=== PATIENT | male | born 1940 | race Caucasian/White ===

== ENCOUNTER 2020-01-04 09:01 | Outpatient (CLI) | payer MEDICARE, SELFPAY ==
[2020-01-04 13:16] LABS: Cholesterol 128 mg/dL (0-200); Creatinine Urine 81.2 mg/dL; HDL Direct 36 mg/dL; Total Protein Urine Random 11 mg/dL; Triglycerides 113 mg/dL (<150)
[2020-01-04 13:17] LABS: Alanine Aminotransferase 23 U/L (4-50); Albumin Level 4.3 g/dL (3.5-5.1); Alkaline Phosphatase 73 U/L (38-126); Aspartate Amino Transferase 22 U/L (17-59); Bilirubin,Total 0.5 mg/dL (0.2-1.3); Blood Urea Nitrogen 46 mg/dL (9-20); Calcium 9.4 mg/dL (8.4-10.2); Carbon Dioxide 23 mmol/L (22-30); Chloride 104 mmol/L (98-107); Estimated Glomerular Filt Rate 34; Glucose 121 mg/dL (75-110); Potassium 5.3 mmol/L (3.4-5.0); Sodium 137 mmol/L (137-145)
[2020-01-04 13:19] LABS: Hemoglobin A1C 8.5 % (<5.7)
[2020-01-04 13:26] LABS: Parathyroid Intact 69.7 pg/mL (7.5-53.5)
[2020-01-04 13:27] LABS: LDL Cholesterol Direct 76 mg/dL
[2020-01-04 13:31] LABS: Vitamin D 25 Hydroxy 22.2 ng/mL
== END 2020-01-04 09:02 | disposition home or self-care (01) ==
LOC: ANHWCLAB 09:12
PROVIDERS: PCP Internal Medicine; Visit Provider Internal Medicine Nephrology
DX: I10 Essential (primary) hypertension (principal); Z79.899 Other long term (current) drug therapy
CPT/HCPCS: 36415; 80053; 80061; 82306; 82570; 83036; 83970; 84100; 84156

== ENCOUNTER 2020-05-30 09:02 | Outpatient (CLI) | payer MEDICARE, SELFPAY ==
[2020-05-30 09:41] LABS: Albumin Level 4.2 g/dL (3.5-5.1); Anion Gap 12.4 mmol/L (7-16); Blood Urea Nitrogen 36 mg/dL (9-20); Calcium 9.6 mg/dL (8.4-10.2); Carbon Dioxide 22 mmol/L (22-30); Chloride 108 mmol/L (98-107); Estimated Glomerular Filt Rate 34; Glucose 140 mg/dL (75-110); Phosphorus 4.1 mg/dL (2.5-4.5); Potassium 4.4 mmol/L (3.4-5.0); Sodium 138 mmol/L (137-145)
[2020-05-30 10:44] LABS: Creatinine Urine 124.8 mg/dL; Total Protein Urine Random 16 mg/dL
[2020-05-30 11:16] LABS: Vitamin D 25 Hydroxy 34.4 ng/mL
== END 2020-05-30 09:03 | disposition home or self-care (01) ==
PROVIDERS: PCP Internal Medicine; Visit Provider Internal Medicine Nephrology
DX: N18.4 Chronic kidney disease, stage 4 (severe) (principal); E11.29 Type 2 diabetes mellitus with other diabetic kidney complication; I12.9 Hypertensive chronic kidney disease with stage 1 through stage 4 chronic kidney disease, or unspecified chronic kidney disease
CPT/HCPCS: 36415; 80069; 82306; 82570; 84156

== ENCOUNTER 2020-11-28 09:12 | Outpatient (CLI) | payer MEDICARE, SELFPAY ==
[2020-11-28 10:01] LABS: Total Protein Urine Random 15 mg/dL
[2020-11-28 10:11] LABS: Alanine Aminotransferase 25 U/L (4-50); Albumin Level 4.2 g/dL (3.5-5.1); Alkaline Phosphatase 69 U/L (38-126); Anion Gap 6 mmol/L (8-16); Aspartate Amino Transferase 26 U/L (17-59); Bilirubin,Total 0.5 mg/dL (0.2-1.3); Blood Urea Nitrogen 29 mg/dL (9-20); Carbon Dioxide 29 mmol/L (22-30); Chloride 105 mmol/L (98-107); Cholesterol 122 mg/dL (0-200); Estimated Glomerular Filt Rate 32; Glucose 141 mg/dL (75-110); HDL Direct 35 mg/dL; Potassium 5.3 mmol/L (3.4-5.0); Sodium 140 mmol/L (137-145); Triglycerides 117 mg/dL (<150)
[2020-11-28 10:12] LABS: Phosphorus 3.5 mg/dL (2.5-4.5)
[2020-11-28 10:21] LABS: LDL Cholesterol Direct 63 mg/dL
[2020-11-28 10:24] LABS: Parathyroid Intact 104.9 pg/mL (7.5-53.5)
[2020-11-28 11:14] LABS: Vitamin D 25 Hydroxy 39.6 ng/mL
[2020-11-28 12:50] LABS: Hemoglobin A1C 8.3 % (<5.7)
== END 2020-11-28 09:13 | disposition home or self-care (01) ==
PROVIDERS: PCP Internal Medicine; Referring Provider Internal Medicine Nephrology; Visit Provider Internal Medicine
DX: I12.9 Hypertensive chronic kidney disease with stage 1 through stage 4 chronic kidney disease, or unspecified chronic kidney disease (principal); R80.8 Other proteinuria; N18.4 Chronic kidney disease, stage 4 (severe); E11.22 Type 2 diabetes mellitus with diabetic chronic kidney disease; E55.9 Vitamin D deficiency, unspecified; E03.9 Hypothyroidism, unspecified; E78.5 Hyperlipidemia, unspecified
CPT/HCPCS: 36415; 80053; 80061; 81050; 82306; 83036; 83970; 84100; 84156; 84443

== ENCOUNTER 2021-05-28 08:56 | Outpatient (CLI) | payer MEDICARE, SELFPAY ==
[2021-05-28 17:12] LABS: Alanine Aminotransferase 26 U/L (4-50); Albumin Level 4.1 g/dL (3.5-5.1); Alkaline Phosphatase 73 U/L (38-126); Anion Gap 7 mmol/L (8-16); Aspartate Amino Transferase 19 U/L (17-59); Bilirubin,Total 0.5 mg/dL (0.2-1.3); Blood Urea Nitrogen 38 mg/dL (9-20); Calcium 9.3 mg/dL (8.4-10.2); Carbon Dioxide 21 mmol/L (22-30); Chloride 111 mmol/L (98-107); Cholesterol 135 mg/dL (0-200); Estimated Glomerular Filt Rate 34; Glucose 126 mg/dL (65-110); HDL Direct 44 mg/dL; Phosphorus 3.3 mg/dL (2.5-4.5); Potassium 5.4 mmol/L (3.4-5.0); Sodium 139 mmol/L (137-145); Triglycerides 75 mg/dL (<150)
[2021-05-28 17:19] LABS: Creatinine Urine 87.6 mg/dL; Total Protein Urine Random 13 mg/dL; Ur Ttl Prot Creatinine Ratio 0.15 mg/mg (0-0.20)
[2021-05-28 17:23] LABS: LDL Cholesterol Direct 65 mg/dL
[2021-05-28 17:34] LABS: Hemoglobin A1C 7.7 % (<5.7); Vitamin D 25 Hydroxy 45.7 ng/mL
== END 2021-05-28 08:57 | disposition home or self-care (01) ==
PROVIDERS: PCP Internal Medicine; Visit Provider Internal Medicine
DX: E03.9 Hypothyroidism, unspecified (principal); E11.22 Type 2 diabetes mellitus with diabetic chronic kidney disease; E55.9 Vitamin D deficiency, unspecified; E78.5 Hyperlipidemia, unspecified; I12.9 Hypertensive chronic kidney disease with stage 1 through stage 4 chronic kidney disease, or unspecified chronic kidney disease; N18.30 Chronic kidney disease, stage 3 unspecified; R80.8 Other proteinuria
CPT/HCPCS: 36415; 80053; 80061; 82306; 82570; 83036; 84100; 84156; 84443

== ENCOUNTER 2021-12-11 09:42 | Outpatient (CLI) | payer MEDICARE, SELFPAY ==
[2021-12-11 17:18] LABS: Albumin Level 4.2 g/dL (3.5-5.1); Anion Gap 12 mmol/L (8-16); Blood Urea Nitrogen 36 mg/dL (9-20); Calcium 9.1 mg/dL (8.4-10.2); Carbon Dioxide 21 mmol/L (22-30); Chloride 107 mmol/L (98-107); Estimated Glomerular Filt Rate 34; Glucose 203 mg/dL (65-110); Potassium 4.7 mmol/L (3.4-5.0); Sodium 140 mmol/L (137-145)
[2021-12-11 17:22] LABS: Creatinine Urine 115.9 mg/dL; Total Protein Urine Random 17 mg/dL; Ur Ttl Prot Creatinine Ratio 0.15 mg/mg (0-0.20)
[2021-12-11 17:30] LABS: Parathyroid Intact 103.4 pg/mL (7.5-53.5)
[2021-12-11 17:37] LABS: Vitamin D 25 Hydroxy 43.2 ng/mL
== END 2021-12-11 09:43 | disposition home or self-care (01) ==
LOC: ANHWCLAB 09:46
PROVIDERS: PCP Internal Medicine; Referring Provider Internal Medicine Nephrology; Visit Provider Internal Medicine Nephrology
DX: N18.32 Chronic kidney disease, stage 3b (principal); E11.29 Type 2 diabetes mellitus with other diabetic kidney complication; I12.9 Hypertensive chronic kidney disease with stage 1 through stage 4 chronic kidney disease, or unspecified chronic kidney disease; R53.81 Other malaise
CPT/HCPCS: 36415; 80069; 82306; 82570; 83970; 84156

== ENCOUNTER 2022-06-09 09:44 | Outpatient (CLI) | payer MEDICARE, SELFPAY ==
[2022-06-09 10:22] LABS: Creatinine Urine 159.2 mg/dL; Total Protein Urine Random 26 mg/dL; Ur Ttl Prot Creatinine Ratio 0.16 mg/mg (0-0.20)
[2022-06-09 10:24] LABS: Albumin Level 4.4 g/dL (3.5-5.1); Anion Gap 9 mmol/L (8-16); Blood Urea Nitrogen 32 mg/dL (9-20); Calcium 9.3 mg/dL (8.4-10.2); Carbon Dioxide 24 mmol/L (22-30); Chloride 104 mmol/L (98-107); Estimated Glomerular Filt Rate 34; Glucose 149 mg/dL (65-110); Phosphorus 3.2 mg/dL (2.5-4.5); Sodium 137 mmol/L (137-145)
== END 2022-06-09 09:45 | disposition home or self-care (01) ==
PROVIDERS: PCP Internal Medicine; Visit Provider Internal Medicine Nephrology
DX: I12.9 Hypertensive chronic kidney disease with stage 1 through stage 4 chronic kidney disease, or unspecified chronic kidney disease (principal); N18.32 Chronic kidney disease, stage 3b; E11.29 Type 2 diabetes mellitus with other diabetic kidney complication
CPT/HCPCS: 36415; 80069; 82570; 84156

== ENCOUNTER 2022-07-06 15:12 | Outpatient (CLI) | payer MEDICARE, SELFPAY ==
--- NOTE | ~2022-07-06 | XR_ITS ---
EXAM: XR knee LT 3V DATE: 07/06/2022 16:00 HISTORY: ant Lt knee pain, bump on Lt patella; no injury . COMPARISON: None available. FINDINGS: Normal mineralization. No fracture or dislocation. No lytic or blastic lesion. Mild medial and lateral joint space narrowing. Tricompartmental osteophytosis, moderate in the patellofemoral co mpartment. Patellar tendon origin enthesopathy. Ovoid prepatellar soft tissue/calcific density. No er osion or periosteal change. Vascular calcifications. 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 Patellar tendon enthesopathy. 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 Reviewed, dictated and finalized at location K. 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 Patellar tendon enthesopathy. Tricompartmental ost eoarthritis, moderate in the patellofemoral compartment.
== END 2022-07-06 15:13 | disposition home or self-care (01) ==
LOC: ANHIMG 15:17
PROVIDERS: PCP Internal Medicine; Visit Provider Internal Medicine
DX: M17.12 Unilateral primary osteoarthritis, left knee (principal); M70.42 Prepatellar bursitis, left knee
CPT/HCPCS: 73562

== ENCOUNTER 2022-12-14 09:02 | Outpatient (CLI) | payer MEDICARE, SELFPAY ==
[2022-12-14 18:13] LABS: Cholesterol 137 mg/dL (0-200); HDL Direct 31 mg/dL; Triglycerides 98 mg/dL (<150)
[2022-12-14 18:14] LABS: Albumin Level 4.3 g/dL (3.5-5.1); Anion Gap 8 mmol/L (8-16); Blood Urea Nitrogen 40 mg/dL (9-20); Calcium 8.9 mg/dL (8.4-10.2); Carbon Dioxide 25 mmol/L (22-30); Chloride 105 mmol/L (98-107); Estimated Glomerular Filt Rate 32; Glucose 162 mg/dL (65-110); Potassium 4.8 mmol/L (3.4-5.0); Sodium 138 mmol/L (137-145)
[2022-12-14 18:24] LABS: LDL Cholesterol Direct 69 mg/dL
[2022-12-14 18:29] LABS: Total Protein Urine Random 13 mg/dL; Ur Ttl Prot Creatinine Ratio 0.11 mg/mg (0-0.20)
[2022-12-14 18:38] LABS: Parathyroid Intact 91.1 pg/mL (7.5-53.5)
[2022-12-14 18:41] LABS: Vitamin D 25 Hydroxy 45.8 ng/mL
[2022-12-14 18:42] LABS: Hemoglobin A1C 7.5 % (<5.7)
== END 2022-12-14 09:03 | disposition home or self-care (01) ==
LOC: ANHWCLAB 09:08
PROVIDERS: PCP Internal Medicine; Visit Provider Internal Medicine Nephrology
DX: N18.32 Chronic kidney disease, stage 3b (principal); E11.22 Type 2 diabetes mellitus with diabetic chronic kidney disease; N25.81 Secondary hyperparathyroidism of renal origin; E55.9 Vitamin D deficiency, unspecified; E03.9 Hypothyroidism, unspecified; E78.2 Mixed hyperlipidemia
CPT/HCPCS: 36415; 80061; 80069; 82306; 82570; 83036; 83970; 84156; 84443

== ENCOUNTER 2023-05-03 09:27 | Outpatient (CLI) | payer MEDICARE, SELFPAY ==
[2023-05-03 16:40] LABS: Hematocrit 37.9 % (42.0-52.0); Hemoglobin 11.9 g/dL (14.0-18.0); Mean Corpuscular HGB Conc 31.4 g/dl (32-36); Mean Corpuscular Hemoglobin 31.3 pg (26-34); Mean Corpuscular Volume 99.7 fl (80-100); Mean Platelet Volume 9.4 fl (7.4-10.4); Platelet Count Result 414 k/mm3 (150-375); Red Cell Distribution Width 14.2 % (11.5-14.5)
[2023-05-03 16:54] LABS: Alanine Aminotransferase 17 U/L (6-50); Albumin Level 4.2 g/dL (3.5-5.1); Alkaline Phosphatase 73 U/L (38-126); Anion Gap 0 mmol/L (8-16); Aspartate Amino Transferase 99 U/L (17-59); Bilirubin,Total 0.6 mg/dL (0.2-1.3); Blood Urea Nitrogen 38 mg/dL (9-20); Calcium 9.2 mg/dL (8.4-10.2); Carbon Dioxide 29 mmol/L (22-30); Chloride 106 mmol/L (98-107); Estimated Glomerular Filt Rate 36; Glucose 98 mg/dL (65-110); Potassium 4.8 mmol/L (3.4-5.0); Sodium 135 mmol/L (137-145)
[2023-05-03 16:56] LABS: Hemoglobin A1C 7.3 % (<5.7)
[2023-05-03 17:08] LABS: Free T4 Free Thyroxine 1.86 ng/mL (0.78-2.19)
[2023-05-06 23:14] LABS: Vitamin D 1,25 (OH)2 Total 21 pg/mL (18-72); Vitamin D2 1,25 (OH)2 <8 pg/mL; Vitamin D3 1,25 (OH)2 21 pg/mL
== END 2023-05-03 09:28 | disposition home or self-care (01) ==
LOC: ANHWCLAB 09:28
PROVIDERS: PCP Family Medicine; Visit Provider Internal Medicine
DX: E03.9 Hypothyroidism, unspecified (principal); E11.22 Type 2 diabetes mellitus with diabetic chronic kidney disease; E55.9 Vitamin D deficiency, unspecified; I10 Essential (primary) hypertension; N18.32 Chronic kidney disease, stage 3b
CPT/HCPCS: 36415; 80053; 82652; 83036; 84439; 84443; 85027

== ENCOUNTER 2023-06-15 09:12 | Outpatient (CLI) | payer MEDICARE, SELFPAY ==
[2023-06-15 09:57] LABS: Creatinine Urine 97.7 mg/dL; Total Protein Urine Random 14 mg/dL; Ur Ttl Prot Creatinine Ratio 0.14 mg/mg (0-0.20)
[2023-06-15 10:28] LABS: Albumin Level 3.8 g/dL (3.5-5.1); Anion Gap 3 mmol/L (8-16); Blood Urea Nitrogen 40 mg/dL (9-20); Calcium 8.7 mg/dL (8.4-10.2); Carbon Dioxide 26 mmol/L (22-30); Chloride 106 mmol/L (98-107); Estimated Glomerular Filt Rate 34; Glucose 162 mg/dL (65-110); Phosphorus 3.6 mg/dL (2.5-4.5); Potassium 4.5 mmol/L (3.4-5.0); Sodium 135 mmol/L (137-145)
== END 2023-06-15 09:13 | disposition home or self-care (01) ==
LOC: ANHLAB 09:13
PROVIDERS: PCP Family Medicine; Visit Provider Internal Medicine Nephrology
DX: E11.22 Type 2 diabetes mellitus with diabetic chronic kidney disease (principal); I12.9 Hypertensive chronic kidney disease with stage 1 through stage 4 chronic kidney disease, or unspecified chronic kidney disease; N18.32 Chronic kidney disease, stage 3b
CPT/HCPCS: 36415; 80069; 82570; 84156

== ENCOUNTER 2023-11-03 09:12 | Outpatient (CLI) | payer MEDICARE, SELFPAY ==
[2023-11-03 17:27] LABS: Basophils Absolute Auto 0.1 K/mm3 (0.0-0.1); Basophils Percent Auto 1.4 % (0.2-1.2); Eosinophils Absolute Auto 0.3 K/mm3 (0-0.3); Eosinophils Percent Auto 4.7 % (0-4.4); Hematocrit 38.3 % (42.0-52.0); Hemoglobin 11.8 g/dL (14.0-18.0); Immature Granulocyte Absolute 0.02 K/mm3 (0.00-0.031); Immature Granulocyte Percent A 0.3 % (0-0.5); Lymphocytes Absolute Auto 1.75 K/mm3 (0.9-3.2); Lymphocytes Percent Auto 25.1 % (18.3-44.2); Mean Corpuscular HGB Conc 30.8 g/dl (32-36); Mean Corpuscular Hemoglobin 31.4 pg (26-34); Mean Corpuscular Volume 101.9 fl (80-100); Mean Platelet Volume 9.4 fl (7.4-10.4); Monocytes Absolute Auto 0.6 K/mm3 (0.1-0.6); Monocytes Percent Auto 8.9 % (2.6-8.5); Neutrophils Absolute Auto 4.2 K/mm3 (1.3-6.7); Neutrophils Percent Auto 59.6 % (45.5-73.1); Nucleated Red Blood Cells Perc 0.6 % (0.0-0.2); Platelet Count Result 590 k/mm3 (150-375); Red Blood Count 3.76 M/mm3 (4.6-6.20); Red Cell Distribution Width 14.3 % (11.5-14.5)
[2023-11-03 17:33] LABS: Anion Gap 5 mmol/L (8-16); Blood Urea Nitrogen 35 mg/dL (9-20); Calcium 9.3 mg/dL (8.4-10.2); Carbon Dioxide 28 mmol/L (22-30); Chloride 104 mmol/L (98-107); Estimated Glomerular Filt Rate 36; Glucose 115 mg/dL (65-110); Phosphorus 3.5 mg/dL (2.5-4.5); Potassium 5.1 mmol/L (3.4-5.0); Sodium 137 mmol/L (137-145)
[2023-11-03 17:35] LABS: Alanine Aminotransferase 22 U/L (6-50); Alkaline Phosphatase 74 U/L (38-126); Anion Gap 7 mmol/L (8-16); Aspartate Amino Transferase 107 U/L (17-59); Bilirubin,Total 0.6 mg/dL (0.2-1.3); Blood Urea Nitrogen 35 mg/dL (9-20); Calcium 9.2 mg/dL (8.4-10.2); Carbon Dioxide 27 mmol/L (22-30); Chloride 104 mmol/L (98-107); Cholesterol 139 mg/dL (0-200); Estimated Glomerular Filt Rate 36; Glucose 113 mg/dL (65-110); HDL Direct 42 mg/dL; Potassium 5.2 mmol/L (3.4-5.0); Sodium 138 mmol/L (137-145); Triglycerides 106 mg/dL (<150)
[2023-11-03 17:46] LABS: Parathyroid Intact 95.3 pg/mL (7.5-53.5)
[2023-11-03 17:46] LABS: LDL Cholesterol Direct 63 mg/dL
[2023-11-03 17:48] LABS: Creatinine Urine 122.9 mg/dL; Total Protein Urine Random 8 mg/dL; Ur Ttl Prot Creatinine Ratio 0.07 mg/mg (0-0.20)
[2023-11-03 18:04] LABS: Thyroid Stimulating Hormone 0.924 uIU/mL (0.465-4.680)
[2023-11-03 18:19] LABS: Creatinine Urine 118.9 mg/dL
[2023-11-03 18:27] LABS: MALB Creatinine Ratio 28.5 mg/g (0-30); Microalbumin Urine Random 33.9 mg/L (0-16.7)
[2023-11-03 18:31] LABS: Vitamin D 25 Hydroxy 40.5 ng/mL
[2023-11-03 19:24] LABS: Hemoglobin A1C 7.2 % (<5.7)
== END 2023-11-03 09:13 | disposition home or self-care (01) ==
PROVIDERS: Internal Medicine Nephrology; PCP Nurse Practitioner Family; Visit Provider Nurse Practitioner Family
DX: E11.22 Type 2 diabetes mellitus with diabetic chronic kidney disease (principal); R53.83 Other fatigue; E78.2 Mixed hyperlipidemia; E03.9 Hypothyroidism, unspecified; I12.9 Hypertensive chronic kidney disease with stage 1 through stage 4 chronic kidney disease, or unspecified chronic kidney disease; E55.9 Vitamin D deficiency, unspecified
CPT/HCPCS: 36415; 80053; 80061; 80069; 82043; 82306; 82570; 83036; 83970; 84156; 84443; 85025

== ENCOUNTER 2024-06-04 09:36 | Outpatient (CLI) | payer MEDICARE, SELFPAY ==
[2024-06-04 10:17] LABS: Anion Gap 9 mmol/L (4-12); Blood Urea Nitrogen 91 mg/dL (9-20); Calcium 9.3 mg/dL (8.4-10.2); Carbon Dioxide 27 mmol/L (22-30); Chloride 100 mmol/L (98-107); Estimated Glomerular Filt Rate 42; Glucose 100 mg/dL (65-110); Phosphorus 5.5 mg/dL (2.5-4.5); Potassium 5.3 mmol/L (3.4-5.0); Sodium 136 mmol/L (137-145)
[2024-06-04 11:51] LABS: Creatinine Urine 103.3 mg/dL; Total Protein Urine Random 7 mg/dL; Ur Ttl Prot Creatinine Ratio 0.07 mg/mg (0-0.20)
== END 2024-06-04 09:37 | disposition home or self-care (01) ==
LOC: ANHLAB 09:42
PROVIDERS: PCP Nurse Practitioner Family; Visit Provider Internal Medicine Nephrology
DX: E11.22 Type 2 diabetes mellitus with diabetic chronic kidney disease (principal); N18.32 Chronic kidney disease, stage 3b; I12.9 Hypertensive chronic kidney disease with stage 1 through stage 4 chronic kidney disease, or unspecified chronic kidney disease
CPT/HCPCS: 36415; 80069; 82570; 84156

== ENCOUNTER 2024-10-04 09:09 | Outpatient (CLI) | payer MEDICARE, SELFPAY ==
[2024-10-04 10:13] LABS: Alanine Aminotransferase 18 U/L (6-50); Alkaline Phosphatase 63 U/L (38-126); Anion Gap 3 mmol/L (4-12); Aspartate Amino Transferase 29 U/L (17-59); Bilirubin,Total 0.8 mg/dL (0.2-1.3); Blood Urea Nitrogen 27 mg/dL (9-20); Calcium 9.4 mg/dL (8.4-10.2); Carbon Dioxide 30 mmol/L (22-30); Chloride 105 mmol/L (98-107); Cholesterol 155 mg/dL (0-200); Estimated Glomerular Filt Rate 36; Glucose 118 mg/dL (65-110); HDL Direct 49 mg/dL; Potassium 4.8 mmol/L (3.4-5.0); Sodium 138 mmol/L (137-145); Triglycerides 92 mg/dL (<150)
[2024-10-04 10:18] LABS: Hemoglobin A1C 6.1 % (<5.7)
[2024-10-04 10:24] LABS: LDL Cholesterol Direct 72 mg/dL
== END 2024-10-04 09:10 | disposition home or self-care (01) ==
LOC: ANHLAB 09:10
PROVIDERS: PCP Nurse Practitioner Family; Visit Provider Nurse Practitioner Family
DX: E11.22 Type 2 diabetes mellitus with diabetic chronic kidney disease (principal); I12.9 Hypertensive chronic kidney disease with stage 1 through stage 4 chronic kidney disease, or unspecified chronic kidney disease; N18.30 Chronic kidney disease, stage 3 unspecified; K13.0 Diseases of lips
CPT/HCPCS: 36415; 80053; 80061; 83036

== ENCOUNTER 2024-12-05 13:01 | Outpatient (CLI) | payer MEDICARE, SELFPAY ==
--- OUTSIDE RECORDS SUMMARY | 2024-12-05 13:07 | XMS_ITS ---
Author Organization [facility] Address [address] 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 Past Plans No past plan information found. Radiation Treatments * Plan Last Treated On Elapsed Days Fractions Treated Prescribed Fraction Dose Prescribed Total Dose #OralCavity HN 06/13/2024 30 of 30 6,000 cGy Reference Point Last Treated On Elapsed Days Session Dose Total Dose [id number] 06/13/2024 200 cGy 6,000 cGy Lifetime Dose Tracking * Chemical Lifetime Dose Automatic Entry Manual Entr y Dose Length Product 570 mGy-cm 570 mGy-cm 0 mGy-cm
--- OUTSIDE RECORDS SUMMARY | 2024-12-05 13:07 | XMS_ITS | Clinical Summary ---
Author Organization [facility] Address [address] [place] [address] Care Team Providers Care Offal Trimmer Name Role Phone Chhaya Thornton MELANIA-TERRAZZO FINISHER Primary Care Provider Source Comments [facility],non-owned Affiliates and Associated Physician Practices is amultiple site organization consisting of ambulatory clinics and hospital sitesin [place], [place], [place] and [place]. This disclosure is being madepursuant to the Care Everywhere program and may not contain all information available regarding this patient. Last updated 18.[facility] Allergies Active Allergy Reactions Criticality Noted Date Comments Honey Swelling 03/30/2024 Medications * Be aware that medications may not be up to date on this document. Alwaysverify current medications with the patient. Medication Sig Dispensed Refills Start Date End Date Status acarbose (Precose) 50 MG tablet Take 1 (one) tablet by mouth 3 times daily 01/12/2024 Active glimepiride (Amaryl) 2 MG tablet Take 1 (one) tablet by mouth 2 times daily with morning and evening meal 01/02/2024 Active levothyroxine (Synthroid) 125 MCG tablet Take 1 (one) tablet by mouth once daily 01/01/2024 Active olmesartan (Benicar) 20 MG tablet Take 1 (one) tablet by mouth once daily 01/02/2024 Active Ozempic, 1 MG/DOSE, 4 MG/3ML pen Inject 1 (one) mg subcutaneously every 7 days 11/11/2023 Active simvastatin (Zocor) 40 MG tablet Take 1 (one) tablet by mouth once daily 01/01/2024 Active lidocaine viscous (Xylocaine) 2 % solution Swish and swallow 15 mL every 3 hours as needed for Sore Throat or Pain 100 mL 5 05/21/2024 Active acetaminophen CR (Tylenol Arthritis Pain) 650 MG tablet Take 1 (one) tablet by mouth 2 times daily Active benzocaine-menthol (Chloraseptic) 6-10 MG lozenge Take by mouth as needed for Sore Throat Activ e Active Problems Problem Noted Date Diagnosed Date Moderate protein-calorie malnutrition 06/01/2024 Weight loss, unintentional 06/01/2024 Inadequate dietary energy intake 06/01/2024 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 Encounters Date Type Department Care Team Description 09/14/2024 12:02 PM SENIOR ENERGY CONSULTANT - 09/14/2024 11:59 PM [facility] Hospital Encounter [facility] [address] [place] [address] Miya Aleman MD Discharge Disposition: Home or Self Care 09/14/2024 11:30 AM SENIOR ENERGY CONSULTANT Office Visit [facility] - ENT [address] [place] [address] Elpidio Scott MD Squamous cell carcinoma of lip (Primary Dx) 09/14/2024 10:05 AM SENIOR ENERGY CONSULTANT - 09/14/2024 12:01 PM [facility] Hospital Encounter [facility] CAT SCAN [address] [place] [phone] Elpidio Scott MD Discharge Disposition: Home or Self Care 09/14/2024 10:04 AM [facility] Hospital Encounter [facility] CAT SCAN [address] [place] [phone] Elpidio Scott MD Discharge Disposition: Home or Self Care from Last 3 Months Immunizations Name Administration Dates Next Due FLU VACCINE TRI IIV3 SPLIT I M (FLUVIRIN) 06/29/2010 INFLUENZA VACCINE, ADJUVANTE D, QUADR. (FLUAD QUADRIVALENT; 65Y+) (AIIV4) 08/20/2023,08/09/2022,08/21/2021,2019 INFLUENZA VACCINE, ADJUVANTE D, TRIV. (FLUAD TRIVALENT; 65Y+) (AIIV3) 11/17/2018 INFLUENZA VACCINE, HIGH-DOSE , TRIV. (FLUZONE HIGH-DOSE TRIVALENT; 65Y+) (HD-IIV3) 08/17/2024,09/03/2019,08/17/2018,2016,09/28/2016 PNEUMOCOCCAL PPV VACCINE 11/29/2011,06/29/2007 Pneumococcal Pcv13 Conj 09/03/2019 Family History Medical History Relation Name Comments Diabetes; unknown type Brother Hypertension Father Arthritis - Rheumatoid Mother Seizures Mother Diabetes; unknown type Sister Relation Name Status Comments Brother Father Mother Sister Social History Tobacco Use Types Packs/Day Years Used Date Smoking Tobacco: Former Cigarettes Smokeless Tobacco: Never Tobacco Cessation:Counseling Given: Not Answered Passive Exposure Comments:reports smoking 1 cigarette when he was 19yrs old and never agian. Alcohol Use Standard Drinks/Week Comments Never 0 (1 standard drink = 0.6 oz pur e alcohol) AUDIT-C Answer Date Recorded Q1: How often do you have a drink containing alcohol? Never 04/17/2024 Q2: How many drinks containi ng alcohol do you have on a typical day when you are drinking? Patient does not drink Q3: How often do you have si x or more drinks on one occasion? Never 04/17/2024 Overall Financial Resource Strain (CARDIA) Answe r Date Recorded How hard is it for you to pa y for the very basics like food, housing, medical care, and heating? Patient unable to answer 02/27/2024 PHQ-2 Answer Date Recorded Patient Health Questionnaire-2 Score 0 03/30/2024 [facility] - Occupational Stress Questionnaire Answer Date Recorded Do you feel stress - tense, restless, nervous, or anxious, or unable to sleep at night because your mind is troubled all the time - these days? Patient unable to answer 02/27/2024 Hunger Vital Sign Answer Date Recorded Within the past 12 months, y ou worried that your food would run out before you got the money to buy more. Patient unable to answer 02/27/2024 Within the past 12 months, t he food you bought just didn't last and you didn't have money to get more. Patient unable to answer 02/27/2024 PRAPARE - Transportation Answer Date Re corded In the past 12 months, has l ack of transportation kept you from medical appointments or from getting medications? Patient unable to answer 02/27/2024 In the past 12 months, has l ack of transportation kept you from meetings, work, or from getting things needed for daily living? Patient unable to answer 02/27/2024 Housing Stability Vital Sign Answer Grant e Recorded In the last 12 months, was t here a time when you were not able to pay the mortgage or rent on time? Patient unable to answer 02/27/2024 Number of Places Lived in the Last Year Not on f ile 02/27/2024 In the last 12 months, was t here a time when you did not have a steady place to sleep or slept in a senior living (including now)? Patient unable to answer 02/27/2024 Sex and Gender Information Value Date Recorded Sex Assigned at Not on file Gender Identity Not on file Sexual Orientation Not on file Last Filed Vital Signs Vital Sign Reading Time Taken Comments Blood Pressure 113/58 09/14/2024 12:07 PM SENIOR ENERGY CONSULTANT Pulse 73 09/14/2024 12:07 PM SENIOR ENERGY CONSULTANT Temperature 36.2 C (97.2 F) 09/14/2024 12:07 PM SENIOR ENERGY CONSULTANT Respiratory Rate 18 09/14/2024 12:07 PM SENIOR ENERGY CONSULTANT Oxygen Saturation 100% 09/14/2024 12:07 PM SENIOR ENERGY CONSULTANT Inhaled Oxygen Concentration 21% 03/12/2024 4 :29 PM CDT Weight 71.8 kg (158 lb 6.4 oz) 09/14/2024 12:07 PM SENIOR ENERGY CONSULTANT Height 177.8 cm (5' 10 ) 09/14/2024 10:40 AM SENIOR ENERGY CONSULTANT Body Mass Index 22.73 09/14/2024 10:40 AM SENIOR ENERGY CONSULTANT Plan of Treatment Upcoming Encounters Date Type Department Care Team (Late st Contact Info) Description 12/19/2024 11:00 AM SENIOR ENERGY CONSULTANT Office Visit [facility] - ENT [address] [place] [phone] Elpidio Scott MD [address] [place] [id number] 12/19/2024 11:30 AM SENIOR ENERGY CONSULTANT Appointment [facility] [address] [place] [id number] Miya Aleman MD [address] [place] [phone] Health Maintenance Due Date Last Done Comments DTAP/TDAP/TD VACCINES (1 - Tdap) 1960 ZOSTER VACCINE (1 of 2) 1991 Respiratory Syncytial Virus (RSV) Vaccine Pt: or over 60 yrs (1 - 1-dose 75+ series) 2016 COVID-19 VACCINE ( - season) 2024 DEPRESSION SCREENING 10/24/2024 03/30/2024 MEDICARE AWV CALENDAR YEAR 2024 PNEUMOCOCCAL VACCINE 50+ Completed 019, 11/29/2011, 06/29/2007 INFLUENZA VACCINE Completed 08/17/2024, , 08/09/2022, Additional history exists HEPATITIS B VACCINE Aged Out No longe r eligible based on patient's age to complete this topic HIB VACCINE Aged Out No longer eligi ble based on patient's age to complete this topic HPV VACCINE Aged Out No longer eligi ble based on patient's age to complete this topic MENINGOCOCCAL (Group B) VACCINE Aged Out No longer eligible based on patient's age to complete this topic MENINGOCOCCAL VACCINE Aged Out No montserrat corin eligible based on patient's age to complete this topic Procedures Procedure Name Priority Date/Time Associated Diagnosis Comments CT NECK SOFT TISSUE W CONT Routine 09/14/2024 10:35 AM SENIOR ENERGY CONSULTANT Oral cancer (HCC) CT CHEST W CONTRAST Routine 09/14/2024 1 0:34 AM SENIOR ENERGY CONSULTANT Mass of lip CREATININE - POCT INTERFACED Routine 09/14/2024 10:14 AM SENIOR ENERGY CONSULTANT from Last 3 Months Results * CT Neck Soft Tissue W Cont (09/14/2024 10:35 AM SENIOR ENERGY CONSULTANT) Anatomical Region Laterality Modality Head Computed Tomogra phy 09/14/2024 10:5 3 AM SENIOR ENERGY CONSULTANT Impressions 09/14/2024 11:05 AM SENIOR ENERGY CONSULTANT IMPRESSION: 1. Postoperative changes of interval resection of a heterogeneously enhancing ulcerated mass in the left lower lip and bilateral neck lymph node dissection. No definite masslike enhancement in the surgical bed to suggest residual or recurrent tumor. 2. Post radiation changes in the neck. 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 Contrast: IOPAMIDOL 76 % IV SOLN:50 mL COMPARISON: 02/10/2024. FINDINGS: Postoperative changes of interval resection of a heterogeneously enhancing ulcerated mass in the left lower lip and the bilateral neck lymph node dissection. Some scarring is noted in the surgical bed. No definite masslike enhancement is identified in the surgical bed to suggest residual or recurrent tumor. There is moderate diffuse edema in the subcutaneous and deep fascia in the anterior neck and in the retropharynx. Mild thickening of the platysma muscles and mild mucosal thickening of the upper airway. These findings likely represent post radiation changes. Multiple small residual subcentimeter lymph nodes are noted in both sides of the neck with no evidence of cervical lymphadenopathy. The muscles of the neck appear normal. The cervical internal carotid arteries and internal jugular veins appear normal. The nasopharynx, oropharynx, hypopharynx and larynx appear normal. The visualized airway is patent. The visualized portions of the posterior fossa and brain appear normal. There is cervical degenerative disc and joint disease. The visualized orbits and paranasal sinuses appear normal. The thyroid gland is normal. The visible lung apices are clear. 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 Contrast: IOPAMIDOL 76 % IV SOLN:50 mL COMPARISON: 02/10/2024. FINDINGS: Postoperative changes of interval resection of a heterogeneouslyenhancing ulcerated mass in the left lower lip and the bilateral neck lymph node dissection. Some scarring is noted in the surgical bed. No definite masslike enhancement is identified in the surgical bed to suggestresidual or recurrent tumor. There is moderate diffuse edema in the subcutaneous and deep fascia inthe anterior neck and in the retropharynx. Mild thickening of the platysma muscles and mild mucosal thickening of the upper airway. These findings likely represent post radiation changes. Multiple small residual subcentimeter lymph nodes are noted in bothsides of the neck with no evidence of cervical lymphadenopathy. The muscles of the neck appear normal. The cervical internal carotid arteries andinternal jugular veins appear normal. The nasopharynx, oropharynx, hypopharynxand larynx appear normal. The visualized airway is patent. The visualized portions of the posterior fossa and brain appear normal. There is cervical degenerative disc and joint disease. The visualized orbits and paranasal sinuses appear normal. The thyroid gland is normal. The visible lung apices are clear. IMPRESSION: 1. Postoperative changes of interval resection of a heterogeneously enhancing ulcerated mass in the left lower lip and bilateral neck lymph node dissection. No definite masslike enhancement in the surgical bed to suggest residual or recurrent tumor. 2. Post radiation changes in the neck. > Interpreting Provider: Eloy Benton MD on 09/14/2024 11:05 AM Elpidio Scott MD CT ORDERABLES * CT CHEST W CONTRAST (09/14/2024 10:34 AM SENIOR ENERGY CONSULTANT) Anatomical Region Laterality Modality Chest Computed Tomogra phy 09/14/2024 11:2 5 AM SENIOR ENERGY CONSULTANT Impressions 09/14/2024 2:56 PM SENIOR ENERGY CONSULTANT Impression: 1.No evidence of metastatic disease in the chest. > Dictated by Nikos Johnson MD, (Robotic Welding Operator). ICarlitos have personally reviewed and interpreted this examination/study. > Interpreting Provider: Carlitos Felipe on 09/14/2024 2:56 PM Narrative 09/14/2024 2:56 PM SENIOR ENERGY CONSULTANT PROCEDURE: CT CHEST W CONTRAST, DATE/TIME OF EXAM: 09/14/2024 10:34 AM, LOCATION [facility] INDICATION: K13.0: Mass of lip ADDITIONAL CLINICAL INFORMATION: Ordering Provider Reason For Exam: Technologist Note: Additional: COMPARISON: Chest x-ray dated 03/06/2024 TECHNIQUE: CT of the chest was performed was performed following the uneventful administration of 100 mL of Isovue 370 intravenous contrast according to standard protocol. Findings: Lower Neck and Axillae: Normal. Lungs: No pulmonary parenchymal or airway process is present. No suspicious pulmonary nodules are identified. No pleural fluid or pneumothorax is present. Calcified granuloma in the right lower lobe. Left lower lobe ovoid fat-containing 1.8 cm pleural lesion likely represent lipoma. Heart and Pericardium: The cardiac chambers are normal in size. No pericardial fluid or thickening is present. The coronary arteries are atherosclerotic. Mediastinum and Cookie: No enlarged lymph nodes are present. Thoracic Vasculature: The aorta and its branch vessels are atherosclerotic. Bones and Chest Wall: Bone windows demonstrate no suspicious lytic or blastic lesions. The visible osseous structures are intact. Degenerative changes are seen in the spine. Upper Abdomen: Small right renal cyst, otherwise the visible portions of the upper abdominal organs are normal. The left kidney is not visualized. Procedure Note Carlitos Felipe MD - 09/14/2024 PROCEDURE: CT CHEST W CONTRAST, DATE/TIME OF EXAM: 09/14/2024 10:34AM, LOCATION [facility] INDICATION: K13.0: Mass of lip ADDITIONAL CLINICAL INFORMATION: Ordering Provider Reason For Exam: Technologist Note: Additional: COMPARISON: Chest x-ray dated 03/06/2024 TECHNIQUE: CT of the chest was performed was performed following the uneventful administration of 100 mL of Isovue 370 intravenous contrast according to standard protocol. Findings: Lower Neck and Axillae: Normal. Lungs: No pulmonary parenchymal or airway process is present. No suspicious pulmonary nodules are identified. No pleural fluid or pneumothorax is present. Calcified granuloma in the right lower lobe. Left lower lobeovoid fat-containing 1.8 cm pleural lesion likely represent lipoma. Heart and Pericardium: The cardiac chambers are normal in size. No pericardial fluid orthickening is present. The coronary arteries are atherosclerotic. Mediastinum and Cookie: No enlarged lymph nodes are present. Thoracic Vasculature: The aorta and its branch vessels are atherosclerotic. Bones and Chest Wall: Bone windows demonstrate no suspicious lytic or blastic lesions. The visible osseous structures are intact. Degenerative changes are seen inthe spine. Upper Abdomen: Small right renal cyst, otherwise the visible portions of the upper abdominal organs are normal. The left kidney is not visualized. Impression: 1.No evidence of metastatic disease in the chest. > Dictated by Nikos Johnson MD, (Robotic Welding Operator). I, Carlitos Felipe have personally reviewed and interpreted this examination/study. > Interpreting Provider: Carlitos Felipe on 09/14/2024 2:56 PM Elpidio Scott MD CT ORDERABLES * (ABNORMAL) CREATININE - POCT INTERFACED (09/14/2024 10:14 AM SENIOR ENERGY CONSULTANT) Creatinine POCT 1.35(H) 0.30 - 1.30 mg/dL 09/14/2024 10:15 AM SENIOR ENERGY CONSULTANT [facility] eGFR 52(L) >=90 mL/min/1.7 3 m2 09/14/2024 10:15 AM SENIOR ENERGY CONSULTANT [facility] Blood BLOOD SPECIMEN / Unknown 09/14/2024 10:14 AM SENIOR ENERGY CONSULTANT 09/14/2024 10:15 AM SENIOR ENERGY CONSULTANT Elpidio Scott MD LAB - POINT OF CARE ORDERABLES [facility] [address] [place] [address], [facility] [[email or web address]] [phone] from Last 3 Months Advance Directives * Full Code (Latest Code Status on File) Date Activated Date Inactivated Comments 02/27/2024 3:40 PM 03/25/2024 5:05 PM Care Teams Offal Trimmer Relationship Specialty Start Date End Date Chhaya Thornton APRN-TERRAZZO FINISHER [address] [place] [address] PCP - General Nurse Practitioner Adult Health 02/10/24
--- OUTSIDE RECORDS SUMMARY | 2024-12-05 13:07 | XMS_ITS | Clinical Summary ---
Author Organization [facility] Address [address], [place] [address] Phone Care Team Providers Care Lining Strap Closer Name Role Phone Venkata Rocha DO Primary Care Provider [phone] Allergies No known active allergies Medications Medication Sig Dispensed Refills Start Date End Date Status simvastatin (ZOCOR) 40 MG tablet 1 qday 0 12/06/2018 Active aspirin (ASPIRIN ADULT LOW STRENGTH) 81 MG EC tablet 1 qday 0 12/06/2018 Active ergocalciferol (VITAMIN D-2) 20580 units capsule 1 every month 0 12/06/2018 Active olmesartan (BENICAR) 20 MG tablet 1 qday 0 12/06/2018 Active levothyroxine (SYNTHROID, LEVOTHROID) 125 MCG tablet 1 qday 0 12/06/2018 Active acarbose (PRECOSE) 50 MG tablet 1 tid 0 12/06/2018 Active TRULICITY 1.5 MG/0.5ML solution pen-injector 12/04/2019 Act betito glimepiride (AMARYL) 2 MG tablet TAKE 1 TABLET BY MOUTH EVERY DAY IN THE MORNING 12/11/2019 Active Active Problems Problem Noted Date Diagnosed Date Abnormal result of kidney function study 019 Chronic kidney disease, stage 4 (severe) 019 Type 2 diabetes mellitus wit h other diabetic kidney complication 12/06/2018 Hypertensive chronic kidney disease with stage 1 through stage 4 chronic kidney disease, or unspecified chronic kidney disease 12/06/2018 Mixed hyperlipidemia 12/06/2018 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 Immunizations Name Administration Dates Next Due Influenza Trivalent Adjuvanted 11/17/2018 Pneumococcal Conjugate 13-Valent 09/03/2019 Family History Medical History Relation Comments Kidney disease Neg Hx Kidney stone Neg Hx Social History Tobacco Use Types Packs/Day Years Used Date Smoking Tobacco: Never Smokeless Tobacco: Never Alcohol Use Standard Drinks/Week Comments No 0 (1 standard drink = 0.6 oz pur e alcohol) Sex and Gender Information Value Date Recorded Sex Assigned at Not on file Gender Identity Not on file Sexual Orientation Not on file Last Filed Vital Signs Vital Sign Reading Time Taken Comments Blood Pressure 132/78 06/16/2022 1:01 PM CDT Pulse - - Temperature 36.6 C (97.9 F) 06/16/2022 1:01 PM CDT Respiratory Rate 18 06/16/2022 1:01 PM CDT Oxygen Saturation - - Inhaled Oxygen Concentration - - Weight 92.5 kg (204 lb) 06/16/2022 1:01 PM CDT Height 170.2 cm (5' 7 ) 06/16/2022 1:01 PM CDT Body Mass Index 31.95 06/16/2022 1:01 PM CDT Plan of Treatment Health Maintenance Due Date Last Done Comments Diabetic Foot Exam 1950 Ophthalmology Exam 1950 Pneumococcal PPSV23/PCV13 65 + Years / High and Highest Risk (2 of 4 - PPSV23 or PCV20) 10/29/2019 09/03/2019 Influenza Vaccine (#1) 2024 11/17/2018 Care Teams Lining Strap Closer Relationship Specialty Start Date End Date Venkata Rocha DO [address] [place] [address] PCP - General Internal Medicine 06/02/20
--- OUTSIDE RECORDS SUMMARY | 2024-12-05 13:08 | XMS_ITS | Referral Summary ---
Author Organization [facility] Address [address] [place] [address] Care Team Providers Care Programmer Numerical Control Name Role Phone Chhaya Thornton APRN-HEALTH DIRECTOR Primary Care Provider Source Comments [facility],non-owned Affiliates and Associated Physician Practices is amultiple site organization consisting of ambulatory clinics and hospital sitesin [place], [place], [place] and [place]. This disclosure is being madepursuant to the Care Everywhere program and may not contain all information available regarding this patient. Last updated 18.[facility] Encounters Date Type Department Care Team Description 09/14/2024 11:30 AM RESEARCH GEOLOGIST Office Visit [facility] [address] [place] [phone] Elpidio Scott MD Squamous cell carcinoma of lip (Primary Dx) 09/14/2024 10:05 AM RESEARCH GEOLOGIST - 09/14/2024 12:01 PM RESEARCH GEOLOGIST Hospital Encounter [facility] [address] [place] [phone] Elpidio Scott MD Discharge Disposition: Home or Self Care 09/14/2024 10:04 AM RESEARCH GEOLOGIST Hospital Encounter [facility] [address] [place] [phone] Elpidio Scott MD Discharge Disposition: Home or Self Care 09/14/2024 12:02 PM RESEARCH GEOLOGIST - 09/14/2024 11:59 PM RESEARCH GEOLOGIST Hospital Encounter [facility] [address] [place] [address] Miya Aleman MD Discharge Disposition: Home or Self Care from Last 3 Months Allergies Active Allergy Reactions Criticality Noted Date [...] 06/01/2024 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 Immunizations Name Administration Dates Next Due FLU VACCINE TRI IIV3 SPLIT I M (FLUVIRIN) 06/29/2010 INFLUENZA VACCINE, ADJUVANTE D, QUADR. (FLUAD QUADRIVALENT; 65Y+) (AIIV4) 08/20/2023,08/09/2022,08/21/2021,2019 INFLUENZA VACCINE, ADJUVANTE D, TRIV. (FLUAD TRIVALENT; 65Y+) (AIIV3) 11/17/2018 INFLUENZA VACCINE, HIGH-DOSE , TRIV. (FLUZONE HIGH-DOSE TRIVALENT; 65Y+) (HD-IIV3) 08/17/2024,09/03/2019,08/17/2018,2016,09/28/2016 PNEUMOCOCCAL PPV VACCINE 11/29/2011,06/29/2007 Pneumococcal Pcv13 Conj 09/03/2019 Social History Tobacco Use Types Packs/Day Years [...] Recorded Patient Health Questionnaire-2 Score 0 03/30/2024 [facility] [place] of Occupat ional Health - Occupational Stress [...] place to sleep or slept in a custodial (including now)? Patient unable to answer 02/27/2024 Sex and Gender Information Value Date Recorded Sex Assigned at Not on file Gender Identity Not on file Sexual Orientation Not on file Last Filed Vital Signs Vital Sign Reading Time Taken Comments Blood Pressure 113/58 09/14/2024 12:07 PM RESEARCH GEOLOGIST Pulse 73 09/14/2024 12:07 PM RESEARCH GEOLOGIST Temperature 36.2 C (97.2 F) 09/14/2024 12:07 PM RESEARCH GEOLOGIST Respiratory Rate 18 09/14/2024 12:07 PM RESEARCH GEOLOGIST Oxygen Saturation 100% 09/14/2024 12:07 PM RESEARCH GEOLOGIST Inhaled Oxygen Concentration 21% 03/12/2024 4 :29 PM CDT Weight 71.8 kg (158 lb 6.4 oz) 09/14/2024 12:07 PM RESEARCH GEOLOGIST Height 177.8 cm (5' 10 ) 09/14/2024 10:40 AM RESEARCH GEOLOGIST Body Mass Index 22.73 09/14/2024 10:40 AM RESEARCH GEOLOGIST Functional Status Functional Status Response Date of Assess ment Is person deaf or have serious hearing difficult y? Yes 04/17/2024 Is person blind or have serious difficulty seein g? No 04/17/2024 Does person have serious dif ficulty walking/climbing stairs? No 04/17/2024 Does person have difficulty dressing/bathing? No 04/17/2024 Does person have difficulty doing errands alone? No 04/17/2024 Cognitive Status Response Date of Assessm ent Does person have difficulty concentrating/remembering/making decisions? No 04/17/2024 Plan of Treatment Upcoming Encounters Date Type Department Care Team (Late st Contact Info) Description 12/19/2024 11:00 AM RESEARCH GEOLOGIST Office Visit [facility] - ENT [address] [place] [phone] Elpidio Scott MD [address] [place] [id number] 12/19/2024 11:30 AM RESEARCH GEOLOGIST Appointment [facility] [address] [place], [place] [phone] Miya Aleman MD [address] [place] [phone] Procedures Procedure Name Priority Date/Time Associated Diagnosis Comments CT NECK SOFT TISSUE W CONT Routine 09/14/2024 10:35 AM RESEARCH GEOLOGIST Oral cancer (HCC) CT CHEST W CONTRAST Routine 09/14/2024 1 0:34 AM RESEARCH GEOLOGIST Mass of lip CREATININE - POCT INTERFACED Routine 09/14/2024 10:14 AM RESEARCH GEOLOGIST from Last 3 Months Results * CT Neck Soft Tissue W Cont (09/14/2024 10:35 AM RESEARCH GEOLOGIST) Anatomical Region Laterality Modality Head Computed Tomogra phy 09/14/2024 10:5 3 AM RESEARCH GEOLOGIST Impressions 09/14/2024 11:05 AM RESEARCH GEOLOGIST IMPRESSION: 1. Postoperative changes of interval resection of a heterogeneously enhancing ulcerated mass in the left lower lip and bilateral neck lymph node dissection. No definite masslike enhancement in the surgical bed to suggest residual or recurrent tumor. 2. Post radiation changes in the neck. > Interpreting Provider: Eloy Benton MD on 09/14/2024 11:05 AM Narrative 09/14/2024 11:05 AM RESEARCH GEOLOGIST PROCEDURE: CT NECK SOFT TISSUE W CONT, DATE/TIME OF EXAM: 09/14/2024 10:35 AM, LOCATION [facility] INDICATION: C06.9: Oral cancer (HCC) ADDITIONAL CLINICAL [...] DATE/TIME OF EXAM: 09/14/2024 10:35 AM, LOCATION [facility] INDICATION: C06.9: Oral cancer (HCC) ADDITIONAL CLINICAL [...] CT CHEST W CONTRAST (09/14/2024 10:34 AM RESEARCH GEOLOGIST) Anatomical Region Laterality Modality Chest Computed Tomogra phy 09/14/2024 11:2 5 AM RESEARCH GEOLOGIST Impressions 09/14/2024 2:56 PM RESEARCH GEOLOGIST Impression: 1.No evidence of metastatic disease in the chest. > Dictated by Nikos Johnson MD, (Phlebotomy Lab Assistant). I, Carlitos Felipe have personally reviewed and interpreted this examination/study. > Interpreting Provider: Carlitos Felipe on 09/14/2024 2:56 PM Narrative 09/14/2024 2:56 PM RESEARCH GEOLOGIST PROCEDURE: CT CHEST W CONTRAST, DATE/TIME OF EXAM: 09/14/2024 10:34 AM, LOCATION [facility] INDICATION: K13.0: Mass of lip ADDITIONAL CLINICAL [...] CONTRAST, DATE/TIME OF EXAM: 09/14/2024 10:34AM, LOCATION [facility] INDICATION: K13.0: Mass of lip ADDITIONAL CLINICAL [...] chest. > Dictated by Nikos Johnson MD, (Phlebotomy Lab Assistant). I, Carlitos Felipe have personally reviewed and interpreted this examination/study. > Interpreting Provider: Carlitos Felipe on 09/14/2024 2:56 PM Elpidio Scott MD CT ORDERABLES * (ABNORMAL) CREATININE - POCT INTERFACED (09/14/2024 10:14 AM RESEARCH GEOLOGIST) Creatinine POCT 1.35(H) 0.30 - 1.30 mg/dL 09/14/2024 10:15 AM [facility] eGFR 52(L) >=90 mL/min/1.7 3 m2 09/14/2024 10:15 AM [facility] Blood BLOOD SPECIMEN / Unknown 09/14/2024 10:14 AM RESEARCH GEOLOGIST 09/14/2024 10:15 AM RESEARCH GEOLOGIST Elpidio Scott MD LAB - POINT OF CARE ORDERABLES [facility] [address] [place] [address], [place] [phone] from Last 3 Months Advance Directives * Full Code (Latest Code Status on File) Date Activated Date Inactivated Comments 02/27/2024 3:40 PM 03/25/2024 5:05 PM Care Teams Programmer Numerical Control Relationship Specialty Start Date End Date Chhaya Thornton APRN-LA NENA [address] [place] [phone] PCP - General Nurse Practitioner Adult Health 02/10/24
--- OUTSIDE RECORDS SUMMARY | 2024-12-05 13:08 | XMS_ITS | Patient Health Summary ---
Author Organization [facility] Address [address] [place] [address] Care Team Providers Care Bodily Injury Adjuster Name Role Phone Chhaya Thornton MELANIA-SENIOR MANAGER ASSET PROTECTION Primary Care Provider [phone] Note from [facility],non-owned Affiliates and Associated Physician Practices is amultiple site organization consisting of ambulatory clinics and hospital sitesin [place], [place], [place] and [place]. This disclosure is being madepursuant to the Care Everywhere program and may not contain all information available regarding this patient. Last updated 18.[facility] Allergies * Honey(Swelling) Medications * Be aware that medications may not be up to date on this document. Alwaysverify current medications with the patient. * acarbose (Precose) 50 MG tablet(Started 01/12/2024) Take 1 (one) tablet by mouth 3 times daily * glimepiride (Amaryl) 2 MG tablet(Started 01/02/2024) Take 1 (one) tablet by mouth 2 times daily with morning and evening meal * levothyroxine (Synthroid) 125 MCG tablet(Started 01/01/2024) Take 1 (one) tablet by mouth once daily * olmesartan (Benicar) 20 MG tablet(Started 01/02/2024) Take 1 (one) tablet by mouth once daily * Ozempic, 1 MG/DOSE, 4 MG/3ML pen(Started 11/11/2023) Inject 1 (one) mg subcutaneously every 7 days * simvastatin (Zocor) 40 MG tablet(Started 01/01/2024) Take 1 (one) tablet by mouth once daily * lidocaine viscous (Xylocaine) 2 % solution(Started 05/21/2024) Swish and swallow 15 mL every 3 hours as needed for Sore Throat or Pain 5 refills by 05/21/2025 * acetaminophen CR (Tylenol Arthritis Pain) 650 MG tablet Take 1 (one) tablet by mouth 2 times daily * benzocaine-menthol (Chloraseptic) 6-10 MG lozenge Take by mouth as needed for Sore Throat Active Problems Problem Noted Date Diagnosed Date 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 (FLUAD QUADRIVALENT; 65Y+) (AIIV4)(Given 08/20/2023, 08/09/2022, 08/21/2021, 08/07/2020) * INFLUENZA VACCINE, ADJUVANTED, TRIV. (FLUAD TRIVALENT; 65Y+) (AIIV3)(Given 11/17/2018) * INFLUENZA VACCINE, HIGH-DOSE, TRIV. (FLUZONE HIGH-DOSE TRIVALENT; 65Y+) (HD-IIV3)(Given 08/17/2024, 09/03/2019, 08/17/2018, 08/01/2017, 09/28/2016) * PNEUMOCOCCAL PPV VACCINE(Given 11/29/2011, 06/29/2007) * Pneumococcal Pcv13 Conj(Given 09/03/2019) Social History Tobacco Use Types Packs/Day Years [...] Recorded Patient Health Questionnaire-2 Score 0 03/30/2024 [facility] - Occupational Stress [...] place to sleep or slept in a snf (including now)? Patient unable to answer 02/27/2024 Sex and Gender Information Value Date Recorded Sex Assigned at Not on file Gender Identity Not on file Sexual Orientation Not on file Last Filed Vital Signs Vital Sign Reading Time Taken Comments Blood Pressure 113/58 09/14/2024 12:07 PM CEREAL SUPERVISOR Pulse 73 09/14/2024 12:07 PM CEREAL SUPERVISOR Temperature 36.2 C (97.2 F) 09/14/2024 12:07 PM CEREAL SUPERVISOR Respiratory Rate 18 09/14/2024 12:07 PM CEREAL SUPERVISOR Oxygen Saturation 100% 09/14/2024 12:07 PM CEREAL SUPERVISOR Inhaled Oxygen Concentration 21% 03/12/2024 4 :29 PM CDT Weight 71.8 kg (158 lb 6.4 oz) 09/14/2024 12:07 PM CEREAL SUPERVISOR Height 177.8 cm (5' 10 ) 09/14/2024 10:40 AM CEREAL SUPERVISOR Body Mass Index 22.73 09/14/2024 10:40 AM CEREAL SUPERVISOR Procedures * CT NECK SOFT TISSUE W CONT(Performed 09/14/2024) Performed for Oral cancer (HCC) * CT CHEST W CONTRAST(Performed 09/14/2024) Performed for Mass of lip * CREATININE - POCT INTERFACED(Performed 09/14/2024) * CALCIUM IONIZED WHOLE BLOOD(Performed 06/13/2024) Performed for Inadequate dietary energy intake, Weight loss, unintentional, Moderate protein-calorie malnutrition (HCC) * PHOSPHORUS BLOOD(Performed 06/13/2024) Performed for Inadequate dietary energy intake, Weight loss, unintentional, Moderate protein-calorie malnutrition (HCC) * MAGNESIUM BLOOD(Performed 06/13/2024) Performed for Inadequate dietary energy intake, Weight loss, unintentional, Moderate protein-calorie malnutrition (HCC) * COMPREHENSIVE METABOLIC PANEL(Performed 06/13/2024) Performed for Inadequate dietary energy intake, Weight loss, unintentional, Moderate protein-calorie malnutrition (HCC) * CBC W AUTO DIFFERENTIAL(Performed 06/13/2024) Performed for Inadequate dietary energy intake, Weight loss, unintentional, Moderate protein-calorie malnutrition (HCC) * RAD ONC ARIA SESSION SUMMARY(Performed 06/13/2024) * RAD ONC ARIA SESSION SUMMARY(Performed 06/12/2024) * RAD ONC ARIA SESSION SUMMARY(Performed 06/11/2024) * RAD ONC ARIA SESSION SUMMARY(Performed 06/08/2024) * RAD ONC ARIA SESSION SUMMARY(Performed 06/07/2024) * RAD ONC ARIA SESSION SUMMARY(Performed 06/06/2024) * RAD ONC ARIA SESSION SUMMARY(Performed 06/05/2024) * RAD ONC ARIA SESSION SUMMARY(Performed 06/04/2024) * RAD ONC ARIA SESSION SUMMARY(Performed 06/01/2024) * RAD ONC ARIA SESSION SUMMARY(Performed 05/31/2024) * RAD ONC ARIA SESSION SUMMARY(Performed 05/30/2024) * RAD ONC ARIA SESSION SUMMARY(Performed 05/29/2024) * RAD ONC ARIA SESSION SUMMARY(Performed 05/28/2024) * RAD ONC ARIA SESSION SUMMARY(Performed 05/25/2024) * RAD ONC ARIA SESSION SUMMARY(Performed 05/24/2024) * RAD ONC ARIA SESSION SUMMARY(Performed 05/23/2024) * RAD ONC ARIA SESSION SUMMARY(Performed 05/22/2024) * RAD ONC ARIA SESSION SUMMARY(Performed 05/21/2024) * RAD ONC ARIA SESSION SUMMARY(Performed 05/18/2024) * RAD ONC ARIA SESSION SUMMARY(Performed 05/17/2024) * RAD ONC ARIA SESSION SUMMARY(Performed 05/16/2024) * RAD ONC ARIA SESSION SUMMARY(Performed 05/15/2024) * RAD ONC ARIA SESSION SUMMARY(Performed 05/14/2024) * RAD ONC ARIA SESSION SUMMARY(Performed 05/11/2024) * RAD ONC ARIA SESSION SUMMARY(Performed 05/10/2024) * RAD ONC ARIA SESSION SUMMARY(Performed 05/09/2024) * RAD ONC ARIA SESSION SUMMARY(Performed 05/08/2024) * RAD ONC ARIA SESSION SUMMARY(Performed 05/07/2024) * RAD ONC ARIA SESSION SUMMARY(Performed 05/04/2024) * RAD ONC ARIA SESSION SUMMARY(Performed 05/03/2024) * GLUCOSE - POINT OF CARE(Performed 04/17/2024) * ENDOTRACHEAL TUBE NOTE(Performed 04/17/2024) * CT DENTAL SURGERY PROCEDURE(Performed 04/17/2024) Performed for Squamous cell carcinoma, lip * GLUCOSE - POINT OF CARE(Performed 04/17/2024) * XR PANOREX(Performed 04/11/2024) Performed for Squamous cell carcinoma, lip * GLUCOSE - POINT OF CARE(Performed 03/25/2024) * GLUCOSE - POINT OF CARE(Performed 03/25/2024) * CBC W AUTO DIFFERENTIAL(Performed 03/25/2024) * GLUCOSE - POINT OF CARE(Performed 03/25/2024) * GLUCOSE - POINT OF CARE(Performed 03/24/2024) * GLUCOSE - POINT OF CARE(Performed 03/24/2024) * GLUCOSE - POINT OF CARE(Performed 03/24/2024) * GLUCOSE - POINT OF CARE(Performed 03/24/2024) * CBC W AUTO DIFFERENTIAL(Performed 03/24/2024) * GLUCOSE - POINT OF CARE(Performed 03/23/2024) * GLUCOSE - POINT OF CARE(Performed 03/23/2024) * GLUCOSE - POINT OF CARE(Performed 03/23/2024) * GLUCOSE - POINT OF CARE(Performed 03/23/2024) * GLUCOSE - POINT OF CARE(Performed 03/23/2024) * GLUCOSE - POINT OF CARE(Performed 03/23/2024) * CBC W AUTO DIFFERENTIAL(Performed 03/23/2024) * PHOSPHORUS BLOOD(Performed 03/23/2024) 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 * MAGNESIUM BLOOD(Performed 03/23/2024) 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 * BASIC METABOLIC PANEL (CALCIUM TOTAL)(Performed 03/23/2024) 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 * GLUCOSE - POINT OF CARE(Performed 03/23/2024) * GLUCOSE - POINT OF CARE(Performed 03/22/2024) * GLUCOSE - POINT OF CARE(Performed 03/22/2024) * GLUCOSE - POINT OF CARE(Performed 03/22/2024) * GLUCOSE - POINT OF CARE(Performed 03/22/2024) * CBC W AUTO DIFFERENTIAL(Performed 03/22/2024) * PHOSPHORUS BLOOD(Performed 03/22/2024) 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 * MAGNESIUM BLOOD(Performed 03/22/2024) 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 * BASIC METABOLIC PANEL (CALCIUM TOTAL)(Performed 03/22/2024) 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 * GLUCOSE - POINT OF CARE(Performed 03/22/2024) * GLUCOSE - POINT OF CARE(Performed 03/21/2024) * GLUCOSE - POINT OF CARE(Performed 03/21/2024) * GLUCOSE - POINT OF CARE(Performed 03/21/2024) * GLUCOSE - POINT OF CARE(Performed 03/21/2024) * GLUCOSE - POINT OF CARE(Performed 03/21/2024) * CBC W AUTO DIFFERENTIAL(Performed 03/21/2024) * PHOSPHORUS BLOOD(Performed 03/21/2024) 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 * MAGNESIUM BLOOD(Performed 03/21/2024) 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 * BASIC METABOLIC PANEL (CALCIUM TOTAL)(Performed 03/21/2024) 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 * GLUCOSE - POINT OF CARE(Performed 03/21/2024) * GLUCOSE - POINT OF CARE(Performed 03/20/2024) * GLUCOSE - POINT OF CARE(Performed 03/20/2024) * GLUCOSE - POINT OF CARE(Performed 03/20/2024) * GLUCOSE - POINT OF CARE(Performed 03/20/2024) * GLUCOSE - POINT OF CARE(Performed 03/20/2024) * CBC W AUTO DIFFERENTIAL(Performed 03/20/2024) * PHOSPHORUS BLOOD(Performed 03/20/2024) 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 * MAGNESIUM BLOOD(Performed 03/20/2024) 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 * BASIC METABOLIC PANEL (CALCIUM TOTAL)(Performed 03/20/2024) 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 * GLUCOSE - POINT OF CARE(Performed 03/20/2024) * GLUCOSE - POINT OF CARE(Performed 03/20/2024) * GLUCOSE - POINT OF CARE(Performed 03/19/2024) * GLUCOSE - POINT OF CARE(Performed 03/19/2024) * GLUCOSE - POINT OF CARE(Performed 03/19/2024) * CBC W AUTO DIFFERENTIAL(Performed 03/19/2024) * PHOSPHORUS BLOOD(Performed 03/19/2024) 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 * MAGNESIUM BLOOD(Performed 03/19/2024) 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 * BASIC METABOLIC PANEL (CALCIUM TOTAL)(Performed 03/19/2024) 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 * GLUCOSE - POINT OF CARE(Performed 03/19/2024) * GLUCOSE - POINT OF CARE(Performed 03/19/2024) * GLUCOSE - POINT OF CARE(Performed 03/19/2024) * GLUCOSE - POINT OF CARE(Performed 03/19/2024) * GLUCOSE - POINT OF CARE(Performed 03/18/2024) * GLUCOSE - POINT OF CARE(Performed 03/18/2024) * GLUCOSE - POINT OF CARE(Performed 03/18/2024) * GLUCOSE - POINT OF CARE(Performed 03/18/2024) * CBC W AUTO DIFFERENTIAL(Performed 03/18/2024) * PHOSPHORUS BLOOD(Performed 03/18/2024) 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 * MAGNESIUM BLOOD(Performed 03/18/2024) 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 * BASIC METABOLIC PANEL (CALCIUM TOTAL)(Performed 03/18/2024) 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 * GLUCOSE - POINT OF CARE(Performed 03/18/2024) * GLUCOSE - POINT OF CARE(Performed 03/18/2024) * GLUCOSE - POINT OF CARE(Performed 03/17/2024) * GLUCOSE - POINT OF CARE(Performed 03/17/2024) * GLUCOSE - POINT OF CARE(Performed 03/17/2024) * GLUCOSE - POINT OF CARE(Performed 03/17/2024) * CBC W AUTO DIFFERENTIAL(Performed 03/17/2024) * PHOSPHORUS BLOOD(Performed 03/17/2024) 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 * MAGNESIUM BLOOD(Performed 03/17/2024) 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 * BASIC METABOLIC PANEL (CALCIUM TOTAL)(Performed 03/17/2024) 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 * GLUCOSE - POINT OF CARE(Performed 03/17/2024) * GLUCOSE - POINT OF CARE(Performed 03/16/2024) * GLUCOSE - POINT OF CARE(Performed 03/16/2024) * GLUCOSE - POINT OF CARE(Performed 03/16/2024) * GLUCOSE - POINT OF CARE(Performed 03/16/2024) * GLUCOSE - POINT OF CARE(Performed 03/16/2024) * GLUCOSE - POINT OF CARE(Performed 03/16/2024) * CBC W AUTO DIFFERENTIAL(Performed 03/16/2024) * PHOSPHORUS BLOOD(Performed 03/16/2024) 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 * MAGNESIUM BLOOD(Performed 03/16/2024) 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 * BASIC METABOLIC PANEL (CALCIUM TOTAL)(Performed 03/16/2024) 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 * GLUCOSE - POINT OF CARE(Performed 03/15/2024) * GLUCOSE - POINT OF CARE(Performed 03/15/2024) * GLUCOSE - POINT OF CARE(Performed 03/15/2024) * GLUCOSE - POINT OF CARE(Performed 03/15/2024) * GLUCOSE - POINT OF CARE(Performed 03/15/2024) * GLUCOSE - POINT OF CARE(Performed 03/15/2024) * GLUCOSE - POINT OF CARE(Performed 03/15/2024) * GLUCOSE - POINT OF CARE(Performed 03/15/2024) * CBC W AUTO DIFFERENTIAL(Performed 03/15/2024) * PHOSPHORUS BLOOD(Performed 03/15/2024) 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 * MAGNESIUM BLOOD(Performed 03/15/2024) 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 * BASIC METABOLIC PANEL (CALCIUM TOTAL)(Performed 03/15/2024) 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 * GLUCOSE - POINT OF CARE(Performed 03/15/2024) * GLUCOSE - POINT OF CARE(Performed 03/14/2024) * GLUCOSE - POINT OF CARE(Performed 03/14/2024) * GLUCOSE - POINT OF CARE(Performed 03/14/2024) * GLUCOSE - POINT OF CARE(Performed 03/14/2024) * ENDOTRACHEAL TUBE NOTE(Performed 03/14/2024) * CT EXPLORE WOUND,NECK(Performed 03/14/2024) Performed for Failed flap * GLUCOSE - POINT OF CARE(Performed 03/14/2024) * GLUCOSE - POINT OF CARE(Performed 03/14/2024) * CBC W AUTO DIFFERENTIAL(Performed 03/14/2024) * PHOSPHORUS BLOOD(Performed 03/14/2024) 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 * MAGNESIUM BLOOD(Performed 03/14/2024) 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 * BASIC METABOLIC PANEL (CALCIUM TOTAL)(Performed 03/14/2024) 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 * GLUCOSE - POINT OF CARE(Performed 03/14/2024) * GLUCOSE - POINT OF CARE(Performed 03/13/2024) * GLUCOSE - POINT OF CARE(Performed 03/13/2024) * GLUCOSE - POINT OF CARE(Performed 03/13/2024) * GLUCOSE - POINT OF CARE(Performed 03/13/2024) * CBC W AUTO DIFFERENTIAL(Performed 03/13/2024) * TYPE + SCREEN PANEL(Performed 03/13/2024) 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 * PHOSPHORUS BLOOD(Performed 03/13/2024) 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 * MAGNESIUM BLOOD(Performed 03/13/2024) 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 * BASIC METABOLIC PANEL (CALCIUM TOTAL)(Performed 03/13/2024) 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 * GLUCOSE - POINT OF CARE(Performed 03/13/2024) * GLUCOSE - POINT OF CARE(Performed 03/13/2024) * GLUCOSE - POINT OF CARE(Performed 03/12/2024) * GLUCOSE - POINT OF CARE(Performed 03/12/2024) * GLUCOSE - POINT OF CARE(Performed 03/12/2024) * GLUCOSE - POINT OF CARE(Performed 03/12/2024) * GLUCOSE - POINT OF CARE(Performed 03/12/2024) * CULTURE FLUID+GRAM STAIN(Performed 03/12/2024) * CBC W/O DIFFERENTIAL(Performed 03/12/2024) * PHOSPHORUS BLOOD(Performed 03/12/2024) 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 * MAGNESIUM BLOOD(Performed 03/12/2024) 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 * BASIC METABOLIC PANEL (CALCIUM TOTAL)(Performed 03/12/2024) 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 * GLUCOSE - POINT OF CARE(Performed 03/12/2024) * GLUCOSE - POINT OF CARE(Performed 03/11/2024) * GLUCOSE - POINT OF CARE(Performed 03/11/2024) * GLUCOSE - POINT OF CARE(Performed 03/11/2024) * GLUCOSE - POINT OF CARE(Performed 03/11/2024) * GLUCOSE - POINT OF CARE(Performed 03/11/2024) * GLUCOSE - POINT OF CARE(Performed 03/11/2024) * PHOSPHORUS BLOOD(Performed 03/11/2024) 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 * MAGNESIUM BLOOD(Performed 03/11/2024) 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 * BASIC METABOLIC PANEL (CALCIUM TOTAL)(Performed 03/11/2024) 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 * GLUCOSE - POINT OF CARE(Performed 03/11/2024) * GLUCOSE - POINT OF CARE(Performed 03/10/2024) * GLUCOSE - POINT OF CARE(Performed 03/10/2024) * GLUCOSE - POINT OF CARE(Performed 03/10/2024) * GLUCOSE - POINT OF CARE(Performed 03/10/2024) * GLUCOSE - POINT OF CARE(Performed 03/10/2024) * PHOSPHORUS BLOOD(Performed 03/10/2024) 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 * MAGNESIUM BLOOD(Performed 03/10/2024) 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 * BASIC METABOLIC PANEL (CALCIUM TOTAL)(Performed 03/10/2024) 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 * GLUCOSE - POINT OF CARE(Performed 03/10/2024) * GLUCOSE - POINT OF CARE(Performed 03/09/2024) * GLUCOSE - POINT OF CARE(Performed 03/09/2024) * PT EVAL AND TREAT(Performed 03/09/2024) * OT EVAL AND TREAT(Performed 03/09/2024) * GLUCOSE - POINT OF CARE(Performed 03/09/2024) * ENDOTRACHEAL TUBE NOTE(Performed 03/09/2024) * CT PLACE GASTROSTOMY TUBE PERC(Performed 03/09/2024) Performed for Dysphagia, unspecified type * GLUCOSE - POINT OF CARE(Performed 03/09/2024) * TYPE + SCREEN PANEL(Performed 03/09/2024) Performed for Lip lesion * PHOSPHORUS BLOOD(Performed 03/09/2024) 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 * MAGNESIUM BLOOD(Performed 03/09/2024) 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 * BASIC METABOLIC PANEL (CALCIUM TOTAL)(Performed 03/09/2024) 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 * GLUCOSE - POINT OF CARE(Performed 03/09/2024) * GLUCOSE - POINT OF CARE(Performed 03/09/2024) * GLUCOSE - POINT OF CARE(Performed 03/09/2024) * GLUCOSE - POINT OF CARE(Performed 03/08/2024) * GLUCOSE - POINT OF CARE(Performed 03/08/2024) * GLUCOSE - POINT OF CARE(Performed 03/08/2024) * GLUCOSE - POINT OF CARE(Performed 03/08/2024) * GLUCOSE - POINT OF CARE(Performed 03/08/2024) * PHOSPHORUS BLOOD(Performed 03/08/2024) 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 * MAGNESIUM BLOOD(Performed 03/08/2024) 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 * CBC W AUTO DIFFERENTIAL(Performed 03/08/2024) 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 * BASIC METABOLIC PANEL (CALCIUM TOTAL)(Performed 03/08/2024) 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 * GLUCOSE - POINT OF CARE(Performed 03/08/2024) * GLUCOSE - POINT OF CARE(Performed 03/08/2024) * GLUCOSE - POINT OF CARE(Performed 03/07/2024) * GLUCOSE - POINT OF CARE(Performed 03/07/2024) * GLUCOSE - POINT OF CARE(Performed 03/07/2024) * GLUCOSE - POINT OF CARE(Performed 03/07/2024) * GLUCOSE - POINT OF CARE(Performed 03/07/2024) * FL SWALLOWING FUNCTION STUDY(Performed 03/07/2024) 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 * GLUCOSE - POINT OF CARE(Performed 03/07/2024) * GLUCOSE - POINT OF CARE(Performed 03/07/2024) * GLUCOSE - POINT OF CARE(Performed 03/07/2024) * GLUCOSE - POINT OF CARE(Performed 03/07/2024) * PHOSPHORUS BLOOD(Performed 03/06/2024) 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 * MAGNESIUM BLOOD(Performed 03/06/2024) 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 * CBC W AUTO DIFFERENTIAL(Performed 03/06/2024) 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 * BASIC METABOLIC PANEL (CALCIUM TOTAL)(Performed 03/06/2024) 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 * GLUCOSE - POINT OF CARE(Performed 03/06/2024) * GLUCOSE - POINT OF CARE(Performed 03/06/2024) * GLUCOSE - POINT OF CARE(Performed 03/06/2024) * GLUCOSE - POINT OF CARE(Performed 03/06/2024) * XR CHEST 1VW PORTABLE(Performed 03/06/2024) 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 * URINALYSIS REFLEX TO MICROSCOPIC NO CULTURE(Performed 03/06/2024) 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 * GLUCOSE - POINT OF CARE(Performed 03/06/2024) * BASIC METABOLIC PANEL (CALCIUM TOTAL)(Performed 03/06/2024) 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 * DIFFERENTIAL MANUAL(Performed 03/05/2024) 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 * PHOSPHORUS BLOOD(Performed 03/05/2024) 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 * MAGNESIUM BLOOD(Performed 03/05/2024) 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 * CBC W AUTO DIFFERENTIAL(Performed 03/05/2024) 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 * BASIC METABOLIC PANEL (CALCIUM TOTAL)(Performed 03/05/2024) 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 * GLUCOSE - POINT OF CARE(Performed 03/05/2024) * GLUCOSE - POINT OF CARE(Performed 03/05/2024) * BASIC METABOLIC PANEL (CALCIUM TOTAL)(Performed 03/05/2024) 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 * GLUCOSE - POINT OF CARE(Performed 03/05/2024) * GLUCOSE - POINT OF CARE(Performed 03/05/2024) * GLUCOSE - POINT OF CARE(Performed 03/05/2024) * BASIC METABOLIC PANEL (CALCIUM TOTAL)(Performed 03/05/2024) 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 * GLUCOSE - POINT OF CARE(Performed 03/05/2024) * DIFFERENTIAL MANUAL(Performed 03/05/2024) 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 * BLOOD GASES ART + COOX PANEL(Performed 03/05/2024) 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 * PHOSPHORUS BLOOD(Performed 03/05/2024) 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 * MAGNESIUM BLOOD(Performed 03/05/2024) 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 * CBC W AUTO DIFFERENTIAL(Performed 03/05/2024) 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 * BASIC METABOLIC PANEL (CALCIUM TOTAL)(Performed 03/05/2024) 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 * GLUCOSE - POINT OF CARE(Performed 03/05/2024) * POTASSIUM WHOLE BLD(Performed 03/04/2024) 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 * GLUCOSE - POINT OF CARE(Performed 03/04/2024) * GLUCOSE - POINT OF CARE(Performed 03/04/2024) * POTASSIUM WHOLE BLD(Performed 03/04/2024) 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 * XR CHEST 1VW PORTABLE(Performed 03/04/2024) 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 * GLUCOSE - POINT OF CARE(Performed 03/04/2024) * POTASSIUM WHOLE BLD(Performed 03/04/2024) 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 * GLUCOSE - POINT OF CARE(Performed 03/04/2024) * BASIC METABOLIC PANEL (CALCIUM TOTAL)(Performed 03/04/2024) 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 * GLUCOSE - POINT OF CARE(Performed 03/04/2024) * BLOOD GASES ART + COOX PANEL(Performed 03/04/2024) 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 * PHOSPHORUS BLOOD(Performed 03/04/2024) 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 * MAGNESIUM BLOOD(Performed 03/04/2024) 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 * CBC W AUTO DIFFERENTIAL(Performed 03/04/2024) 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 * BASIC METABOLIC PANEL (CALCIUM TOTAL)(Performed 03/04/2024) 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 * GLUCOSE - POINT OF CARE(Performed 03/03/2024) * GLUCOSE - POINT OF CARE(Performed 03/03/2024) * GLUCOSE - POINT OF CARE(Performed 03/03/2024) * GLUCOSE - POINT OF CARE(Performed 03/03/2024) * XR CHEST 1VW PORTABLE(Performed 03/03/2024) 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 * GLUCOSE - POINT OF CARE(Performed 03/03/2024) * GLUCOSE - POINT OF CARE(Performed 03/03/2024) * GLUCOSE - POINT OF CARE(Performed 03/03/2024) * GLUCOSE - POINT OF CARE(Performed 03/03/2024) * GLUCOSE - POINT OF CARE(Performed 03/03/2024) * GLUCOSE - POINT OF CARE(Performed 03/03/2024) * GLUCOSE - POINT OF CARE(Performed 03/03/2024) * GLUCOSE - POINT OF CARE(Performed 03/03/2024) * GLUCOSE - POINT OF CARE(Performed 03/03/2024) * BLOOD GASES ART + COOX PANEL(Performed 03/03/2024) 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 * PHOSPHORUS BLOOD(Performed 03/03/2024) 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 * MAGNESIUM BLOOD(Performed 03/03/2024) 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 * CBC W AUTO DIFFERENTIAL(Performed 03/03/2024) 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 * BASIC METABOLIC PANEL (CALCIUM TOTAL)(Performed 03/03/2024) 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 * GLUCOSE - POINT OF CARE(Performed 03/03/2024) * GLUCOSE - POINT OF CARE(Performed 03/02/2024) * GLUCOSE - POINT OF CARE(Performed 03/02/2024) * GLUCOSE - POINT OF CARE(Performed 03/02/2024) * GLUCOSE - POINT OF CARE(Performed 03/02/2024) * GLUCOSE - POINT OF CARE(Performed 03/02/2024) * GLUCOSE - POINT OF CARE(Performed 03/02/2024) * GLUCOSE - POINT OF CARE(Performed 03/02/2024) * GLUCOSE - POINT OF CARE(Performed 03/02/2024) * GLUCOSE - POINT OF CARE(Performed 03/02/2024) * GLUCOSE - POINT OF CARE(Performed 03/02/2024) * GLUCOSE - POINT OF CARE(Performed 03/02/2024) * BLOOD GASES ART + COOX PANEL(Performed 03/02/2024) 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 * XR CHEST 1VW PORTABLE(Performed 03/02/2024) 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 * GLUCOSE - POINT OF CARE(Performed 03/02/2024) * GLUCOSE - POINT OF CARE(Performed 03/02/2024) * GLUCOSE - POINT OF CARE(Performed 03/02/2024) * GLUCOSE - POINT OF CARE(Performed 03/02/2024) * PREPARE RBC LEUKOREDUCED UNIT(Performed 03/02/2024) * PREPARE RBC LEUKOREDUCED UNIT(Performed 03/02/2024) 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 * PREPARE RBC LEUKOREDUCED UNIT(Performed 03/02/2024) * BLOOD GASES ART + COOX PANEL(Performed 03/01/2024) 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 * PHOSPHORUS BLOOD(Performed 03/01/2024) 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 * MAGNESIUM BLOOD(Performed 03/01/2024) 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 * CBC W AUTO DIFFERENTIAL(Performed 03/01/2024) 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 * BASIC METABOLIC PANEL (CALCIUM TOTAL)(Performed 03/01/2024) 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 * GLUCOSE - POINT OF CARE(Performed 03/01/2024) * GLUCOSE - POINT OF CARE(Performed 03/01/2024) * GLUCOSE - POINT OF CARE(Performed 03/01/2024) * BLOOD GASES ART + COOX PANEL(Performed 03/01/2024) 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 * GLUCOSE - POINT OF CARE(Performed 03/01/2024) * XR CHEST 1VW PORTABLE(Performed 03/01/2024) 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 * GLUCOSE - POINT OF CARE(Performed 03/01/2024) * BLOOD GASES ART + COOX PANEL(Performed 03/01/2024) 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 * GLUCOSE - POINT OF CARE(Performed 03/01/2024) * BLOOD GASES ART + COOX PANEL(Performed 03/01/2024) 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 * PHOSPHORUS BLOOD(Performed 03/01/2024) 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 * MAGNESIUM BLOOD(Performed 03/01/2024) 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 * CBC W AUTO DIFFERENTIAL(Performed 03/01/2024) 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 * BASIC METABOLIC PANEL (CALCIUM TOTAL)(Performed 03/01/2024) 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 * GLUCOSE - POINT OF CARE(Performed 03/01/2024) * GLUCOSE - POINT OF CARE(Performed 02/29/2024) * BLOOD GASES ART + COOX PANEL(Performed 02/29/2024) 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 * GLUCOSE - POINT OF CARE(Performed 02/29/2024) * BLOOD GASES ART + COOX PANEL(Performed 02/29/2024) 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 * GLUCOSE - POINT OF CARE(Performed 02/29/2024) * GLUCOSE - POINT OF CARE(Performed 02/29/2024) * BLOOD GASES ART + COOX PANEL(Performed 02/29/2024) 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 * GLUCOSE - POINT OF CARE(Performed 02/29/2024) * GLUCOSE - POINT OF CARE(Performed 02/29/2024) * XR CHEST 1VW PORTABLE(Performed 02/29/2024) 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 * BLOOD GASES ART + COOX PANEL(Performed 02/28/2024) 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 * TSH REFLEX FREE T4(Performed 02/28/2024) 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 * PHOSPHORUS BLOOD(Performed 02/28/2024) 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 * MAGNESIUM BLOOD(Performed 02/28/2024) 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 * CBC W AUTO DIFFERENTIAL(Performed 02/28/2024) 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 * BASIC METABOLIC PANEL (CALCIUM TOTAL)(Performed 02/28/2024) 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 * GLUCOSE - POINT OF CARE(Performed 02/28/2024) * GLUCOSE - POINT OF CARE(Performed 02/28/2024) * XR CHEST 1VW PORTABLE(Performed 02/28/2024) 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 * BLOOD GASES ART + COOX PANEL(Performed 02/28/2024) 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 * PT EVAL AND TREAT(Performed 02/28/2024) * EXTUBATION(Performed 02/28/2024) * GLUCOSE - POINT OF CARE(Performed 02/28/2024) * OT EVAL AND TREAT(Performed 02/28/2024) * XR CHEST 1VW PORTABLE(Performed 02/28/2024) 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 * VENTILATOR LIBERATION TRIAL PROTOCOL(Performed 02/28/2024) * MECHANICAL VENTILATION(Performed 02/28/2024) * GLUCOSE - POINT OF CARE(Performed 02/28/2024) * BLOOD GASES ART + COOX PANEL(Performed 02/28/2024) 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 * ENDOTRACHEAL TUBE NOTE(Performed 02/28/2024) * CT NECK/CHEST PROCEDURE UNLISTED(Performed 02/28/2024) Performed for Failed flap * BLOOD GASES ART + COOX PANEL(Performed 02/28/2024) 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 * GLUCOSE - POINT OF CARE(Performed 02/28/2024) * PHOSPHORUS BLOOD(Performed 02/27/2024) 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 * MAGNESIUM BLOOD(Performed 02/27/2024) 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 * CBC W AUTO DIFFERENTIAL(Performed 02/27/2024) 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 * BASIC METABOLIC PANEL (CALCIUM TOTAL)(Performed 02/27/2024) 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 * GLUCOSE - POINT OF CARE(Performed 02/27/2024) * GLUCOSE - POINT OF CARE(Performed 02/27/2024) * XR ABDOMEN KUB PORTABLE(Performed 02/27/2024) 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 * BLOOD GASES ART + COOX PANEL(Performed 02/27/2024) 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 * PHOSPHORUS BLOOD(Performed 02/27/2024) 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 * MAGNESIUM BLOOD(Performed 02/27/2024) 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 * BASIC METABOLIC PANEL (CALCIUM TOTAL)(Performed 02/27/2024) 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 * CBC W/O DIFFERENTIAL(Performed 02/27/2024) 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 * OXYGEN WITH TITRATION PROTOCOL (ADULT)(Performed 02/27/2024) * PT EVAL AND TREAT(Performed 02/27/2024) 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 * OT EVAL AND TREAT(Performed 02/27/2024) 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 * GLUCOSE - POINT OF CARE(Performed 02/27/2024) * BLOOD GAS+COOX+LYTES+METAB ARTERIAL POCT(Performed 02/27/2024) * BLOOD GAS ART+LYTES+METAB+COOX POC NOTIF(Performed 02/27/2024) Performed for Lip lesion * PATHOLOGY TISSUE(Performed 02/27/2024) Performed for Lip lesion * CT FREE SKIN FLAP W MICROVASC ANAST(Performed 02/27/2024) Performed for Lip lesion * ARTERIAL LINE NOTE(Performed 02/27/2024) * PERIPHERAL IV NOTE(Performed 02/27/2024) * ARTERIAL LINE NOTE(Performed 02/27/2024) * ENDOTRACHEAL TUBE NOTE(Performed 02/27/2024) * BLOOD TYPE VERIFICATION(Performed 02/27/2024) * TYPE + SCREEN PANEL(Performed 02/27/2024) Performed for Lip lesion * GLUCOSE - POINT OF CARE(Performed 02/27/2024) * CT BIOPSY OF LIP(Performed 02/10/2024) Performed for Lip lesion * PATHOLOGY TISSUE(Performed 02/10/2024) Performed for Lip lesion * CT NECK SOFT TISSUE W CONT(Performed 02/10/2024) Performed for Mass of lip * CREATININE - POCT INTERFACED(Performed 02/10/2024) * TRANSFUSE RED BLOOD CELL LEUKOREDUCED UNIT(S) Results * CT Neck Soft Tissue W Cont (09/14/2024 10:35 AM CEREAL SUPERVISOR) Only the most recent of2 resultswithin the time period is included. Anatomical Region Laterality Modality Head Computed Tomogra phy 09/14/2024 10:5 3 AM CEREAL SUPERVISOR Impressions 09/14/2024 11:05 AM CEREAL SUPERVISOR IMPRESSION: 1. Postoperative changes of interval resection of a heterogeneously enhancing ulcerated mass in the left lower lip and bilateral neck lymph node dissection. No definite masslike enhancement in the surgical bed to suggest residual or recurrent tumor. 2. Post radiation changes in the neck. 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 > Dictated by Nikos Johnson MD, (An/Ssn 2 4 Operator). I, Carlitos Felipe have personally reviewed and interpreted this examination/study. > Interpreting Provider: Carlitos Felipe on 09/14/2024 2:56 PM Narrative 09/14/2024 2:56 PM CEREAL SUPERVISOR PROCEDURE: CT CHEST W CONTRAST, DATE/TIME OF EXAM: 09/14/2024 10:34 AM, LOCATION [facility] INDICATION: K13.0: Mass of lip ADDITIONAL CLINICAL [...] CONTRAST, DATE/TIME OF EXAM: 09/14/2024 10:34AM, LOCATION [facility] INDICATION: K13.0: Mass of lip ADDITIONAL CLINICAL [...] chest. > Dictated by Nikos Johnson MD, (An/Ssn 2 4 Operator). I, Carlitos Felipe have personally reviewed and interpreted this examination/study. > Interpreting Provider: Carlitos Felipe on 09/14/2024 2:56 PM Elpidio Scott MD CT ORDERABLES * (ABNORMAL) CREATININE - POCT INTERFACED (09/14/2024 10:14 AM CEREAL SUPERVISOR) Only the most recent of2 resultswithin the time period is included. Pathologist [facility] [place] Creatinine POCT 1.35(H) 0.30 - 1.30 mg/dL 09/14/2024 10:15 AM [facility] eGFR 52(L) >=90 mL/min/1.7 3 m2 09/14/2024 10:15 AM [facility] Blood BLOOD SPECIMEN / Unknown 09/14/2024 10:14 AM CEREAL SUPERVISOR 09/14/2024 10:15 AM [facility] Elpidio Scott MD LAB - POINT OF CARE ORDERABLES Performing Organization Address City/[facility]/ZIP Co de Phone Number [address] [address], [facility] [phone] * (ABNORMAL) CALCIUM IONIZED WHOLE BLOOD (06/13/2024 2:26 PM CDT) [facility] Calcium Ionized 1.31 mmol/L 06/13/2024 2:35 PM CDT [facility] pH 7.31(L) 7.35 - 7.45 pH 06/13/2024 2:35 PM CDT [facility] Ionized Calcium pH Adjusted 1.26 1.19 - 1.34 mmol/L 06/13/2024 2:35 PM CDT [facility] Blood WHOLE BLOOD SPECIMEN / Unknown Lab Venipuncture / Unknown 06/13/2024 2:26 PM CDT 06/13/2024 2:32 PM CDT Miya Aleman MD LAB - CHEMISTRY OR DERABLES [address] [address], [facility] [phone] * (ABNORMAL) CBC W/ DIFFERENTIAL (06/13/2024 2:26 PM CDT) Only the most recent of24 resultswithin the time period is included. [facility] WBC 5.6 4.0 - 10.7 x10E9/L 06/13/2024 2:48 PM CDT [facility] RBC Count 3.51(L) 4.30 - 5.80 x10E12/L 06/13/2024 2:48 PM [facility] Hemoglobin 11.2(L) 13.3 - 17.5 g/dL 06/13/2024 2:48 PM [facility] Hematocrit 34.8(L) 38.7 - 51.1 % 06/13/2024 2:48 PM [facility] MCV 99.1(H) 80.0 - 98.0 fL 06/13/2024 2:48 PM [facility] MCH 31.9 26.7 - 33.6 pg 06/13/2024 2:48 PM [facility] MCHC 32.2 31.7 - 36.3 g/dL 06/13/2024 2:48 PM [facility] RDW-CV 13.6 11.3 - 14.8 % 06/13/2024 2:48 PM [facility] Platelet Count 348 150 - 420 x10E9/L 06/13/2024 2:48 PM [facility] MPV 10.0 7.8 - 11.4 fL 06/13/2024 2:48 PM [facility] Neutrophil % 79.1(H) 41.0 - 74.0 % 06/13/2024 2:48 PM [facility] Lymphocyte % 5.2(L) 17.0 - 47.0 % 06/13/2024 2:48 PM [facility] Monocyte % 10.6 3.0 - 11.0 % 06/13/2024 2:48 PM [facility] Eosinophil % 4.3 0.0 - 7.0 % 06/13/2024 2:48 PM [facility] Basophil % 0.4 0.0 - 1.6 % 06/13/2024 2:48 PM [facility] Immature Granulocytes % 0.4 0.0 - 1.0 % 06/13/2024 2:48 PM [facility] Neutrophil Absolute 4.41 1.60 - 7.50 x10E9/L 06/13/2024 2:48 PM [facility] Lymphocyte Absolute 0.29(L) 1.00 - 4.40 x10E9/L 06/13/2024 2:48 PM [facility] Monocyte Absolute 0.59 0.15 - 1.00 x10E9/L 06/13/2024 2:48 PM [facility] Eosinophil Absolute 0.24 0.00 - 0.60 x10E9/L 06/13/2024 2:48 PM [facility] Basophil Absolute 0.02 0.00 - 0.13 x10E9/L 06/13/2024 2:48 PM [facility] NRBC 0.4(H) <=0.0 /100 WBC 06/13/2024 2:48 PM [facility] Blood BLOOD SPECIMEN / Unknown Lab Venipuncture / Unknown 06/13/2024 2:26 PM CDT 06/13/2024 2:36 PM CDT Miya Aleman MD LAB - HEMATOLOGY O RDERABLES Performing Organization Address [facility] Co de Phone Number [address] [address] [phone] * (ABNORMAL) COMPREHENSIVE METABOLIC PANEL (06/13/2024 2:26 PM CDT) BUN 55(H) 7 - 26 mg/dL 06/13/2024 3:04 PM [facility] Creatinine 1.62(H) 0.71 - 1.16 mg/dL 06/13/2024 3:04 PM [facility] Sodium 138 136 - 145 mmol/L 06/13/2024 3:04 PM [facility] Potassium 4.8(H) 3.5 - 4.5 mmol/L 06/13/2024 3:04 PM [facility] Chloride 103 98 - 107 mmol/L 06/13/2024 3:04 PM [facility] CO2 28 22 - 29 mmol/L 06/13/2024 3:04 PM [facility] Glucose 160(H) 70 - 115 mg/dL 06/13/2024 3:04 PM [facility] Calcium 9.6 8.4 - 10.2 mg/dL 06/13/2024 3:04 PM [facility] Protein Total 7.0 6.0 - 8.3 g/dL 06/13/2024 3:04 PM [facility] Albumin 3.7 3.4 - 5.0 g/dL 06/13/2024 3:04 PM [facility] Bilirubin Total 0.4 0.2 - 1.2 mg/dL 06/13/2024 3:04 PM [facility] Alkaline Phosphatase 65 40 - 150 U/L 06/13/2024 3:04 PM [facility] ALT 33 5 - 55 U/L 06/13/2024 3:04 PM [facility] AST 25 5 - 34 U/L 06/13/2024 3:04 PM [facility] Anion Gap 7 6 - 16 06/13/2024 3:04 PM [facility] BUN/Creatinine Ratio 34(H) 7 - 23 06/13/2024 3:04 PM [facility] Osmolality Calculated 305(H) 275 - 295 mOsm/kg 06/13/2024 3:04 PM [facility] Albumin/Globulin Ratio 1.1 1.1 - 2.3 06/13/2024 3:04 PM [facility] eGFR by CKD-EPI 42(L) >=90 mL/min/1.7 3 m2 06/13/2024 3:04 PM [facility] Blood BLOOD SPECIMEN / Unknown Lab Venipuncture / Unknown 06/13/2024 2:26 PM CDT 06/13/2024 2:36 PM CDT Miya Aleman MD LAB - CHEMISTRY OR DERABLES [facility] [address] [place] [phone], [facility] [phone] * PHOSPHORUS BLOOD (06/13/2024 2:26 PM CDT) Only the most recent of27 resultswithin the time period is included. Phosphorus 5.0 2.8 - 5.1 mg/dL 06/13/2024 3:04 PM [facility] Blood BLOOD SPECIMEN / Unknown Lab Venipuncture / Unknown 06/13/2024 2:26 PM CDT 06/13/2024 2:36 PM CDT Miya Aleman MD LAB - CHEMISTRY OR DERABLES [facility] [address] [place] [address], [facility] [phone] * MAGNESIUM BLOOD (06/13/2024 2:26 PM CDT) Only the most recent of27 resultswithin the time period is included. Magnesium 2.6 1.6 - 2.6 mg/dL 06/13/2024 3:04 PM CDT [facility] Blood BLOOD SPECIMEN / Unknown Lab Venipuncture / Unknown 06/13/2024 2:26 PM CDT 06/13/2024 2:36 PM CDT Miya Aleman MD LAB - CHEMISTRY OR DERABLES [facility] [address] [place] [address], [place] [phone] * Rad Onc Aria Session Summary (06/13/2024 1:23 PM CDT) Course ID C1_OralCav ity RAD ONC TREATMENT Course First Treatment Date 05/03/2024 1:43 PM RAD ONC TREATMENT Reference Point ID [id number] [email or web address] RAD ONC TREATMENT Reference Point Dosage Given to Date 60 Gy RAD ONC TREATMENT Reference Point Session Dosage Given 2 Gy RAD ONC TREATMENT Plan ID #OralCavit yHN RAD ONC TREATMENT Plan Fractions Treated to Date 30 RAD ONC TREATMENT Plan Total Fractions Prescribed 30 RAD ONC TREATMENT Plan Total Prescribed Dose 6000 cGy RAD ONC TREATMENT 06/13/2024 1:23 PM CDT Provider Unknown RADIATION ONCOLOGY O RDERABLES RAD ONC TREATMENT * Rad Onc Aria Session Summary (06/12/2024 1:14 PM CDT) Course ID C1_OralCav ity RAD ONC TREATMENT Course First Treatment Date 05/03/2024 1:43 PM RAD ONC TREATMENT Reference Point ID [id number] [email or web address] RAD ONC TREATMENT Reference Point Dosage Given to Date 58 Gy RAD ONC TREATMENT Reference Point Session Dosage Given 2 Gy RAD ONC TREATMENT Plan ID #OralCavit yHN RAD ONC TREATMENT Plan Fractions Treated to Date 29 RAD ONC TREATMENT Plan Total Fractions Prescribed 30 RAD ONC TREATMENT Plan Total Prescribed Dose 6000 cGy RAD ONC TREATMENT 06/12/2024 1:14 PM CDT Provider Unknown RADIATION ONCOLOGY O RDERABLES Performing Organization Address [facility] de Phone Number RAD ONC TREATMENT * Rad Onc Aria Session Summary (06/11/2024 10:30 AM CDT) Course ID C1_OralCav ity RAD ONC TREATMENT Course First Treatment Date 05/03/2024 1:43 PM RAD ONC TREATMENT Reference Point ID [id number] [email or web address] RAD ONC TREATMENT Reference Point Dosage Given to Date 56 Gy RAD ONC TREATMENT Reference Point Session Dosage Given 2 Gy RAD ONC TREATMENT Plan ID #OralCavit yHN RAD ONC TREATMENT Plan Fractions Treated to Date 28 RAD ONC TREATMENT Plan Total Fractions Prescribed 30 RAD ONC TREATMENT Plan Total Prescribed Dose 6000 cGy RAD ONC TREATMENT 06/11/2024 10:3 0 AM CDT Provider Unknown RADIATION ONCOLOGY O RDERABLES Performing Organization Address City/[facility] de Phone Number RAD ONC TREATMENT * Rad Onc Aria Session Summary (06/08/2024 1:13 PM CDT) Course ID C1_OralCav ity RAD ONC TREATMENT Course First Treatment Date 05/03/2024 1:43 PM RAD ONC TREATMENT Reference Point ID [id number] [email or web address] RAD ONC TREATMENT Reference Point Dosage Given to Date 54 Gy RAD ONC TREATMENT Reference Point Session Dosage Given 2 Gy RAD ONC TREATMENT Plan ID #OralCavit yHN RAD ONC TREATMENT Plan Fractions Treated to Date 27 RAD ONC TREATMENT Plan Total Fractions Prescribed 30 RAD ONC TREATMENT Plan Total Prescribed Dose 6000 cGy RAD ONC TREATMENT 06/08/2024 1:13 PM CDT Provider Unknown RADIATION ONCOLOGY O RDERABLES Performing Organization Address [facility] Phone Number RAD ONC TREATMENT * Rad Onc Aria Session Summary (06/07/2024 1:31 PM CDT) Course ID C1_OralCav ity RAD ONC TREATMENT Course First Treatment Date 05/03/2024 1:43 PM RAD ONC TREATMENT Reference Point ID [id number] [email or web address] RAD ONC TREATMENT Reference Point Dosage Given to Date 52 Gy RAD ONC TREATMENT Reference Point Session Dosage Given 2 Gy RAD ONC TREATMENT Plan ID #OralCavit yHN RAD ONC TREATMENT Plan Fractions Treated to Date 26 RAD ONC TREATMENT Plan Total Fractions Prescribed 30 RAD ONC TREATMENT Plan Total Prescribed Dose 6000 cGy RAD ONC TREATMENT 06/07/2024 1:31 PM CDT Provider Unknown RADIATION ONCOLOGY O RDERABLES Performing Organization Address [facility] Phone Number RAD ONC TREATMENT * Rad Onc Aria Session Summary (06/06/2024 1:23 PM CDT) Course ID C1_OralCav ity RAD ONC TREATMENT Course First Treatment Date 05/03/2024 1:43 PM RAD ONC TREATMENT Reference Point ID [id number] [email or web address] RAD ONC TREATMENT Reference Point Dosage Given to Date 50 Gy RAD ONC TREATMENT Reference Point Session Dosage Given 2 Gy RAD ONC TREATMENT Plan ID #OralCavit yHN RAD ONC TREATMENT Plan Fractions Treated to Date 25 RAD ONC TREATMENT Plan Total Fractions Prescribed 30 RAD ONC TREATMENT Plan Total Prescribed Dose 6000 cGy RAD ONC TREATMENT 06/06/2024 1:23 PM CDT Provider Unknown RADIATION ONCOLOGY O RDERABLES Performing Organization Address [facility] de Phone Number RAD ONC TREATMENT * Rad Onc Aria Session Summary (06/05/2024 2:03 PM CDT) Course ID C1_OralCav ity RAD ONC TREATMENT Course First Treatment Date 05/03/2024 1:43 PM RAD ONC TREATMENT Reference Point ID [id number] [email or web address] RAD ONC TREATMENT Reference Point Dosage Given to Date 48 Gy RAD ONC TREATMENT Reference Point Session Dosage Given 2 Gy RAD ONC TREATMENT Plan ID #OralCavit yHN RAD ONC TREATMENT Plan Fractions Treated to Date 24 RAD ONC TREATMENT Plan Total Fractions Prescribed 30 RAD ONC TREATMENT Plan Total Prescribed Dose 6000 cGy RAD ONC TREATMENT 06/05/2024 2:03 PM CDT Provider Unknown RADIATION ONCOLOGY O RDERABLES Performing Organization Address [facility] de Phone Number RAD ONC TREATMENT * Rad Onc Aria Session Summary (06/04/2024 1:39 PM CDT) Course ID C1_OralCav ity RAD ONC TREATMENT Course First Treatment Date 05/03/2024 1:43 PM RAD ONC TREATMENT Reference Point ID [id number] [email or web address] RAD ONC TREATMENT Reference Point Dosage Given to Date 46 Gy RAD ONC TREATMENT Reference Point Session Dosage Given 2 Gy RAD ONC TREATMENT Plan ID #OralCavit yHN RAD ONC TREATMENT Plan Fractions Treated to Date 23 RAD ONC TREATMENT Plan Total Fractions Prescribed 30 RAD ONC TREATMENT Plan Total Prescribed Dose 6000 cGy RAD ONC TREATMENT 06/04/2024 1:39 PM CDT Provider Unknown RADIATION ONCOLOGY O RDERABLES Performing Organization Address [facility] de Phone Number RAD ONC TREATMENT * Rad Onc Aria Session Summary (06/01/2024 1:22 PM CDT) Course ID C1_OralCav ity RAD ONC TREATMENT Course First Treatment Date 05/03/2024 1:43 PM RAD ONC TREATMENT Reference Point ID [id number] [email or web address] RAD ONC TREATMENT Reference Point Dosage Given to Date 44 Gy RAD ONC TREATMENT Reference Point Session Dosage Given 2 Gy RAD ONC TREATMENT Plan ID #OralCavit yHN RAD ONC TREATMENT Plan Fractions Treated to Date 22 RAD ONC TREATMENT Plan Total Fractions Prescribed 30 RAD ONC TREATMENT Plan Total Prescribed Dose 6000 cGy RAD ONC TREATMENT 06/01/2024 1:22 PM CDT Provider Unknown RADIATION ONCOLOGY O RDERABLES Performing Organization Address City/[facility] Co de Phone Number RAD ONC TREATMENT * Rad Onc Aria Session Summary (05/31/2024 1:40 PM CDT) Course ID C1_OralCav ity RAD ONC TREATMENT Course First Treatment Date 05/03/2024 1:43 PM RAD ONC TREATMENT Reference Point ID [id number] [email or web address] RAD ONC TREATMENT Reference Point Dosage Given to Date 42 Gy RAD ONC TREATMENT Reference Point Session Dosage Given 2 Gy RAD ONC TREATMENT Plan ID #OralCavit yHN RAD ONC TREATMENT Plan Fractions Treated to Date 21 RAD ONC TREATMENT Plan Total Fractions Prescribed 30 RAD ONC TREATMENT Plan Total Prescribed Dose 6000 cGy RAD ONC TREATMENT 05/31/2024 1:40 PM CDT Provider Unknown RADIATION ONCOLOGY O RDERABLES Performing Organization Address [facility] Co de Phone Number RAD ONC TREATMENT * Rad Onc Aria Session Summary (05/30/2024 1:35 PM CDT) Course ID C1_OralCav ity RAD ONC TREATMENT Course First Treatment Date 05/03/2024 1:43 PM RAD ONC TREATMENT Reference Point ID [id number] [email or web address] RAD ONC TREATMENT Reference Point Dosage Given to Date 40 Gy RAD ONC TREATMENT Reference Point Session Dosage Given 2 Gy RAD ONC TREATMENT Plan ID #OralCavit yHN RAD ONC TREATMENT Plan Fractions Treated to Date 20 RAD ONC TREATMENT Plan Total Fractions Prescribed 30 RAD ONC TREATMENT Plan Total Prescribed Dose 6000 cGy RAD ONC TREATMENT 05/30/2024 1:35 PM CDT Provider Unknown RADIATION ONCOLOGY O RDERARADHA RAD ONC TREATMENT * Rad Onc Aria Session Summary (05/29/2024 1:27 PM CDT) Course ID [email or web address]_OralCav ity RAD ONC TREATMENT Course First Treatment Date 05/03/2024 1:43 PM RAD ONC TREATMENT Reference Point ID [id number] [email or web address] RAD ONC TREATMENT Reference Point Dosage Given to Date 38 Gy RAD ONC TREATMENT Reference Point Session Dosage Given 2 Gy RAD ONC TREATMENT Plan ID #OralCavit yHN RAD ONC TREATMENT Plan Fractions Treated to Date 19 RAD ONC TREATMENT Plan Total Fractions Prescribed 30 RAD ONC TREATMENT Plan Total Prescribed Dose 6000 cGy RAD ONC TREATMENT 05/29/2024 1:27 PM CDT Provider Unknown RADIATION ONCOLOGY O RDERABLES Performing Organization Address [facility] Co de Phone Number RAD ONC TREATMENT * Rad Onc Aria Session Summary (05/28/2024 1:26 PM CDT) Course ID C1_OralCav ity RAD ONC TREATMENT Course First Treatment Date 05/03/2024 1:43 PM RAD ONC TREATMENT Reference Point ID [id number] [email or web address] RAD ONC TREATMENT Reference Point Dosage Given to Date 36 Gy RAD ONC TREATMENT Reference Point Session Dosage Given 2 Gy RAD ONC TREATMENT Plan ID #OralCavit yHN RAD ONC TREATMENT Plan Fractions Treated to Date 18 RAD ONC TREATMENT Plan Total Fractions Prescribed 30 RAD ONC TREATMENT Plan Total Prescribed Dose 6000 cGy RAD ONC TREATMENT 05/28/2024 1:26 PM CDT Provider Unknown RADIATION ONCOLOGY O RDERABLES Performing Organization Address [facility] de Phone Number RAD ONC TREATMENT * Rad Onc Aria Session Summary (05/25/2024 1:26 PM CDT) Course ID C1_OralCav ity RAD ONC TREATMENT Course First Treatment Date 05/03/2024 1:43 PM RAD ONC TREATMENT Reference Point ID [id number] [email or web address] RAD ONC TREATMENT Reference Point Dosage Given to Date 34 Gy RAD ONC TREATMENT Reference Point Session Dosage Given 2 Gy RAD ONC TREATMENT Plan ID #OralCavit yHN RAD ONC TREATMENT Plan Fractions Treated to Date 17 RAD ONC TREATMENT Plan Total Fractions Prescribed 30 RAD ONC TREATMENT Plan Total Prescribed Dose 6000 cGy RAD ONC TREATMENT 05/25/2024 1:26 PM CDT Provider Unknown RADIATION ONCOLOGY O RDERABLES RAD ONC TREATMENT * Rad Onc Aria Session Summary (05/24/2024 1:23 PM CDT) Course ID C1_OralCav ity RAD ONC TREATMENT Course First Treatment Date 05/03/2024 1:43 PM RAD ONC TREATMENT Reference Point ID [id number] [email or web address] RAD ONC TREATMENT Reference Point Dosage Given to Date 32 Gy RAD ONC TREATMENT Reference Point Session Dosage Given 2 Gy RAD ONC TREATMENT Plan ID #OralCavit yHN RAD ONC TREATMENT Plan Fractions Treated to Date 16 RAD ONC TREATMENT Plan Total Fractions Prescribed 30 RAD ONC TREATMENT Plan Total Prescribed Dose 6000 cGy RAD ONC TREATMENT 05/24/2024 1:23 PM CDT Provider Unknown RADIATION ONCOLOGY O RDERABLES Performing Organization Address [facility] Co de Phone Number RAD ONC TREATMENT * Rad Onc Aria Session Summary (05/23/2024 1:51 PM CDT) Course ID C1_OralCav ity RAD ONC TREATMENT Course First Treatment Date 05/03/2024 1:43 PM RAD ONC TREATMENT Reference Point ID [id number] [email or web address] RAD ONC TREATMENT Reference Point Dosage Given to Date 30 Gy RAD ONC TREATMENT Reference Point Session Dosage Given 2 Gy RAD ONC TREATMENT Plan ID #OralCavit yHN RAD ONC TREATMENT Plan Fractions Treated to Date 15 RAD ONC TREATMENT Plan Total Fractions Prescribed 30 RAD ONC TREATMENT Plan Total Prescribed Dose 6000 cGy RAD ONC TREATMENT 05/23/2024 1:51 PM CDT Provider Unknown RADIATION ONCOLOGY O RDERABLES Performing Organization Address [facility] Co de Phone Number RAD ONC TREATMENT * Rad Onc Aria Session Summary (05/22/2024 1:32 PM CDT) Course ID C1_OralCav ity RAD ONC TREATMENT Course First Treatment Date 05/03/2024 1:43 PM RAD ONC TREATMENT Reference Point ID [id number] [email or web address] RAD ONC TREATMENT Reference Point Dosage Given to Date 28 Gy RAD ONC TREATMENT Reference Point Session Dosage Given 2 Gy RAD ONC TREATMENT Plan ID #OralCavit yHN RAD ONC TREATMENT Plan Fractions Treated to Date 14 RAD ONC TREATMENT Plan Total Fractions Prescribed 30 RAD ONC TREATMENT Plan Total Prescribed Dose 6000 cGy RAD ONC TREATMENT 05/22/2024 1:32 PM CDT Provider Unknown RADIATION ONCOLOGY O RDERABLES RAD ONC TREATMENT * Rad Onc Aria Session Summary (05/21/2024 1:25 PM CDT) Course ID C1_OralCav ity RAD ONC TREATMENT Course First Treatment Date 05/03/2024 1:43 PM RAD ONC TREATMENT Reference Point ID [id number] [email or web address] RAD ONC TREATMENT Reference Point Dosage Given to Date 26 Gy RAD ONC TREATMENT Reference Point Session Dosage Given 2 Gy RAD ONC TREATMENT Plan ID #OralCavit yHN RAD ONC TREATMENT Plan Fractions Treated to Date 13 RAD ONC TREATMENT Plan Total Fractions Prescribed 30 RAD ONC TREATMENT Plan Total Prescribed Dose 6000 cGy RAD ONC TREATMENT 05/21/2024 1:25 PM CDT Provider Unknown RADIATION ONCOLOGY O RDERABLES Performing Organization Address [facility] Co de Phone Number RAD ONC TREATMENT * Rad Onc Aria Session Summary (05/18/2024 1:40 PM CDT) Course ID C1_OralCav ity RAD ONC TREATMENT Course First Treatment Date 05/03/2024 1:43 PM RAD ONC TREATMENT Reference Point ID [id number] [email or web address] RAD ONC TREATMENT Reference Point Dosage Given to Date 24 Gy RAD ONC TREATMENT Reference Point Session Dosage Given 2 Gy RAD ONC TREATMENT Plan ID #OralCavit yHN RAD ONC TREATMENT Plan Fractions Treated to Date 12 RAD ONC TREATMENT Plan Total Fractions Prescribed 30 RAD ONC TREATMENT Plan Total Prescribed Dose 6000 cGy RAD ONC TREATMENT 05/18/2024 1:40 PM CDT Provider Unknown RADIATION ONCOLOGY O RDERABLES RAD ONC TREATMENT * Rad Onc Aria Session Summary (05/17/2024 1:32 PM CDT) Course ID C1_OralCav ity RAD ONC TREATMENT Course First Treatment Date 05/03/2024 1:43 PM RAD ONC TREATMENT Reference Point ID [id number] [email or web address] RAD ONC TREATMENT Reference Point Dosage Given to Date 22 Gy RAD ONC TREATMENT Reference Point Session Dosage Given 2 Gy RAD ONC TREATMENT Plan ID #OralCavit yHN RAD ONC TREATMENT Plan Fractions Treated to Date 11 RAD ONC TREATMENT Plan Total Fractions Prescribed 30 RAD ONC TREATMENT Plan Total Prescribed Dose 6000 cGy RAD ONC TREATMENT 05/17/2024 1:32 PM CDT Provider Unknown RADIATION ONCOLOGY O RDERABLES Performing Organization Address [facility] Co de Phone Number RAD ONC TREATMENT * Rad Onc Aria Session Summary (05/16/2024 1:21 PM CDT) Course ID C1_OralCav ity RAD ONC TREATMENT Course First Treatment Date 05/03/2024 1:43 PM RAD ONC TREATMENT Reference Point ID [id number] [email or web address] RAD ONC TREATMENT Reference Point Dosage Given to Date 20 Gy RAD ONC TREATMENT Reference Point Session Dosage Given 2 Gy RAD ONC TREATMENT Plan ID #OralCavit yHN RAD ONC TREATMENT Plan Fractions Treated to Date 10 RAD ONC TREATMENT Plan Total Fractions Prescribed 30 RAD ONC TREATMENT Plan Total Prescribed Dose 6000 cGy RAD ONC TREATMENT 05/16/2024 1:21 PM CDT Provider Unknown RADIATION ONCOLOGY O RDERABLES Performing Organization Address [facility] de Phone Number RAD ONC TREATMENT * Rad Onc Aria Session Summary (05/15/2024 1:29 PM CDT) Course ID C1_OralCav ity RAD ONC TREATMENT Course First Treatment Date 05/03/2024 1:43 PM RAD ONC TREATMENT Reference Point ID [id number] [email or web address] RAD ONC TREATMENT Reference Point Dosage Given to Date 18 Gy RAD ONC TREATMENT Reference Point Session Dosage Given 2 Gy RAD ONC TREATMENT Plan ID #OralCavit yHN RAD ONC TREATMENT Plan Fractions Treated to Date 9 RAD ONC TREATMENT Plan Total Fractions Prescribed 30 RAD ONC TREATMENT Plan Total Prescribed Dose 6000 cGy RAD ONC TREATMENT 05/15/2024 1:29 PM CDT Provider Unknown RADIATION ONCOLOGY O RDERABLES RAD ONC TREATMENT * Rad Onc Aria Session Summary (05/14/2024 1:34 PM CDT) Course ID C1_OralCav ity RAD ONC TREATMENT Course First Treatment Date 05/03/2024 1:43 PM RAD ONC TREATMENT Reference Point ID [id number] [email or web address] RAD ONC TREATMENT Reference Point Dosage Given to Date 16 Gy RAD ONC TREATMENT Reference Point Session Dosage Given 2 Gy RAD ONC TREATMENT Plan ID #OralCavit yHN RAD ONC TREATMENT Plan Fractions Treated to Date 8 RAD ONC TREATMENT Plan Total Fractions Prescribed 30 RAD ONC TREATMENT Plan Total Prescribed Dose 6000 cGy RAD ONC TREATMENT 05/14/2024 1:34 PM CDT Provider Unknown RADIATION ONCOLOGY O RDERABLES Performing Organization Address [facility] Phone Number RAD ONC TREATMENT * Rad Onc Aria Session Summary (05/11/2024 12:39 PM CDT) Course ID C1_OralCav ity RAD ONC TREATMENT Course First Treatment Date 05/03/2024 1:43 PM RAD ONC TREATMENT Reference Point ID [id number] [email or web address] RAD ONC TREATMENT Reference Point Dosage Given to Date 14 Gy RAD ONC TREATMENT Reference Point Session Dosage Given 2 Gy RAD ONC TREATMENT Plan ID #OralCavit yHN RAD ONC TREATMENT Plan Fractions Treated to Date 7 RAD ONC TREATMENT Plan Total Fractions Prescribed 30 RAD ONC TREATMENT Plan Total Prescribed Dose 6000 cGy RAD ONC TREATMENT 05/11/2024 12:3 9 PM CDT Provider Unknown RADIATION ONCOLOGY O RDERABLES Performing Organization Address [facility] Co de Phone Number RAD ONC TREATMENT * Rad Onc Aria Session Summary (05/10/2024 1:36 PM CDT) Course ID C1_OralCav ity RAD ONC TREATMENT Course First Treatment Date 05/03/2024 1:43 PM RAD ONC TREATMENT Reference Point ID [id number] [email or web address] RAD ONC TREATMENT Reference Point Dosage Given to Date 12 Gy RAD ONC TREATMENT Reference Point Session Dosage Given 2 Gy RAD ONC TREATMENT Plan ID #OralCavit yHN RAD ONC TREATMENT Plan Fractions Treated to Date 6 RAD ONC TREATMENT Plan Total Fractions Prescribed 30 RAD ONC TREATMENT Plan Total Prescribed Dose 6000 cGy RAD ONC TREATMENT 05/10/2024 1:36 PM CDT Provider Unknown RADIATION ONCOLOGY O RDERABLES Performing Organization Address [facility] Phone Number RAD ONC TREATMENT * Rad Onc Aria Session Summary (05/09/2024 1:26 PM CDT) Course ID C1_OralCav ity RAD ONC TREATMENT Course First Treatment Date 05/03/2024 1:43 PM RAD ONC TREATMENT Reference Point ID [id number] [email or web address] RAD ONC TREATMENT Reference Point Dosage Given to Date 10 Gy RAD ONC TREATMENT Reference Point Session Dosage Given 2 Gy RAD ONC TREATMENT Plan ID #OralCavit yHN RAD ONC TREATMENT Plan Fractions Treated to Date 5 RAD ONC TREATMENT Plan Total Fractions Prescribed 30 RAD ONC TREATMENT Plan Total Prescribed Dose 6000 cGy RAD ONC TREATMENT 05/09/2024 1:26 PM CDT Provider Unknown RADIATION ONCOLOGY O RDERABLES Performing Organization Address [facility] Phone Number RAD ONC TREATMENT * Rad Onc Aria Session Summary (05/08/2024 1:34 PM CDT) Course ID C1_OralCav ity RAD ONC TREATMENT Course First Treatment Date 05/03/2024 1:43 PM RAD ONC TREATMENT Reference Point ID [id number] [email or web address] RAD ONC TREATMENT Reference Point Dosage Given to Date 8 Gy RAD ONC TREATMENT Reference Point Session Dosage Given 2 Gy RAD ONC TREATMENT Plan ID #OralCavit yHN RAD ONC TREATMENT Plan Fractions Treated to Date 4 RAD ONC TREATMENT Plan Total Fractions Prescribed 30 RAD ONC TREATMENT Plan Total Prescribed Dose 6000 cGy RAD ONC TREATMENT 05/08/2024 1:34 PM CDT Provider Unknown RADIATION ONCOLOGY O RDERABLES Performing Organization Address [facility] de Phone Number RAD ONC TREATMENT * Rad Onc Aria Session Summary (05/07/2024 1:48 PM CDT) Course ID C1_OralCav ity RAD ONC TREATMENT Course First Treatment Date 05/03/2024 1:43 PM RAD ONC TREATMENT Reference Point ID [id number] [email or web address] RAD ONC TREATMENT Reference Point Dosage Given to Date 6 Gy RAD ONC TREATMENT Reference Point Session Dosage Given 2 Gy RAD ONC TREATMENT Plan ID #OralCavit yHN RAD ONC TREATMENT Plan Fractions Treated to Date 3 RAD ONC TREATMENT Plan Total Fractions Prescribed 30 RAD ONC TREATMENT Plan Total Prescribed Dose 6000 cGy RAD ONC TREATMENT 05/07/2024 1:48 PM CDT Provider Unknown RADIATION ONCOLOGY O RDERABLES Performing Organization Address [facility] Co de Phone Number RAD ONC TREATMENT * Rad Onc Aria Session Summary (05/04/2024 1:28 PM CDT) Course ID C1_OralCav ity RAD ONC TREATMENT Course First Treatment Date 05/03/2024 1:43 PM RAD ONC TREATMENT Reference Point ID [id number] [email or web address] RAD ONC TREATMENT Reference Point Dosage Given to Date 4 Gy RAD ONC TREATMENT Reference Point Session Dosage Given 2 Gy RAD ONC TREATMENT Plan ID #OralCavit yHN RAD ONC TREATMENT Plan Fractions Treated to Date 2 RAD ONC TREATMENT Plan Total Fractions Prescribed 30 RAD ONC TREATMENT Plan Total Prescribed Dose 6000 cGy RAD ONC TREATMENT 05/04/2024 1:28 PM CDT Provider Unknown RADIATION ONCOLOGY O RDERABLES Performing Organization Address [facility] Co de Phone Number RAD ONC TREATMENT * Rad Onc Aria Session Summary (05/03/2024 1:47 PM CDT) Course ID C1_OralCav ity RAD ONC TREATMENT Course First Treatment Date 05/03/2024 1:43 PM RAD ONC TREATMENT Reference Point ID [id number] [email or web address] RAD ONC TREATMENT Reference Point Dosage Given to Date 2 Gy RAD ONC TREATMENT Reference Point Session Dosage Given 2 Gy RAD ONC TREATMENT Plan ID #OralCavit yHN RAD ONC TREATMENT Plan Fractions Treated to Date 1 RAD ONC TREATMENT Plan Total Fractions Prescribed 30 RAD ONC TREATMENT Plan Total Prescribed Dose 6000 cGy RAD ONC TREATMENT 05/03/2024 1:47 PM CDT Provider Unknown RADIATION ONCOLOGY O RDERABLES RAD ONC TREATMENT * (ABNORMAL) GLUCOSE - POINT OF CARE (04/17/2024 8:58 AM CDT) Only the most recent of190 resultswithin the time period is included. Glucose WB/POC 126(H) 70 - 115 mg/dL 04/18/2024 12:09 AM CDT [facility] Specimen Type Cap Fingerstick 2023 12:09 AM CDT [facility] Blood BLOOD SPECIMEN / Unknown 04/17/2024 8:58 AM CDT 04/18/2024 12:09 AM CDT Elpidio Scott MD LAB - POINT OF CARE ORDERABLES Performing Organization Address City/[facility]/ZIP Co de Phone Number [facility] [address] [place] [address], [facility] [phone] * ETT LINE PERFORMABLE (04/17/2024 7:41 AM CDT) Narrative Yassine Lux Anes Asst - 04/17/2024 7:41 AM CDT Yassine Lux Anes Asst 04/17/2024 7:42 AM Endotracheal Tube Placement: Patient Location: OR. Intubation Event Date/Time: 04/17/2024 7:29 AM Procedure: intubation ([id number]) Procedure Section: Sedation: under general anesthesia. Indications for Airway Management: anesthesia Procedure pretreatments used? No Induction: standard IV Patient Position: sniffing Mask Ventilation: difficult and required 2 people (2 handed). Blade Type: Video Blade Size: 4 Laryngoscopy View: grade 1 (full cords) Intubation Adjuncts: video laryngoscope and stylet Tube: endotracheal tube Placement: oral Tube type: cuff - inflated Tube Size (MM): 7 Depth of Insertion (CM): 23 Measured From: lips Cuff volume (mL): 6 Cuff Inflated With: air Number of Attempts: 1. Placement Verified By: direct visualization, bilateral breath sounds, chest auscultation and CO2 monitor CXR Findings: ETT in proper place. Tube secured with: adhesive tape. Dentition unchanged? Yes Difficult Airway? No. Procedure Start Time: 04/17/2024 7:29 AM. Procedure End Time: 04/17/2024 7:33 AM. Procedure Total Time: 4 minutes. Staff Section Anesthesia Provider: Yassine Lux Anes Asst, Performed the procedure Provider #1: Rodríguez Woodruff MD. 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 FINDINGS/IMPRESSION: Multiple surgical clips projects over the jaw, left greater than right All maxillary and multiple mandibular teeth are missing. No acute mandibular fracture is identified. Both temporomandibular joints are intact. No periapical abscess is present. 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 FINDINGS/IMPRESSION: Multiple surgical clips projects over the jaw, left greater than right All maxillary and multiple mandibular teeth are missing. No acute mandibular fracture is identified. Both temporomandibular joints are intact. No periapical abscess is present. > Interpreting Provider: Vida Garcia MD on 04/11/2024 2:10 PM Elpidio Scott MD DIAGNOSTIC IMAGING O RDERABLES * (ABNORMAL) BASIC METABOLIC PANEL (CALCIUM TOTAL) (03/23/2024 5:11 AM CDT) Only the most recent of30 resultswithin the time period is included. BUN 36(H) 7 - 26 mg/dL 03/23/2024 6:09 AM [facility] Creatinine 1.52(H) 0.71 - 1.16 mg/dL 03/23/2024 6:09 AM [facility] Sodium 137 136 - 145 mmol/L 03/23/2024 6:09 AM [facility] Potassium 4.2 3.5 - 4.5 mmol/L 03/23/2024 6:09 AM [facility] Chloride 106 98 - 107 mmol/L 03/23/2024 6:09 AM [facility] CO2 25 22 - 29 mmol/L 03/23/2024 6:09 AM [facility] Glucose 187(H) 70 - 115 mg/dL 03/23/2024 6:09 AM [facility] Calcium 9.1 8.4 - 10.2 mg/dL 03/23/2024 6:09 AM [facility] Anion Gap 6 6 - 16 03/23/2024 6:09 AM [facility] BUN/Creatinine Ratio 24(H) 7 - 23 03/23/2024 6:09 AM [facility] Osmolality Calculated 297(H) 275 - 295 mOsm/kg 03/23/2024 6:09 AM [facility] eGFR by CKD-EPI 45(L) >=90 mL/min/1.7 3 m2 03/23/2024 6:09 AM [facility] Blood BLOOD SPECIMEN / Unknown Lab Venipuncture / Unknown 03/23/2024 5:11 AM CDT 03/23/2024 5:40 AM CDT Elpidio Scott MD LAB - CHEMISTRY MARCELO ESTES [facility] [address] [place] [id number], [facility] [phone] * ETT LINE PERFORMABLE (03/14/2024 12:39 PM CDT) Narrative Sadiq Davila DO - 03/14/2024 12:39 PM CDT Sadiq Davila DO 03/14/2024 12:39 PM Endotracheal Tube Placement: Patient Location: OR. Intubation Event Date/Time: 03/14/2024 12:01 PM Procedure: intubation ([id number]). Procedure Section: Sedation: under general anesthesia. Indications for Airway Management: anesthesia Procedure pretreatments used? No Induction: standard IV Patient Position: supine Mask Ventilation: easy. Blade Type: Deanna Blade Size: 3 Laryngoscopy View: grade 1 (full cords) Intubation Adjuncts: stylet and video laryngoscope Tube: endotracheal tube Placement: oral Tube type: cuff - inflated Tube Size (MM): 7 Depth of Insertion (CM): 22 Measured From: lips Cuff volume (mL): 8 Cuff Inflated With: air Number of Attempts: 1. Placement Verified By: direct visualization, bilateral breath sounds, chest auscultation and CO2 monitor CXR Findings: ETT in proper place. Tube secured with: adhesive tape. Dentition unchanged? Yes Difficult Airway? No. Procedure Start Time: 03/14/2024 12:01 PM. Staff Section Provider #1: Sadiq Davila DO, Performed the procedure. Michell Hitchcock MD GENERAL ANESTHESIA O [place] * TYPE + SCREEN PANEL (03/13/2024 5:10 AM CDT) Only the most recent of3 resultswithin the time period is included. Antibody Screen NEG 5:58 AM CDT [facility] ABO Rh A POS 03/13/2024 5:58 AM CDT [facility] Blood Bank BLOOD SPECIMEN / Unknown Lab Venipuncture / Unknown 03/13/2024 5:10 AM CDT 03/13/2024 5:17 AM CDT Janine Acosta DO LAB - BLOOD BANK O [place] [facility] [address] [place] [address], [facility] [phone] * (ABNORMAL) CULTURE FLUID+GRAM STAIN (03/12/2024 7:26 AM CDT) Culture Moderate Pseudomonas aeruginosa(AA) DOMINGUEZ 03/15/2024 12:26 PM CDT [facility] Culture Light Klebsiella oxytoca(AA) DOMINGUEZ 03/15/2024 12:26 PM CDT [facility] Culture Light Streptococcus agalactiae (Group B)(AA) 03/15/2024 12:26 PM CDT [facility] Culture Light Streptococcus constellatus(AA) 03/15/2024 12:26 PM CDT [facility] Culture Light Staphylococcus epidermidis(AA) 03/15/2024 12:26 PM CDT [facility] Gram Stain Moderate Red blood cells(AA) 03/15/2024 12:26 PM CDT [facility] Gram Stain Moderate Polymorphonuclear cells(AA) 03/15/2024 12:26 PM CDT [facility] Gram Stain Rare Gram-negative bacilli(AA) 03/15/2024 12:26 PM CDT [facility] Gram Stain Rare Gram-positive cocci(AA) 03/15/2024 12:26 PM CDT [facility] Fluid BODY FLUID SPECIMEN / Unknown Collection / Unknown 03/12/2024 7:26 AM CDT 03/12/2024 8:19 AM CDT Narrative [facility] - 03/15/2024 12:26 PM CDT Susceptibility testing of penicillin, other beta-lactam antibiotics, and vancomycin is not necessary for beta-hemolytic streptococci groups A,B,C and G because resistant strains have not been recognized. Organism Antibiotic Method Susceptibility Pseudomonas aeruginosa Cefepime DOMINGUEZ <=1 ug/mL: Susceptible Pseudomonas aeruginosa Ceftazidime DOMINGUEZ 2 ug/mL: Susceptible Pseudomonas aeruginosa Ciprofloxacin DOMINGUEZ <=0.25 ug/mL: Susceptible Pseudomonas aeruginosa Gentamicin DOMINGUEZ Resistant Pseudomonas aeruginosa Meropenem DOMINGUEZ <=0.25 ug/mL: Susceptible Pseudomonas aeruginosa Piperacillin-tazobactam DOMINGUEZ 8 ug/mL: Susceptible Pseudomonas aeruginosa Tobramycin DOMINGUEZ <=1 ug/mL: Susceptible Klebsiella oxytoca Amikacin DOMINGUEZ <=2 ug/mL: Susceptible Klebsiella oxytoca Ampicillin-sulbactam DOMINGUEZ 8 ug/mL: Susceptible Klebsiella oxytoca Cefazolin DOMINGUEZ <=4 ug/mL: See Comment* Klebsiella oxytoca Cefepime DOMINGUEZ <=1 ug/mL: Susceptible Klebsiella oxytoca Ceftriaxone DOMINGUEZ <=1 ug/mL: Susceptible Klebsiella oxytoca Ciprofloxacin DOMINGUEZ <=0.25 ug/mL: Susceptible Klebsiella oxytoca Extended-Spectrum Beta-Lactamase DOMINGUEZ NEG ug/mL: Neg Klebsiella oxytoca Gentamicin DOMINGUEZ <=1 ug/mL: Susceptible Klebsiella oxytoca Meropenem DOMINGUEZ <=0.25 ug/mL: Susceptible Klebsiella oxytoca Piperacillin-tazobactam DOMINGUEZ <=4 ug/mL: Susceptible Klebsiella oxytoca Tobramycin DOMINGUEZ <=1 ug/mL: Susceptible Klebsiella oxytoca Trimethoprim-sulfame thoxa zole DOMINGUEZ <=20 ug/mL: Susceptible Comment:*Cefazolin DOMINGUEZ of </ =4 cannot distinguish between susceptible or intermediate for systemic breakpoints. If further defined interpretation is needed, call Microbiology and a disk diffusion test will be performed. Elpidio Scott MD LAB - MICROBIOLOGY O RDERABLES [facility] [address] [place] [address], [facility] [phone] * (ABNORMAL) CBC W/O DIFFERENTIAL (03/12/2024 5:34 AM CDT) Only the most recent of2 resultswithin the time period is included. WBC 18.2(H) 4.0 - 10.7 x10E9/L 03/12/2024 6:18 AM [facility] RBC Count 2.99(L) 4.30 - 5.80 x10E12/L 03/12/2024 6:18 AM [facility] Hemoglobin 9.1(L) 13.3 - 17.5 g/dL 03/12/2024 6:18 AM [facility] Hematocrit 28.8(L) 38.7 - 51.1 % 03/12/2024 6:18 AM [facility] MCV 96.3 80.0 - 98.0 fL 03/12/2024 6:18 AM [facility] MCH 30.4 26.7 - 33.6 pg 03/12/2024 6:18 AM [facility] MCHC 31.6(L) 31.7 - 36.3 g/dL 03/12/2024 6:18 AM [facility] RDW-CV 14.7 11.3 - 14.8 % 03/12/2024 6:18 AM CDT [facility] Platelet Count 472(H) 150 - 420 x10E9/L 03/12/2024 6:18 AM CDT [facility] MPV 9.8 7.8 - 11.4 fL 03/12/2024 6:18 AM CDT [facility] Blood BLOOD SPECIMEN / Unknown Lab Venipuncture / Unknown 03/12/2024 5:34 AM CDT 03/12/2024 6:05 AM CDT Elpidio Scott MD LAB - HEMATOLOGY ORD ERABLES [facility] [address] [place] [address], [facility] [phone] * ETT LINE PERFORMABLE (03/09/2024 10:49 AM CDT) Narrative Rodríguez Woodruff MD - 03/09/2024 10:49 AM CDT Rodríguez Woodruff MD 03/09/2024 1:02 PM Endotracheal Tube Placement: Patient Location: OR. Intubation Event Date/Time: 03/09/2024 10:35 AM Procedure: intubation (06402). Procedure Section: Sedation: under general anesthesia. Indications for Airway Management: anesthesia Induction: standard IV Patient Position: sniffing Mask Ventilation: not attempted. Blade Type: other - plese comment (Fiberoptic intubation) Laryngoscopy View: grade 1 (full cords) (Tracheal swelling visualized on fiberoptic) Intubation Adjuncts: fiberoptic Tube: endotracheal tube Placement: oral Tube type: cuff - inflated Tube Size (MM): 6.5 Depth of Insertion (CM): 23 Measured From: lips Cuff Inflated With: air Number of Attempts: 3. Placement Verified By: direct visualization, bilateral breath sounds, chest auscultation, CO2 monitor and bronchoscope Tube secured with: adhesive tape. Dentition unchanged? Yes Difficult Airway? No. Procedure Start Time: 03/09/2024 10:35 AM. Procedure End Time: 03/09/2024 10:42 AM. Procedure Total Time: 7 minutes. Staff Section Anesthesia Provider: Rodríguez Woodruff MD, Performed the procedure Provider #1: Lui Gonzalez DO, Performed the procedure. Additional Comments: Igel LMA 4 placed and able to ventilate. Able to visualize glottic opening with scope, however tracheal opening was narrow requiring multiple attempts to guide fiberoptic as fiberoptic kept entering esophagus. After tracheal placement, tube placement confirmed via scope and placed just above ernestina. Addendum: abundant supraglottic obstruction, pinhole glottic opening requiring spont breaths to visualize trachea. Ventilation adequate via LMA, I was able to perform the FOI on my attempt Rodríguez Woodruff MD 03/09/2024 1:02 PM . 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 FLUOROSCOPY DOSE: 209.89 mGym2 Reference air kerma (ka,r). FLUOROSCOPY TIME: 2.7 minutes; Number of images: 4730 TECHNIQUE: Modified barium swallow fluoroscopy performed in conjunction with speech pathology staff. The speech pathologist administered varying thickness barium liquids and solids under direct Cine fluoroscopy. FINDINGS/IMPRESSION: Fluoroscopic assistance was provided for a modified barium swallow test performed by Speech Therapy. Please see the Speech Therapy report for details. Report dictated by Darnell Hitchcock MD (vice president commercial [employer]). I, Cuco Capellan MD have personally reviewed and interpreted this examination/study. 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 FLUOROSCOPY DOSE: 209.89 mGym2 Reference air kerma (ka,r). FLUOROSCOPY TIME: 2.7 minutes; Number of images: 4730 TECHNIQUE: Modified barium swallow fluoroscopy performed in conjunction with speech pathology staff. The speech pathologist administered varying thickness barium liquids and solids under direct Cine fluoroscopy. FINDINGS/IMPRESSION: Fluoroscopic assistance was provided for a modified barium swallow test performed by Speech Therapy. Please see the Speech Therapy report for details. Report dictated by Darnell Hitchcock MD (vice president commercial [employer]). ICuco MD have personally reviewed and interpreted this examination/study. > Interpreting Provider: Cuco Capellan MD on 03/08/2024 12:32 AM Elpidio Scott MD FLUOROSCOPY ORDERABL ES * XR CHEST 1VW PORTABLE (03/06/2024 10:22 AM CDT) Only the most recent of8 resultswithin the time period is included. 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 FINDINGS/IMPRESSION: *Endotracheal tube traverses the diaphragm and out of view. Mildly improved layering right-sided pleural effusion with adjacent atelectasis and/or airspace disease. Improved aeration within the right mid and lower lung wylie. No significant left-sided pleural effusion. No pneumothorax. The cardiomediastinal silhouette is normal. Report dictated by Darnell Hitchcock MD (vice president [employer]). Benny Driscoll MD have personally reviewed and interpreted this examination/study. 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 FINDINGS/IMPRESSION: *Endotracheal tube traverses the diaphragm and out of view. Mildly improved layering right-sided pleural effusion with adjacent atelectasis and/or airspace disease. Improved aeration within the rightmid and lower lung wylie. No significant left-sided pleural effusion. No pneumothorax. The cardiomediastinal silhouette is normal. Report dictated by Darnell Hitchcock MD (vice president commercial [employer]). I, Benny High MD have personally reviewed andinterpreted this examination/study. > Interpreting Provider: Benny High MD on 03/06/2024 10:52AM Elpidio Scott MD DIAGNOSTIC IMAGING O RDERABLES * (ABNORMAL) URINALYSIS REFLEX TO MICROSCOPIC NO CULTURE (03/06/2024 10:03 AM CDT) Color UA Yellow Straw, Yellow 03/06/2024 10:20 AM [facility] Clarity UA Clear Clear 03/06/2024 10:20 AM [facility] Specific [place] UA 1.014 1.005 - 1.030 03/06/2024 10:20 AM [facility] pH UA 7.0 5.0 - 8.0 pH 03/06/2024 10:20 AM [facility] Protein UA Negative Negative 03/06/2024 10:20 AM [facility] Glucose UA Negative Negative 03/06/2024 10:20 AM [facility] Ketone UA Negative Negative 03/06/2024 10:20 AM [facility] Bilirubin UA Negative Negative 03/06/2024 10:20 AM [facility] Blood UA Negative Negative 03/06/2024 10:20 AM [facility] Nitrite UA Negative Negative 03/06/2024 10:20 AM [facility] Leukocyte Esterase Negative Negative 03/06/2024 10:20 AM [facility] Urobilinogen UA 2.0(A) Negative mg/dL 03/06/2024 10:20 AM [facility] RBC UA 0-2 None Seen, 0-2, 3-5 /HPF 03/06/2024 10:20 AM [facility] WBC UA 0-5 None Seen, 0-5 /HPF 03/06/2024 10:20 AM [facility] Squamous Epithelial Cells UA 0-2 None Seen, 0-2, 3-5 /HPF 03/06/2024 10:20 AM [facility] Urine URINE SPECIMEN OBTAINED BY CLEAN CATCH PROCEDURE / Unknown Collection / Unknown 03/06/2024 10:03 AM CDT 03/06/2024 10:05 AM [facility] - 03/06/2024 10:20 AM CDT Elpidio Scott MD LAB - URINALYSIS ORD ERABLES [facility] [address] [place] [phone], [facility] [phone] * (ABNORMAL) DIFFERENTIAL MANUAL (03/05/2024 11:52 PM CDT) Only the most recent of2 resultswithin the time period is included. Neutrophil % 61 41 - 74 % 03/06/2024 12:37 AM [facility] Lymphocyte % 16(L) 17 - 47 % 03/06/2024 12:37 AM [facility] Monocyte % 15(H) 3 - 11 % 03/06/2024 12:37 AM [facility] Eosinophil % 4 0 - 7 % 03/06/2024 12:37 AM [facility] Metamyelocyte % 2(H) 0% % 12:37 AM [facility] Myelocyte % 2(H) 0% % 03/06/2024 12:37 AM [facility] Neutrophil Absolute 6.83 1.60 - 7.50 x10E9/L 03/06/2024 12:37 AM [facility] Lymphocyte Absolute 1.79 1.00 - 4.40 x10E9/L 03/06/2024 12:37 AM [facility] Monocyte Absolute 1.68(H) 0.15 - 1.00 x10E9/L 03/06/2024 12:37 AM [facility] Eosinophil Absolute 0.45 0.00 - 0.60 x10E9/L 03/06/2024 12:37 AM [facility] RBC Morphology REVIEWED 03/06/2024 12:37 AM [facility] Stomatocytes MODERATE(A) (none) 03/06/2024 12:37 AM [facility] Large Platelets PRESENT(A) (none) 12:37 AM [facility] Blood BLOOD SPECIMEN / Unknown Venipuncture / Unknown 03/05/2024 11:52 PM CDT 03/05/2024 11:58 PM T Elpidio Scott MD LAB - HEMATOLOGY ORD ERABLES [facility] [address] [place] [phone] [phone] * (ABNORMAL) BLOOD GASES ART + COOX PANEL (03/05/2024 12:12 AM T) Only the most recent of16 resultswithin the time period is included. pH Arterial 7.48(H) 7.35 - 7.45 pH 03/05/2024 12:35 AM [facility] pO2 Arterial 90 80 - 100 mmHg 03/05/2024 12:35 AM [facility] pCO2 Arterial 59(H) 35 - 45 mmHg 12:35 AM [facility] HCO3 Arterial 43.9(H) 20.0 - 30.0 mmol/L 03/05/2024 12:35 AM [facility] BE Arterial 18.1(H) -2.0 - 2.0 mmol/L 03/05/2024 12:35 AM [facility] Oxyhemoglobin Arterial 96.6 % 03/05/2024 12:35 AM [facility] Dexoyhemoglobin (HHB) % <1.0 % 03/05/2024 12:35 AM T [facility] Methemoglobin 1.0 0.0 - 2.0 % 03/05/2024 12:35 AM [facility] Carboxyhemoglobin 2.0 0.0 - 2.0 % 2023 12:35 AM [facility] O2 Content Arterial 12.8 Interpret within clinical context ml/dL 03/05/2024 12:35 AM [facility] Hemoglobin by COOX 9.3(L) 12.0 - 17.6 g/dL 03/05/2024 12:35 AM [facility] O2 Saturation Arterial 100 90 - 100 % 03/05/2024 12:35 AM [facility] FI O2 Arterial 30.0 % 03/05/2024 12:35 AM T [facility] Blood, arterial ARTERIAL BLOOD SPECIMEN / Unknown Arterial Puncture / Unknown 03/05/2024 12:12 AM CDT 03/05/2024 12:21 AM CDT Narrative [facility] - 03/05/2024 12:35 AM CDT Carboxyhemoglobin Normal Concentration: Non-smokers: 0-2%; Smokers: 0-9%; Toxic: >20% Elpidio Scott MD LAB - BLOOD GASES OR DERABLES [address] [address], [facility] [phone] * (ABNORMAL) POTASSIUM WHOLE BLD (03/04/2024 8:57 PM CDT) Only the most recent of3 resultswithin the time period is included. Potassium Whole Blood 5.7(H) 3.5 - 5.5 mmol/L 03/04/2024 9:19 PM T [facility] Blood WHOLE BLOOD SPECIMEN / Unknown Venipuncture / Unknown 03/04/2024 8:57 PM CDT 03/04/2024 9:02 PM CDT Elpidio Scott MD LAB - CHEMISTRY ORDE FRANKLYN [facility] [address] [place] [id number], [place] [phone] * PREPARE (CROSSMATCH) RBC UNIT(S), 1 Units (03/02/2024 1:17 AM CDT) Only the most recent of3 resultswithin the time period is included. Unit Description N/A [facility] Blood Bank BLOOD SPECIMEN / Unknown 02/27/2024 6:30 AM CDT Fer Vernon MD LAB - BLOOD BANK ORD ERABLES Performing Organization Address [facility] Co de Phone Number [facility] [address] [place] [phone], [facility] [phone] * TSH REFLEX FREE T4 (02/28/2024 11:10 PM CDT) TSH 2.493 0.350 - 4.940 uIU/mL 02/29/2024 12:08 AM CDT [facility] Blood BLOOD SPECIMEN / Unknown Venipuncture / Unknown 02/28/2024 11:10 PM CDT 02/28/2024 11:22 PM CDT Elpidio Scott MD LAB - CHEMISTRY ORDE FRANKLYN Performing Organization Address [facility] Co de Phone Number [address] [phone], [facility] [phone] * ETT LINE PERFORMABLE (02/28/2024 11:30 AM CDT) Narrative Sadiq Davila DO - 02/28/2024 11:30 AM CDT Sadiq Davila DO 02/28/2024 11:31 AM Endotracheal Tube Placement: Patient Location: OR. Intubation Event Date/Time: 02/28/2024 11:06 AM Procedure: intubation (74701). Procedure Section: Sedation: under general anesthesia. Indications for Airway Management: anesthesia Procedure pretreatments used? No Induction: rapid sequence Patient Position: supine Mask Ventilation: easy. Blade Type: Video Blade Size: 4 Laryngoscopy View: grade 1 (full cords) Intubation Adjuncts: cricoid pressure, video laryngoscope and Eschmann introducer Tube: endotracheal tube Placement: oral Tube type: cuff - inflated Tube Size (MM): 7 Depth of Insertion (CM): 24 Measured From: lips Cuff volume (mL): 7 Cuff Inflated With: air Number of Attempts: 1. Placement Verified By: direct visualization, bilateral breath sounds, chest auscultation and CO2 monitor CXR Findings: ETT in proper place. Tube secured with: adhesive tape. Dentition unchanged? Yes Difficult Airway? No. Procedure Start Time: 02/28/2024 11:06 AM. Staff Section Provider #1: Sadiq Davila DO, Performed the procedure. Additional Comments: Eschman introducer used in place of stylet; good view, easy to pass tube, atraumatic placement. 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 FINDINGS/IMPRESSION: Dobbhoff tube courses below the diaphragm with the distal tip superimposing the gastric body. The visualized bowel gas pattern in the upper abdomen appeared without concerning abnormality. Report dictated by Neri Kam MD (vice president [employer]). ILui MD have personally reviewed and interpreted this examination/study. 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 FINDINGS/IMPRESSION: Dobbhoff tube courses below the diaphragm with the distal tipsuperimposing the gastric body. The visualized bowel gas pattern in the upper abdomen appeared without concerning abnormality. Report dictated by Neri Kam MD (vice president commercial [employer]). I, Lui Mason MD have personally reviewed and interpreted this examination/study. > Interpreting Provider: Lui Mason MD on 02/28/2024 8:46 AM Elpidio Scott MD DIAGNOSTIC IMAGING O RDERABLES * (ABNORMAL) BLOOD GAS+COOX+LYTES+METAB ARTERIAL POCT (02/27/2024 12:50 PM CDT) pH Arterial 7.36 7.35 - 7.45 pH 02/27/2024 12:50 PM [facility] pO2 Arterial 113(H) 80 - 100 mmHg 02/27/2024 12:50 PM [facility] pCO2 Arterial 36 35 - 45 mmHg 12:50 PM [facility] HCO3 Arterial 20.3 20.0 - 30.0 mmol/L 02/27/2024 12:50 PM [facility] BE Arterial -4.7(L) -2.0 - 2.0 mmol/L 02/27/2024 12:50 PM [facility] Oxyhemoglobin Arterial 96.6 % 02/27/2024 12:50 PM [facility] Dexoyhemoglobin (HHB) % <1.0 % 02/27/2024 12:50 PM [facility] Methemoglobin 1.0 0.0 - 2.0 % 02/27/2024 12:50 PM [facility] Carboxyhemoglobin 2.0 0.0 - 2.0 % 2023 12:50 PM [facility] Comment:Carboxyhemoglobin No rmal Concentration: Non-smokers: 0-2%; Smokers: 0- 9%; Toxic: >20% O2 Content Arterial 12.4 Interpret within clinical context ml/dL 02/27/2024 12:50 PM [facility] Hemoglobin by COOX 9.0(L) 12.0 - 17.6 g/dL 02/27/2024 12:50 PM T [facility] O2 Saturation Arterial 100 90 - 100 % 02/27/2024 12:50 PM T [facility] Sodium Whole Blood 135 135 - 145 mmol/L 02/27/2024 12:50 PM T [facility] Potassium Whole Blood 4.5 3.5 - 5.5 mmol/L 02/27/2024 12:50 PM T [facility] Chloride WB 104 78 - 107 mmol/L 02/27/2024 12:50 PM T [facility] Calcium Ionized 1.35 mmol/L 12:50 PM [facility] Ionized Calcium pH Adjusted 1.33 1.19 - 1.34 mmol/L 02/27/2024 12:50 PM [facility] Anion Gap (AG) Arterial 11 6 - 16 mmol/L 02/27/2024 12:50 PM [facility] Glucose WB 243(H) 70 - 115 mg/dL 02/27/2024 12:50 PM [facility] Lactic Acid Whole Blood 0.9 <=2.0 mmol/L 02/27/2024 12:50 PM T [facility] Blood, arterial ARTERIAL BLOOD SPECIMEN / Unknown 02/27/2024 12:50 PM CDT 02/27/2024 12:51 PM CDT Elpidio Scott MD LAB - POINT OF CARE ORDERABLES [facility] [address] [place] [phone], [facility] [phone] * BLOOD GAS ART+LYTES+METAB+COOX POC NOTIF (02/27/2024 8:59 AM CDT) Comment Notification Label Only - See Separate Report 02/27/2024 2:01 PM CDT [facility] Other MISCELLANEOUS SAMPLES / Unknown 02/27/2024 8:59 AM CDT 02/27/2024 12:48 PM CDT Kiran Nugent MD LAB - BLOOD GASES O RDERABLES [facility] [address] [place] [address], [facility] [phone] * PATHOLOGY TISSUE (02/27/2024 8:35 AM CDT) Only the most recent of2 resultswithin the time period is included. Case Report Surgical Pathology Report Case: [id number] Authorizing Provider: Elpidio Scott MD Collected: 02/27/2024 08:35 AM Ordering Location: [facility] Received: 02/27/2024 10:03 AM Pathologist: Merline Devlin MD Specimens: A) - Soft Tissue Mass, LOWER LIP RESECTION B) - Neck, LEFT NECK LEVEL 1 C) - Neck, LEFT NECK LEVEL 2A D) - Neck, LEFT NECK LEVEL 3 E) - Margin, REVISION LEFT BUCCAL RESECTION - INK TRUE MARGIN F) - Bone, MANDIBLE BONE RESECTION G) - Neck, RIGHT NECK LEVEL1 H) - Neck, RIGHT NECK [id number] I) - Neck, RIGHT NECK LEVEL 3 3:06 PM CDT [facility] Final Diagnosis Soft tissue, lower lip, resection (FSA/A): - Invasive squamous cell carcinoma, keratinizing, 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), pT3 - Carcinoma less than 1 mm to left lateral mucosal and left posterior/periosteum specimen margins (see parts E and F for final margins) - Perineural invasion present (< 0.1 mm caliber in dermis) Lymph nodes, left neck level I, dissection (B): - Seven lymph nodes negative for malignancy (0/7) - Benign salivary gland Lymph nodes, left neck level IIA, dissection (C): - Fifteen lymph nodes negative for malignancy (0/15) Lymph nodes, left neck level III, dissection (D): - Eleven lymph nodes negative for malignancy (0/11) - Benign salivary gland Soft tissue, revision left buccal, resection (E): - Benign mucosa and skeletal muscle Bone, mandible, resection (F): - Benign bone and skeletal muscle Lymph nodes, right neck level I, dissection (G): - Four lymph nodes negative for malignancy (0/4) - Benign salivary gland Lymph nodes, right neck level IIA, dissection (H): - Seven lymph nodes negative for malignancy (0/7) Lymph nodes, right neck level III, dissection (I): - Twelve lymph nodes negative for malignancy (0/12) 3:[address] [facility] Microscopic Description and Comment Frozen section diagnosis is confirmed. Histologic sections show a well-differentiated keratinizing squamous cell carcinoma that appear to connect to the cutaneous portion of the lip (A5), near the transition to mucosa. The tumor is less than 1 mm to the left lateral mucosal margin (FSA1/A1) and left posterior margin (FSA2/A2 and A4), 5 mm to the right posterior margin (A6) and greater than 5 mm to the right lateral mucosal margin. The tumor does not invade the mandible. All lymph nodes are negative for malignancy. The margin status in the synoptic report reflects the final margins, including additional specimens E and F. 3:[address] [facility] Clinical History The patient is a 83-year-old male with history of a large lower lip mass centered on the left vermilion extending into the left commissure and nearly to the right commissure. Prior biopsy showed keratinizing squamous cell carcinoma ([id number], 02/10/2024). Operative procedure: total lower lip resection, bilateral neck dissection. 3:[address] [facility] Intraoperative Consultation A. Lower lip resection is an oriented (suture right) of lip comprising skin (8.0 cm length x 3.1-3.4 cm width) continuous with oral mucosa (8.0 cm length x 2.0-2.5 cm width), with an overall thickness of 1.7 cm. There is a 3.5 x 2.5 cm ulcer centrally where the mucosa and skin meet, and a 0.7 cm white nodule on the mucosa at the left lateral aspect on the mucosal side. The anterior half of the margin (subcutaneous) is inked black, the posterior half of the the margin (submucosal and periosteal) is inked blue. Areas of concern for surgeon are frozen as follows: FSA1-left lateral mucosal nodule to margin, FSA2-periosteal (left-sided) margin. Rest fixed in formalin for permanents. Intraoperative diagnosis: FS A1 left lateral mucosal margin: - Squamous cell carcinoma less than 1 mm from inked margin FS A2 left posterior (periosteum) margin: - Squamous cell carcinoma, less than 1 mm from inked surface (periosteal margin) By Britta Willams MD 4 3:06 PM CDT [facility] Gross Description The requisition and specimen(s) are identified with the patient's name Bereket Taylor and received in formalin from intraoperative consultation, specimen A , is previously inked, sectioned, and sampled consistent with the intraoperative note. The frozen section remnant of FSA1 and FSA2 respectively submitted in cassettes A1 and A2. Sectioning shows a 7.5 x 2.5 x 1.6 cm firm, ill-defined, white-warren lesion, less than 1 mm from the left lateral mucosal margin, less than 1 mm from the left posterior margin, 0.8 cm from the right posterior margin, and 0.5 cm from the right lateral margin. After sectioning, the nodule noted on intraoperative consultation is found to be continuous with the described ulcer. Sanforizer sections are submitted as follows: A3-left lateral mucosal margin with tumor A4-left posterior margin with tumor A5-A6-right posterior margin with tumor A7-right lateral mucosal margin with tumor A8-S12-flbr. AP Received in formalin, specimen B is a 5.5 x 4.8 x 2.8 cm excision of warren-yellow and lobulated adipose tissue with pink-warren fibrous stroma and focal areas of cautery. 6 lymph node candidates are identified within the adipose tissue, ranging from 0.4 to 2.5 cm in greatest dimension. Also identified within the adipose tissue is a 4.4 x 2.5 x 1.5 cm portion of pink-warren and lobulated suspected salivary gland. The outer surfaces of the 2 largest lymph node candidates and the suspected salivary gland are inked blue. Sectioning the lymph node candidates reveals pink-warren, glistening and focally hemorrhagic cut surfaces that are otherwise unremarkable. Sectioning the suspected salivary gland reveals warren-yellow and lobulated parenchyma with focal areas of hemorrhage that is otherwise unremarkable. A community service representative section of salivary gland and all lymph node candidates are submitted as follows: B1, 2 lymph node candidates, left whole; B2, 2 lymph node candidates, differentially inked and bisected; B3, 1 lymph node candidate, inked and serially sectioned; B4, 1 lymph node candidate, inked and serially sectioned; B5-B6, largest lymph node candidate, inked and serially sectioned, B7, suspected salivary gland. AL Received in formalin, specimen C is a 5.1 x 3.8 x 1.4 cm excision of warren-yellow and lobulated adipose tissue with pink-warren fibrous stroma and focal areas of cautery. 17 lymph node candidates are identified within the adipose tissue, ranging from 0.3 to 1.8 cm in greatest dimension. The outer surfaces of the largest lymph node candidate is inked blue. Sectioning the lymph node candidates reveals pink-warren, glistening and focally hemorrhagic cut surfaces that are otherwise unremarkable. All lymph node candidates are submitted as follows: C1, 6 lymph node candidates, left whole; C2-C6, 1 lymph node candidate each, bisected; C7, 5 lymph node candidates, left whole; C8, largest lymph node candidate, inked and serially sectioned. AL Received in formalin, specimen D is a irregular, unoriented segment of yellow-brown lobulated fibroadipose soft tissue measuring 5.0 x 3.0 x 2.0 cm. Palpation and sectioning reveals 15 lymph node candidates ranging from 0.2 cm to 3.0 cm in greatest dimension. The candidates are entirely submitted as follows: D1 6 lymph node candidates, in toto D2 6 lymph candidates, in toto D3 3 lymph node candidates, in toto Received in formalin, specimen E is a oriented, irregular, crescent-shaped segment of mucosal soft tissue measuring 2.0 x 0.7 and excised to a maximum depth of 1.5 cm. The new margin has been previously inked black by the surgeon. The new margin is reinked black, the opposing surface is inked blue. The specimen is serially sectioned and entirely submitted in E1-E2. Received in formalin, specimen F is a irregular, unoriented segment of warren-white bone with a minimal amount of attached soft tissue measuring 3.0 x 1.0 x 0.3 cm. Submitted in toto in F1 and decalcification. MSL Received in formalin, specimen G is a 5.2 x 4.8 x 2.2 cm excision of warren-yellow and lobulated adipose tissue with pink-warren fibrous stroma and focal areas of cautery. 4 lymph node candidates are identified within the adipose tissue, ranging from 0.6 to 1.2 cm in greatest dimension. Also identified within the adipose tissue is a 4.2 x 2.2 x 1.8 cm portion of pink-warren and lobulated suspected salivary gland. The outer surface of the suspected salivary gland is inked blue. Sectioning the lymph node candidates reveals pink-warren, glistening and focally hemorrhagic cut surfaces that are otherwise unremarkable. Sectioning the suspected salivary gland reveals warren-yellow and lobulated parenchyma with focal areas of hemorrhage that is otherwise unremarkable. A community service representative section of salivary gland and all lymph node candidates are submitted as follows: G1, 1 lymph node candidate, bisected; G2, 1 lymph node candidate, left whole; G3-G4, 1 lymph node candidate each, serially sectioned; G5, suspected salivary gland. AL Received in formalin, specimen 'H', consists of a 5.0 x 4.9 x 1.7 cm portion of fibroadipose tissue. Upon palpation, multiple lymph nodes are identified, 0.3-1.9 cm. The lymph nodes are submitted entirely as follows: H1-Multiple intact lymph nodes H2-H3-Each with one bisected lymph node. /BAJ Received in formalin, specimen 'I', consists of a 5.0 x 1.9 x 0.91 cm portion of fibroadipose tissue. Upon palpation, multiple lymph nodes are identified, 0.2-1.2 cm. The lymph nodes are submitted entirely as follows: I1-I2- Multiple intact lymph nodes I3- One bisected lymph node./BAJ 4 3:[address] [facility] Pathologist Location at [facility] 4 3:[address] [facility] Disclaimer The performance characteristics of all immunohistochemical and indirect immunofluorescence stains (if any) cited in this report were determined by the Histopathology Laboratory of [facility]. Some of these tests were developed by our own laboratory and have not been cleared or approved by the US Food and Drug Administration. The FDA does not require this test to go through premarket FDA review. These tests are used for clinical purposes. They should not be regarded as investigational or for research. This laboratory is certified under the Clinical Laboratory Improvement Amendments (CLIA) as qualified to perform high complexity clinical laboratory testing. This case has been personally reviewed and interpreted by the attending (teaching) pathologist. 4 3:[address] [facility] Synoptic Report CUTANEOUS SQUAMOUS CELL CARCINOMA OF THE HEAD AND NECK CUTANEOUS SQUAMOUS CELL CARCINOMA OF THE HEAD AND NECK - All Specimens 8th Edition - Protocol posted: 07/14/2022 SPECIMEN Procedure: Excision, wide Procedure: Lymphadenectomy, regional nodes: bilateral neck dissection - levels I, IIA, III TUMOR Tumor Focality: Unifocal Multiple Primary Sites: Not applicable Tumor Site: left vermilion of the lower lip Tumor Laterality: Left Tumor Size: Greatest dimension (Centimeters): 7.5 cm Additional Dimensions (Centimeters): 2.5 cm Additional Dimensions (Centimeters): 1.6 cm Histologic Type: Squamous cell carcinoma, not otherwise specified Histologic Grade: G1 Tumor Depth of Invasion (DOI): Depth in Millimeters: 23 mm Anatomic Level: V (carcinoma invades subcutaneum) Lymphovascular Invasion: Not identified Perineural Invasion: Present : Less than 0.1 mm in caliber MARGINS Margin Status for Invasive Tumor: All margins negative for invasive tumor Margin Status for Noninvasive Tumor: Not applicable REGIONAL LYMPH NODES Regional Lymph Node Status: : All regional lymph nodes negative for tumor Number of Lymph Nodes Examined: 56 PATHOLOGIC STAGE CLASSIFICATION (pTNM, AJCC 8th Edition) Reporting of pT, pN, and (when applicable) pM categories is based on information available to the pathologist at the time the report is issued. As per the AJCC (Chapter 1, 8th Ed.) it is the managing physician's responsibility to establish the final pathologic stage based upon all pertinent information, including but potentially not limited to this pathology report. pT Category: pT3 pN Category: pN0 4 3:06 PM T [facility] Embedded Images 4 3:06 PM T [facility] Biopsy, Excision SOFT TISSUE MASS / Unknown 02/27/2024 8:35 AM CDT 02/27/2024 10:03 AM CDT Comment:Pre-op diagnosis: Lip lesion [K13.0] Biopsy, Excision ENTIRE NECK / Unknown 02/27/2024 10:01 AM CDT 02/27/2024 3:00 PM CDT Comment:Pre-op diagnosis: Lip lesion [K13.0] Biopsy, Excision ENTIRE NECK / Unknown 02/27/2024 10:01 AM CDT 02/27/2024 3:00 PM CDT Comment:Pre-op diagnosis: Lip lesion [K13.0] Biopsy, Excision ENTIRE NECK / Unknown 02/27/2024 10:02 AM CDT 02/27/2024 3:00 PM CDT Comment:Pre-op diagnosis: Lip lesion [K13.0] Biopsy, Excision (Margin) 02/27/2024 10:08 AM CDT 02/27/2024 3:00 PM CDT Comment:Pre-op diagnosis: Lip lesion [K13.0] Biopsy, Excision BONE SPECIMEN / Unknown 02/27/2024 10:10 AM CDT 02/27/2024 3:00 PM CDT Comment:Pre-op diagnosis: Lip lesion [K13.0] Biopsy, Excision ENTIRE NECK / Unknown 02/27/2024 10:51 AM CDT 02/27/2024 3:00 PM CDT Comment:Pre-op diagnosis: Lip lesion [K13.0] Biopsy, Excision ENTIRE NECK / Unknown 02/27/2024 11:07 AM CDT 02/27/2024 3:00 PM CDT Comment:Pre-op diagnosis: Lip lesion [K13.0] Biopsy, Excision ENTIRE NECK / Unknown 02/27/2024 11:08 AM CDT 02/27/2024 3:00 PM CDT Comment:Pre-op diagnosis: Lip lesion [K13.0] Elpidio Scott MD LAB - PATHOLOGY/CYTO LOGY ORDERABLES Performing Organization Address [facility] Co de Phone Number [facility] [address] [phone] * ARTERIAL LINE PERFORMABLE (02/27/2024 8:15 AM CDT) Narrative Abe Braga MD - 02/27/2024 8:15 AM CDT Abe Braga MD 02/27/2024 8:17 AM Arterial Line Placement Procedure Note Patient Location: OR. Procedure: Arterial Line ([id number]). Procedure Section Indications: continuous blood pressure monitoring and blood sampling needed. Consent: a time out was performed for patient safety, informed consent was obtained for the procedure and risks of hemorrhage, hematoma, infection and adverse drug reactions were discussed. Skin Prep: Chloraprep. Orientation: Right. Site: radial. Site Identification: ultrasound guided with sterile sleeve and gel. Sterile Technique: sterile gloves. Gauge: 20. Catheter Length: 1 and 1/4 inch. Catheter Type: Arrow. Seldinger Technique Used? Yes Number of Attempts: 3. Line Secured with: tape and Tegaderm. Procedure Tolerance: tolerated well. Events: hematoma. Procedure Start Time: 02/27/2024 7:58 AM. Procedure End Time: 02/27/2024 7:59 AM. Procedure Total Time: 1 minutes. Patient Sedated? No (patient under GETA) Local Anesthetic Used? No Staff Section Anesthesia Provider: Abe Braga MD, Performed the procedure Abe Braga MD GENERAL ANESTHESIA O RDERABLES * IV PLACEMENT PERFORMABLE (02/27/2024 8:13 AM CDT) Narrative Abe Braga MD - 02/27/2024 8:13 AM CDT Abe Braga MD 02/27/2024 8:15 AM Peripheral IV Line Placement: Patient Location: OR Insertion Time: 02/27/2024 7:45 AM Procedure: IV start ([id number]). Procedure Section: Skin Prep: alcohol. Orientation: right Location: forearm Local Anesthetic Used? No Catheter Gauge: 16 Catheter Length (in): 1 Number of Attempts: 1. Procedure Tolerance: tolerated well. Procedure Start Time: 02/27/2024 7:45 AM. Procedure End Time: 02/27/2024 7:46 AM. Procedure Total Time: 1 minutes. Staff Section Anesthesia Provider: Abe Braga MD, Performed the procedure Abe Braga MD GENERAL ANESTHESIA O RDERABLES * ARTERIAL LINE PERFORMABLE (02/27/2024 8:11 AM CDT) Narrative Dung Roman Anes Asst - 02/27/2024 8:11 AM CDT Dung Roman Anes Asst 02/27/2024 8:12 AM Arterial Line Placement Procedure Note Patient Location: OR. Procedure: Arterial Line ([id number]). Procedure Section Indications: continuous blood pressure monitoring. Consent: informed consent was obtained for the procedure, a time out was performed for patient safety, risks of hemorrhage, hematoma, infection and adverse drug reactions were discussed and informed consent was obtained for the procedure, including sedation. Skin Prep: Chloraprep. Orientation: Right. Site: radial. Site Identification: palpation. Sterile Technique: small sterile fenestrated drape, sterile gloves, mask and cap. Gauge: 20. Seldinger Technique Used? Yes Number of Attempts: 3. Line Secured with: Tegaderm. Procedure Tolerance: performed while patient under general anesthesia. Procedure Start Time: 02/27/2024 8:01 AM. Patient Sedated? Yes Sedation Types: general anesthesia Staff Section Anesthesia Provider: Abe Braga MD, Performed the procedure Provider #1: Dung Roman Anes Asst. Abe Braga MD GENERAL ANESTHESIA O RDERARADHA * ETT LINE PERFORMABLE (02/27/2024 8:08 AM CDT) Narrative Dung Roman Anes Asst - 02/27/2024 8:08 AM CDT uDng Roman Anes Asst 02/27/2024 8:11 AM Endotracheal Tube Placement: Patient Location: OR. Intubation Event Date/Time: 02/27/2024 7:41 AM Procedure: intubation ([id number]). Procedure Section: Sedation: under general anesthesia. Indications for Airway Management: anesthesia Induction: standard IV Patient Position: supine Mask Ventilation: easy with oral airway. Blade Type: Video Blade Size: 4 Laryngoscopy View: grade 1 (full cords) Intubation Adjuncts: stylet Tube: KAYE tube Placement: left nare Tube type: cuff - inflated Tube Size (MM): 7 Measured From: lips Cuff Inflated With: air Number of Attempts: 1. Placement Verified By: bilateral breath sounds, chest auscultation, CO2 monitor and CO2 detector Tube secured with: adhesive tape. Dentition unchanged? Yes Difficult Airway? No. Procedure Start Time: 02/27/2024 7:41 AM. Staff Section Anesthesia Provider: Dung Roman Anes Asst, Performed the procedure Provider #1: Abe Braga MD. Additional Comments: Atraumatic nasal intubation, left nare dilated with 2 nasal trumpets. 8.0 nasal kaye unable to pass, 7.0 passed. All tubes and trumpets were dipped in a lidocaine phenylephrine lubrication solution. . Abe Braga MD GENERAL ANESTHESIA O BENIERARADHA * BLOOD TYPE VERIFICATION (02/27/2024 6:38 AM CDT) ABO Rh A POS 02/27/2024 7:2 9 AM CDT [facility] Blood Bank BLOOD SPECIMEN / Unknown 02/27/2024 6:38 AM CDT 02/27/2024 6:48 AM CDT Elpidio Scott MD LAB - BLOOD BANK ORD ERABLES [facility] [address] [place] [address], [facility] [phone] * CT BIOPSY OF LIP (02/10/2024 10:57 AM CDT) Narrative Elpidio Scott MD - 02/10/2024 10:57 AM CDT Joel Jackson MD 02/10/2024 1:49 PM Based on the appearance of the lower lip lesion, the decision was made to perform a procedural biopsy for pathologic evaluation. The purpose of the procedure was discussed with the patient. After consent was obtained, 1% lidocaine/1:[id number] epinephrine was injected surrounding the area for biopsy and given sufficient time for anesthetic and vasoconstrictive effect. Next, using 6mm punch biopsy, 1 sample was taken and placed in a labeled formalin container. Hemostasis was then achieved with silver nitrate cautery and the procedure was terminated. The patient tolerated the procedure well. Elpidio Scott MD PROCEDURE/MINOR SURG ICAL ORDERABLES Care Teams Bodily Injury Adjuster Relationship Specialty Start Date End Date Chhaya Thornton APRN-LA NENA [address] [place] [address] PCP - General Nurse Practitioner Adult Health 02/10/24
[2024-12-05 13:42] LABS: Albumin Level 3.9 g/dL (3.5-5.1); Anion Gap 12 mmol/L (4-12); Blood Urea Nitrogen 34 mg/dL (9-20); Calcium 9.3 mg/dL (8.4-10.2); Carbon Dioxide 21 mmol/L (22-30); Chloride 107 mmol/L (98-107); Estimated Glomerular Filt Rate 47; Glucose 90 mg/dL (65-110); Phosphorus 3.6 mg/dL (2.5-4.5); Potassium 5.1 mmol/L (3.4-5.0); Sodium 140 mmol/L (137-145)
[2024-12-05 13:51] LABS: Parathyroid Intact 64.8 pg/mL (14.5-75.2)
[2024-12-05 14:06] LABS: Vitamin D 25 Hydroxy 59.6 ng/mL
[2024-12-05 14:53] LABS: Creatinine Urine 120.3 mg/dL; Total Protein Urine Random 27 mg/dL; Ur Ttl Prot Creatinine Ratio 0.22 mg/mg (0-0.20)
== END 2024-12-05 13:02 | disposition home or self-care (01) ==
LOC: ANHLAB 13:04
PROVIDERS: PCP Nurse Practitioner Family; Visit Provider Internal Medicine Nephrology
DX: I12.9 Hypertensive chronic kidney disease with stage 1 through stage 4 chronic kidney disease, or unspecified chronic kidney disease (principal); E11.22 Type 2 diabetes mellitus with diabetic chronic kidney disease; N18.32 Chronic kidney disease, stage 3b; N25.81 Secondary hyperparathyroidism of renal origin; E55.9 Vitamin D deficiency, unspecified
CPT/HCPCS: 36415; 80069; 82306; 82570; 83970; 84156

== ENCOUNTER 2025-04-02 08:34 | Outpatient (CLI) | payer MEDICARE, SELFPAY ==
--- OUTSIDE RECORDS SUMMARY | 2025-04-02 08:47 | XMS_ITS | Clinical Summary ---
Author Organization [facility] Address [address] [place] [address] Phone Care Team Providers Care Screw Machine Hand Name Role Phone Venkata Rocha DO Primary Care Provider [phone] Allergies No known active allergies Medications simvastatin (ZOCOR) 40 MG tablet 1 qday 0 12/06/2018 Active aspirin (ASPIRIN ADULT LOW STRENGTH) 81 MG EC tablet 1 qday 0 12/06/2018 Act betito ergocalciferol (VITAMIN D-2) 32986 units capsule 1 every month 0 12/06/2018 Active olmesartan (BENICAR) 20 MG tablet 1 qday 0 12/06/2018 Active levothyroxine (SYNTHROID, LEVOTHROID) 125 MCG tablet 1 qday 0 12/06/2018 Active acarbose (PRECOSE) 50 MG tablet 1 tid 0 12/06/2018 Active TRULICITY 1.5 MG/0.5ML solution pen-injector 12/04/2019 Active glimepiride (AMARYL) 2 MG tablet TAKE 1 [...] hyperlipidemia 12/06/2018 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 Immunizations Immunization Administration Dates Next Due Influenza Trivalent Adjuvanted [...] Recorded Sex Assigned at Not on file Legal Sex Male 9:34 AM [facility] Gender Identity Not on file Sexual Orientation [...] 1:01 PM CDT Height 170.2 cm (5' 7) 06/16/2022 1:01 PM CDT Body Mass Index 31.95 06/16/2022 1:01 PM CDT Plan of Treatment Health Maintenance Due Date Last Done Comments Pneumococcal PPSV23/PCV13 65 + Years / Low and Medium Risk (2 of 3 - PPSV23) 09/03/2020 09/03/2019 Influenza Vaccine (Season Ended) 2025 11/17/19 19 Insurance MEDICARE [facility] Care Teams Screw Machine Hand Relationship Specialty Start Date End Date Venkata Rocha DO [address] [place] [phone] PCP - General Internal Medicine 06/02/20
--- OUTSIDE RECORDS SUMMARY | 2025-04-02 08:47 | XMS_ITS | Clinical Summary ---
Author Organization [facility] Address [address] [place] [address] Care Team Providers Care Tax Advisor Name Role Phone Chhaya Thornton MELANIA-DIE KEEPER Primary Care Provider Source Comments [facility],non-owned Affiliates and Associated Physician Practices is amultiple site organization consisting of ambulatory clinics and hospital sitesin [place], [place], [place] and [place]. This disclosure is being madepursuant to the Care Everywhere program and may not contain all information available regarding this patient. Last updated 18.[facility] Allergies Active Allergy Reactions Criticality Noted Date Comments Honey Swelling 03/30/2024 Medications * Be aware that medications may not be up to date on this document. Alwaysverify current medications with the patient. acarbose (Precose) 50 MG tablet Take 1 (one) tablet by mouth 3 times daily 01/12/20 24 Active glimepiride (Amaryl) 2 MG tablet Take 1 (one) tablet by mouth 2 times daily with morning and evening meal 01/02/20 24 Active levothyroxine (Synthroid) 125 MCG tablet Take 1 (one) tablet by mouth once daily 01/01/20 24 Active olmesartan (Benicar) 20 MG tablet Take 1 (one) tablet by mouth once daily 01/02/20 24 Active Ozempic, 1 MG/DOSE, 4 MG/3ML pen Inject 1 (one) mg subcutaneously every 7 days 11/11/19 24 Active simvastatin (Zocor) 40 MG tablet Take 1 (one) tablet by mouth once daily 01/01/20 24 Active lidocaine viscous (Xylocaine) 2 % solution Swish and swallow 15 mL every 3 hours as needed for Sore Throat or Pain 100 mL 5 05/21/20 24 Active Additional Information Patient not taking.Reported on 12/19/2024 acetaminophen CR (Tylenol Arthritis Pain) 650 MG tablet Take 1 (one) tablet by mouth 2 times daily Active lidocaine viscous (Xylocaine) 2 % solution Swish and swallow 15 mL every 3 hours as needed for Sore Throat or Pain 600 mL 03/20/20 25 Active lidocaine viscous (Xylocaine) 2 % solution Swish and swallow 15 mL as needed for Sore Throat or Pain 600 mL 03/20/20 25 025 Discontin ued(List Clean-Up) Active Problems Problem Noted Date Diagnosed Date Moderate protein-calorie malnutrition 06/01/2024 Weight loss, unintentional 06/01/2024 Inadequate dietary energy intake 06/01/2024 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, [place] [address] Elpidio Scott MD Squamous cell carcinoma of lip (Primary Dx) 03/20/2025 7:57 AM CDT - 03/20/2025 10:42 AM CDT Hospital Encounter [facility]C [address] [place] [phone] Miya Aleman MD Discharge Disposition: Home or Self Care 03/20/2025 Orders Only [facility] [address] [place] [address] Miya Aleman MD 03/20/2025 Travel 01/02/2025 Refill [facility] [address] [place] [id number] Miya Aleman MD Refill Request from Last 3 Months Immunizations Immunization Administration Dates Next Due FLU VACCINE TRI [...] Recorded Patient Health Questionnaire-2 Score 0 03/30/2024 [facility] [place] [facility] - Occupational Stress [...] place to sleep or slept in a group home (including now)? Patient unable to answer 02/27/2024 Sex and Gender Information Value Date Recorded Sex Assigned at Not on file Legal Sex Male 8:41 AM CDT Gender Identity Not on file Sexual Orientation Not on file Last Filed Vital Signs Vital Sign Reading Time Taken Comments Blood Pressure 112/65 03/20/2025 10:24 AM CDT Pulse 67 03/20/2025 10:24 AM CDT Temperature 36.6 C (97.9 F) 03/20/2025 8:07 AM CDT Respiratory Rate 16 03/20/2025 8:07 AM CDT Oxygen Saturation 99% 03/20/2025 8:07 AM CDT Inhaled Oxygen Concentration 21% 03/12/2024 4 :29 PM CDT Weight 72.1 kg (159 lb) 03/20/2025 10:24 AM CDT Height 177.8 cm (5' 10) 03/20/2025 10:24 AM CDT Body Mass Index 22.81 03/20/2025 10:24 AM CDT Plan of Treatment Upcoming Encounters Date Type Department Care Team (Late st Contact Info) Description 06/19/2025 8:30 AM CDT Appointment [facility] [address] [place] [phone] Miya Aleman MD [address] [place] [phone] 06/19/2025 9:30 AM CDT Office Visit [facility] - [facility]NT [address] [place] [phone] Elpidio Scott MD [address] [place] [phone] Health Maintenance Due Date Last Done Comments DTAP/TDAP/TD VACCINES (1 - Tdap) 1960 ZOSTER VACCINE (1 of 2) 1991 Respiratory Syncytial Virus (RSV) Vaccine Pt: or over 60 yrs (1 - 1-dose 75+ series) 2016 COVID-19 VACCINE ( season) 2024 DEPRESSION SCREENING 10/24/2024 03/30/2024 MEDICARE [...] complete this topic MENINGOCOCCAL (Group B) VACCINE SHARED DECISION-MAKING Aged Out No longer eligible based on patient's age to complete this topic MENINGOCOCCAL GROUPS A/C/Y/W VACCINE Aged Out No longer eligible based on patient's age to complete this topic Procedures Procedure Name Priority Date/Time Associated Diagnosis Comments TSH REFLEX FREE T4 Routine 03/20/2025 11 :43 AM CDT Squamous cell carcinoma of lip from Last 3 Months Results * TSH REFLEX FREE T4 (03/20/2025 11:43 AM CDT) TSH 0.358 0.350 - 4.940 uIU/mL 03/20/2025 1:04 PM CDT [facility] Blood BLOOD SPECIMEN / Unknown Lab Venipuncture / Unknown 03/20/2025 11:43 AM CDT 03/20/2025 12:16 PM CDT us Miya Aleman MD LAB - CHEMISTRY ORDERABLES Final Result [facility] [address] [place] [address], [place] [phone] from Last 3 Months Insurance [facility] MEDICARE ADV D-SNP & C-SNP Advance Directives * Full Code (Latest Code Status on File) Date Activated Date Inactivated Comments 02/27/2024 3:40 PM 03/25/2024 5:05 PM Care Teams Tax Advisor Relationship Specialty Start Date End Date Chhaya Thornton APRN-CNP [address] [place] [phone] PCP - General Nurse Practitioner Adult Health 02/10/24
--- OUTSIDE RECORDS SUMMARY | 2025-04-02 08:47 | XMS_ITS ---
Author Organization [facility] Address [address] 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 Past Treatment and Therapy Plans No past plan information found. Radiation Treatments * Course C1_OralCavity 05/03/2024 - 06/13/2024 Treatment Period Energy Fraction Dose Fractions Total Dose Plans Planned #OralCavityHN 05/03/2024 - 06/13/2024 30 / 30 6,000 cGy Reference Points Delivered [id number] 05/03/2024 - 06/13/2024 6,000 cGy Lifetime Dose Tracking * Chemical Lifetime Dose Automatic Entry Manual Entr y Dose Length Product 570 mGy-cm 570 mGy-cm 0 mGy-cm
--- OUTSIDE RECORDS SUMMARY | 2025-04-02 08:47 | XMS_ITS | Encounter Summary ---
Author Organization [facility] Health Address [address] [place] [address] Care Team Providers Care Certified Coatings Inspector Name Role Phone Chhaya Thornton PAPER BALING MACHINE OPERATOR-SOUND EFFECTS SUPERVISOR Primary Care Provider [phone] Reason for Visit * Reason Comments Refill Request Encounter Details Date Type Department Care Team (Late st Contact Info) Description 01/02/2025 Refill [facility] [place] [address] Miya Aleman MD [facility] [place] [address] Refill Request Social History Tobacco Use Types Packs/Day Years Used Date Smoking Tobacco: Former Cigarettes Smokeless Tobacco: Never Passive Exposure Comments:re ports smoking 1 cigarette when he was 19yrs [...] Recorded Patient Health Questionnaire-2 Score 0 03/30/2024 [facility] [place] of Occupat ional Health - Occupational Stress [...] place to sleep or slept in a long-term (including now)? Patient unable to answer 02/27/2024 Sex and Gender Information Value Date Recorded Sex Assigned at Not on file Legal Sex Male 8:41 AM CDT Gender Identity Not on file Sexual Orientation Not on file documented as of this encounter Functional Status * Is person deaf or have serious hearing difficulty? Answer Date of Assessment Author Yes 04/17/2024 9:44 AM CDT Elliott Damian RN * Is person blind or have serious difficulty seeing? Answer Date of Assessment Author No 04/17/2024 9:44 AM SUNNYT Elliott Damian RN * Does person have serious difficulty walking/climbing stairs? Answer Date of Assessment Author No 04/17/2024 9:44 AM SUNNYT Elliott Damian RN * Does person have difficulty dressing/bathing? Answer Date of Assessment Author No 04/17/2024 9:44 AM CDT Elliott Damian RN * Does person have difficulty doing errands alone? Answer Date of Assessment Author No 04/17/2024 9:44 AM CDT Elliott Damian RN documented as of this encounter Mental Status * Does person have difficulty concentrating/remembering/making decisions? Answer Entry Date Author No 04/17/2024 9:44 AM CDT Elliott Damian RN documented in this encounter Plan of Treatment Upcoming Encounters Date Type Department Care Team (Late st Contact Info) Description 06/19/2025 8:30 AM CDT Appointment [facility] ONC [address] [place], [place] [phone] Miya Aleman MD [facility] [place] [phone] 06/19/2025 9:30 AM CDT Office Visit [facility] - ENT [address] [place] [phone] Elpidio Scott MD [address] [place] [phone] documented as of this encounter Visit Diagnoses Not on filedocumented in this encounter Care Teams Certified Coatings Inspector Relationship Specialty Start Date End Date Chhaya Thornton APRN-LA NENA [address] [place] [address] PCP - General Nurse Practitioner Adult Health 02/10/24 documented as of this encounter
[2025-04-02 09:37] LABS: Hematocrit 30.8 % (42.0-52.0); Hemoglobin 9.6 g/dL (14.0-18.0); Immature Granulocyte Absolute 0.01 K/mm3 (0.00-0.031); Immature Granulocyte Percent A 0.3 % (0-0.5); Lymphocytes Absolute Auto 0.92 K/mm3 (0.9-3.2); Lymphocytes Percent Auto 23.1 % (18.3-44.2); Mean Corpuscular HGB Conc 31.2 g/dl (32-36); Mean Corpuscular Hemoglobin 31.9 pg (26-34); Mean Corpuscular Volume 102.3 fl (80-100); Mean Platelet Volume 10.4 fl (7.4-10.4); Monocytes Absolute Auto 0.5 K/mm3 (0.1-0.6); Neutrophils Absolute Auto 2.5 K/mm3 (1.3-6.7); Neutrophils Percent Auto 62.6 % (45.5-73.1); Nucleated Red Blood Cells Perc 0.8 % (0.0-0.2); Platelet Count Result 304 k/mm3 (150-375); Red Blood Count 3.01 M/mm3 (4.6-6.20); Red Cell Distribution Width 14.6 % (11.5-14.5)
[2025-04-02 09:49] LABS: Alanine Aminotransferase 18 U/L (6-50); Albumin Level 3.7 g/dL (3.5-5.1); Alkaline Phosphatase 64 U/L (38-126); Anion Gap 6 mmol/L (4-12); Aspartate Amino Transferase 26 U/L (17-59); Bilirubin,Total 0.5 mg/dL (0.2-1.3); Blood Urea Nitrogen 37 mg/dL (9-20); Calcium 9.3 mg/dL (8.4-10.2); Carbon Dioxide 22 mmol/L (22-30); Chloride 110 mmol/L (98-107); Cholesterol 122 mg/dL (0-200); Estimated Glomerular Filt Rate 41; Glucose 132 mg/dL (65-110); HDL Direct 57 mg/dL; Sodium 138 mmol/L (137-145); Total Protein 6.2 g/dL (6.3-8.2); Triglycerides 46 mg/dL (<150)
[2025-04-02 10:00] LABS: LDL Cholesterol Direct 45 mg/dL
[2025-04-02 10:06] LABS: Hemoglobin A1C 6.1 % (<5.7)
== END 2025-04-02 08:35 | disposition home or self-care (01) ==
LOC: ANHLAB 08:35
PROVIDERS: PCP Nurse Practitioner Family; Visit Provider Nurse Practitioner Family
DX: I12.9 Hypertensive chronic kidney disease with stage 1 through stage 4 chronic kidney disease, or unspecified chronic kidney disease (principal); E11.22 Type 2 diabetes mellitus with diabetic chronic kidney disease; N18.30 Chronic kidney disease, stage 3 unspecified; E03.9 Hypothyroidism, unspecified
CPT/HCPCS: 36415; 80053; 80061; 83036; 85025

== ENCOUNTER 2025-05-28 08:09 | Outpatient (CLI) | payer MEDICARE, SELFPAY ==
--- OUTSIDE RECORDS SUMMARY | 2025-05-28 08:13 | XMS_ITS | Clinical Summary ---
Author Organization [facility] Address [address] [place] [address] Phone Care Team Providers Care Honeycomb Blanket Maker Name Role Phone Venkata Rocha DO Primary Care Provider [phone] Allergies No known active allergies Medications simvastatin (ZOCOR) 40 MG tablet 1 qday 0 12/06/2018 Active aspirin (ASPIRIN ADULT LOW STRENGTH) 81 MG EC tablet 1 qday 0 12/06/2018 Act betito ergocalciferol (VITAMIN D-2) 02722 units capsule 1 every month 0 12/06/2018 [...] on file Legal Sex Male 9:34 AM [facility] Gender Identity Not on file Sexual Orientation [...] and Medium Risk (2 of 3 - PCV20 or PCV21) 09/03/2020 09/03/2019 Influenza Vaccine (#1) 2025 11/17/2018 Insurance MEDICARE [facility] Care Teams Honeycomb Blanket Maker Relationship Specialty Start Date End Date Venkata Rocha DO [address] [place] [phone] PCP - General Internal Medicine 06/02/20
--- OUTSIDE RECORDS SUMMARY | 2025-05-28 08:13 | XMS_ITS | Clinical Summary ---
Author Organization [facility] Address [address] [place] [address] Care Team Providers Care Tube Pusher Name Role Phone Chhaya Thornton MELANIA-OFFSET PLATE PREPARATION SUPERVISOR Primary Care Provider [phone] Source Comments [facility],non-owned Affiliates and Associated Physician Practices is amultiple site organization consisting of ambulatory clinics and hospital sitesin [place], [place], [place] and [place]. This disclosure is being madepursuant to the Care Everywhere program and may not contain all information available regarding this patient. Last updated 18.[facility] Allergies Active Allergy Reactions Criticality Noted Date Comments Honey Swelling 03/30/2024 Medications * Be aware that medications may not be up to date on this document. Alwaysverify current medications with the patient. acarbose (Precose) 50 MG tablet Take 1 (one) tablet by mouth 3 times daily 4 Active glimepiride (Amaryl) 2 MG tablet Take 1 (one) tablet by mouth 2 times daily with morning and evening meal 4 Active levothyroxine (Synthroid) 125 MCG tablet Take 1 (one) tablet by mouth once daily 4 Active olmesartan (Benicar) 20 MG tablet Take 1 (one) tablet by mouth once daily 4 Active Ozempic, 1 MG/DOSE, 4 MG/3ML pen Inject 1 (one) mg subcutaneously every 7 days 4 Active simvastatin (Zocor) 40 MG tablet Take 1 (one) tablet by mouth once daily 4 Active lidocaine viscous (Xylocaine) 2 % solution Swish and swallow 15 mL every 3 hours as needed for Sore Throat or Pain 100 mL 5 4 Active Additional Information Patient not taking.Reported on 12/19/2024 acetaminophen CR (Tylenol Arthritis Pain) 650 MG tablet Take 1 (one) tablet by mouth 2 times daily Active lidocaine viscous (Xylocaine) 2 % solution Swish and swallow 15 mL every 3 hours as needed for Sore Throat or Pain 600 mL 5 5 Active Active Problems Problem Noted Date Diagnosed Date Moderate protein-calorie malnutrition 06/01/2024 Weight loss, unintentional 06/01/2024 Inadequate dietary energy intake 06/01/2024 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 Encounters Date Type Department Care Team Description 03/20/2025 10:43 AM CDT - 03/20/2025 11:59 PM CDT Hospital Encounter [facility] DRAW [facility] [address] [place] [address] Discharge Disposition: Home or Self Care 03/20/2025 10:30 AM CDT Office Visit [facility] [address] [facility], [place] [address] Elpidio Scott MD Squamous cell carcinoma of lip (Primary Dx) 03/20/2025 7:57 AM CDT - 03/20/2025 10:42 AM CDT Hospital Encounter [facility] ONC [address] [place] [address] Miya Aleman MD Discharge Disposition: Home or Self Care 03/20/2025 Orders Only [facility]C [address] [place] [address] Miya Aleman MD 03/20/2025 Travel from Last 3 Months Immunizations Immunization Administration [...] Recorded Patient Health Questionnaire-2 Score 0 03/30/2024 [facility] of Occupat ional [facility] - Occupational Stress Questionnaire Answer Date Recorded [...] place to sleep or slept in a halfway (including now)? Patient unable to answer 02/27/2024 [...] Info) Description 06/19/2025 8:30 AM CDT Appointment [facility] ON[facility] [place] [address] Miya Aleman MD [address] [place] [address] 06/19/2025 9:30 AM CDT Office Visit [facility] - ENT [address] [place] [phone] Elpidio Scott MD [address] [place] [address] Health Maintenance Due Date Last Done Comments DTAP/TDAP/TD VACCINES (1 - Tdap) 1960 ZOSTER VACCINE (1 of 2) 1991 Respiratory Syncytial Virus (RSV) Vaccine Pt: or over 60 yrs (1 - 1-dose 75+ series) 2016 COVID-19 VACCINE (1 - season) 2024 DEPRESSION SCREENING 10/24/2024 03/30/2024 MEDICARE AWV CALENDAR YEAR 2024 INFLUENZA VACCINE (#1) 2025 , 08/20/2023, 08/09/2022, Additional history exists PNEUMOCOCCAL VACCINE 50+ Completed 019, 11/29/2011, 06/29/2007 HEPATITIS B VACCINE Aged Out No longe [...] - 4.940 uIU/mL 03/20/2025 1:04 PM CDT [facility] Blood BLOOD SPECIMEN / Unknown Lab Venipuncture / Unknown 03/20/2025 11:43 AM CDT 03/20/2025 12:16 PM CDT us Miya Aleman MD LAB - CHEMISTRY ORDERABLES Final Result [facility] [address] [place] [address], [place] [phone] from Last 3 Months Insurance [facility] MEDICARE ADV D-SNP & C-SNP Advance Directives * Full Code (Latest Code Status on File) Date Activated Date Inactivated Comments 02/27/2024 3:40 PM 03/25/2024 5:05 PM Care Teams Tube Pusher Relationship Specialty Start Date End Date Chhaya Thornton APRN-LA NENA [address] [place] [phone] PCP - General Nurse Practitioner Adult Health 02/10/24
--- OUTSIDE RECORDS SUMMARY | 2025-05-28 08:13 | XMS_ITS | Encounter Summary ---
Author Organization [facility] Address [address] [place] [address] Care Team Providers Care Pipe And Test Supervisor Name Role Phone Chhaya Thornton COLLEGE OR UNIVERSITY DEPARTMENT HEAD-MOSAICIST Primary Care Provider [phone] Reason for Visit * Reason Comments Refill Request Encounter Details Date Type Department Care Team (Late st Contact Info) Description 01/02/2025 Refill [facility] [address] [place] [address] Miya Aleman MD [facility] [place] [address] Refill Request Social History Tobacco [...] Recorded Patient Health Questionnaire-2 Score 0 03/30/2024 [facility] [place] of Occupat ional Health - Occupational Stress [...] Info) Description 06/19/2025 8:30 AM CDT Appointment [facility] ONC [address] [place], [place] [phone] Miya Aleman MD [facility] [place] [phone] 06/19/2025 9:30 AM CDT Office Visit [facility] - ENT [address] [place] [phone] Elpidio Scott MD [address] [place] [address] documented as of this encounter Visit Diagnoses Not on filedocumented in this encounter Care Teams Pipe And Test Supervisor Relationship Specialty Start Date End Date Chhaya Thornton APRN-LA NENA [address] [place] [address] PCP - General Nurse Practitioner Adult Health 02/10/24 documented as of this encounter
--- OUTSIDE RECORDS SUMMARY | 2025-05-28 08:13 | XMS_ITS ---
Author Organization [facility] Address [address] [place] [address] Care Team Providers Care Ironworker Apprentice Shop Name Role Phone Chhaya Thornton SYNTHETIC GEM PRESS OPERATOR-AIR CARGO AGENT Primary Care Provider Active Problems Problem Noted [...]
[2025-05-28 08:51] LABS: Hematocrit 30.8 % (42.0-52.0); Hemoglobin 9.7 g/dL (14.0-18.0); Immature Granulocyte Percent A 0.4 % (0-0.5); Lymphocytes Absolute Auto 1.01 K/mm3 (0.9-3.2); Mean Corpuscular HGB Conc 31.5 g/dl (32-36); Mean Corpuscular Hemoglobin 31.7 pg (26-34); Mean Corpuscular Volume 100.7 fl (80-100); Nucleated Red Blood Cells Absolute Auto 0.050 K/mm3 (0.0-0.012); Nucleated Red Blood Cells Perc 1.1 % (0.0-0.2); Platelet Count Result 338 k/mm3 (150-375); Red Blood Count 3.06 M/mm3 (4.6-6.20); White Blood Count 4.6 K/mm3 (4.5-10.0)
[2025-05-28 09:31] LABS: Total Protein Urine Random 18 mg/dL; Ur Ttl Prot Creatinine Ratio 0.30 mg/mg (0-0.20)
[2025-05-28 09:35] LABS: Albumin Level 3.9 g/dL (3.5-5.1); Anion Gap 5 mmol/L (4-12); Blood Urea Nitrogen 44 mg/dL (9-20); Calcium 9.3 mg/dL (8.4-10.2); Carbon Dioxide 22 mmol/L (22-30); Chloride 107 mmol/L (98-107); Estimated Glomerular Filt Rate 44; Glucose 153 mg/dL (65-110); Potassium 5.0 mmol/L (3.4-5.0); Sodium 134 mmol/L (137-145)
[2025-05-28 09:36] LABS: Iron 131 ug/dL (49-181)
[2025-05-28 09:45] LABS: Percent Iron Saturation 60 % (20-50)
[2025-05-28 10:17] LABS: Ferritin 402.00 ng/mL (11.1-264)
[2025-05-28 10:20] LABS: Thyroid Stimulating Hormone 0.736 uIU/mL (0.465-4.680)
[2025-05-28 10:56] LABS: Vitamin B12 770.0 pg/mL (239-931)
== END 2025-05-28 08:10 | disposition home or self-care (01) ==
LOC: ANHLAB 08:12
PROVIDERS: PCP Nurse Practitioner Family; Referring Provider Nurse Practitioner Family; Visit Provider Internal Medicine Nephrology
DX: I12.9 Hypertensive chronic kidney disease with stage 1 through stage 4 chronic kidney disease, or unspecified chronic kidney disease (principal); E11.22 Type 2 diabetes mellitus with diabetic chronic kidney disease; D63.1 Anemia in chronic kidney disease; N18.32 Chronic kidney disease, stage 3b; E03.9 Hypothyroidism, unspecified
CPT/HCPCS: 36415; 80069; 82570; 82607; 82728; 82746; 83540; 83550; 84156; 84443; 85025

== ENCOUNTER 2025-06-26 11:27 | Outpatient (NON) | payer MEDICARE, SELFPAY ==
[2025-06-26 12:15] LABS: IFOB Positive Control Positive; Immunochemical Fecal Occult Bl Negative (N)
--- OUTSIDE RECORDS SUMMARY | 2025-06-26 13:15 | XMS_ITS | Encounter Summary ---
Author Organization [facility] Address [address] [address] Care Team Providers Care Pony Worker Name Role Phone Chhaya Thornton MACHINE WOOD SANDER-RN CRITICAL CARE Primary Care Provider [phone] Reason for Visit * Reason Comments Refill Request Encounter Details Date Type Department Care Team (Late st Contact Info) Description 01/02/2025 Refill [facility] [address] [place] [address] Miya Aleman MD [facility] [place] [address] Refill Request Social History Tobacco [...] Recorded Patient Health Questionnaire-2 Score 0 03/30/2024 [facility] [place] of Occupat ional Health - Occupational Stress [...] Upcoming Encounters Date Type Department Care Team (Latest Contact Info) Description 06/28/2025 9:30 AM CDT Appointment [facility] [address] [place] [phone] 07/04/2025 1:35 PM CDT Hospital Encounter [facility] [place] [address] [place] [phone] Elpidio Scott MD [address] [place] [address] Surgery General 07/04/2025 1:35 PM CDT Anesthesia Event [facility] [address] [place] [phone] Kelley Hernandez, MACHINE WOOD SANDER-RN CRITICAL CARE [address] [facility] DEPT [place] [address] 07/04/2025 1:35 PM CDT - 07/04/2025 3:20 PM CDT Surgery [facility] [address] [place] [phone] Elpidio Scott MD [address] [place] [phone] Left chin debridement and local flap 09/11/2025 8:30 AM REWRITE EDITOR Appointment [facility] [place] [address] Miya Aleman MD [address] [place] [phone] Scheduled Procedures Name Priority Associated Diagnoses Date/Ti me EXCISION/BIOPSY LESION FACE 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
--- OUTSIDE RECORDS SUMMARY | 2025-06-26 13:15 | XMS_ITS ---
Author Organization [facility] Address [address] [place] [address] Care Team Providers Care Graphics Specialist Name Role Phone Chhaya Thornton SWAMPER-HIGHWAY CONSTRUCTION INSPECTOR Primary Care Provider [phone] Active Problems Problem Noted Date Diagnosed Date [...]
--- OUTSIDE RECORDS SUMMARY | 2025-06-26 13:15 | XMS_ITS | Clinical Summary ---
Author Organization [facility] Address [address] [place] [address] Phone Care Team Providers Care Industrial Tractor Driver Name Role Phone Venkata Rocha DO Primary Care Provider [phone] Allergies No known active allergies Medications simvastatin (ZOCOR) 40 MG tablet 1 qday 0 12/06/2018 Active aspirin (ASPIRIN ADULT LOW STRENGTH) 81 MG EC tablet 1 qday 0 12/06/2018 Act betito ergocalciferol (VITAMIN D-2) 52444 units capsule 1 every month 0 12/06/2018 [...] on file Legal Sex Male 9:34 AM [facility] Gender Identity Not on file Sexual [...] Influenza Vaccine (#1) 2025 11/17/2018 Insurance MEDICARE [facility] Care Teams Industrial Tractor Driver Relationship Specialty Start Date End Date Venkata Rocha DO [address] [place] [phone] PCP - General Internal Medicine 06/02/20
--- OUTSIDE RECORDS SUMMARY | 2025-06-26 13:15 | XMS_ITS | Clinical Summary ---
Author Organization [facility] Address [address] [place] [address] Care Team Providers Care Testing And Regulating Chief Name Role Phone Chhaya Thornton MELANIA-GEOTECHNICAL ENGINEERING TECHNICIAN Primary Care Provider [phone] Source Comments [facility],non-owned Affiliates and Associated Physician Practices is amultiple site organization consisting of ambulatory clinics and hospital sitesin [place], [place], [place] and [place]. This disclosure is being madepursuant to the Care Everywhere program and may not contain all information available regarding this patient. Last updated 18.[facility] Allergies Active Allergy Reactions Criticality Noted Date [...] 5 4 Active Additional Information Patient not taking.Reason: Patient adjusted, Reported on 06/19/2025 acetaminophen CR (Tylenol Arthritis Pain) 650 MG tablet Take 1 (one) tablet by mouth 2 times daily Active lidocaine viscous (Xylocaine) 2 % solution Swish and swallow 15 mL every 3 hours as needed for Sore Throat or Pain 600 mL 5 Active Cholecalcifero l (VITAMIN D-3 PO) Take 1 capsule by mouth once daily Active Active Problems Problem Noted Date Diagnosed Date Moderate protein-calorie malnutrition 06/01/2024 Weight loss, unintentional 06/01/2024 Inadequate dietary energy intake 06/01/2024 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 Encounters Date Type Department Care Team Description 06/21/2025 Telephone [facility] [address] [place] [phone] October Surgery Scheduling 06/19/2025 9:30 AM CDT Office Visit [facility] - [facility]NT [address] [place] [phone] Elpidio Scott MD Squamous cell carcinoma of lip (Primary Dx) 06/19/2025 8:08 AM CDT - 06/19/2025 11:59 PM CDT Hospital Encounter [facility] [place] [address] Miya Aleman MD Discharge Disposition: Home or Self Care from Last 3 Months Immunizations Immunization Administration Dates Next Due FLU VACCINE QUAD IIV4 SPLIT 0.25 ML IM 08/25/2020 FLU VACCINE TRI IIV3 SPLIT I M (FLUVIRIN) 06/29/2010 INFLUENZA [id number], HISTORIC VACCINE 07/24/2021 INFLUENZA VACCINE, ADJUVANTE D, QUADR. (FLUAD QUADRIVALENT; [...] Recorded Patient Health Questionnaire-2 Score 0 03/30/2024 [facility] of Occupat ional Health - Occupational Stress [...] place to sleep or slept in a residential (including now)? Patient unable to answer 02/27/2024 Sex and Gender Information Value Date Recorded Sex Assigned at Not on file Legal Sex Male 8:41 AM CDT Gender Identity Not on file Sexual Orientation Not on file Last Filed Vital Signs Vital Sign Reading Time Taken Comments Blood Pressure 114/69 06/19/2025 9:13 AM CDT Pulse 66 06/19/2025 9:13 AM CDT Temperature 36.5 C (97.7 F) 06/19/2025 8:35 AM CDT Respiratory Rate 18 06/19/2025 8:35 AM CDT Oxygen Saturation 97% 06/19/2025 8:35 AM CDT Inhaled Oxygen Concentration 21% 03/12/2024 4 :29 PM CDT Weight 74.4 kg (164 lb) 06/19/2025 9:13 AM CDT Height 177.8 cm (5' 10) 06/19/2025 9:13 AM CDT Body Mass Index 23.53 06/19/2025 9:13 AM CDT Plan of Treatment Upcoming Encounters Date Type Department Care Team (Latest Contact Info) Description 06/28/2025 9:30 AM CDT Appointment [facility] [address] [place] [phone] 07/04/2025 1:35 PM CDT Hospital Encounter [facility] OP [address] [place] [phone] Elpidio Scott MD [address] [place] [address] Surgery General 07/04/2025 1:35 PM CDT Anesthesia Event [facility] [address] [place] [phone] Kelley Hernandez, GEAR LAPPING MACHINE OPERATOR-GEOTECHNICAL ENGINEERING TECHNICIAN [address] [facility] [place] [address] 07/04/2025 1:35 PM CDT - 07/04/2025 3:20 PM CDT Surgery [facility] OP [address] [place] [phone] Elpidio Scott MD [address] [place] [address] Left chin debridement and local flap 09/11/2025 8:30 AM FRAME COVERER Appointment [facility] [address] [place] [address] Miya Aleman MD [address] [place] [phone] Scheduled Procedures Name Priority Associated Diagnoses Date/Ti me EXCISION/BIOPSY LESION FACE Squamous cell carcinoma of lip 07/04/2025 1:35 PM CDT Health Maintenance Due Date Last Done Comments DTAP/TDAP/TD VACCINES (1 - Tdap) 1960 ZOSTER VACCINE (1 of 2) 1991 Respiratory Syncytial Virus (RSV) Vaccine Pt: or over 60 yrs (1 - 1-dose 75+ series) 2016 DEPRESSION SCREENING 10/24/2024 03/30/2024 MEDICARE AWV CALENDAR YEAR 2024 COVID-19 VACCINE ( - 2023- season) 2025 INFLUENZA VACCINE (#1) 2025 4, 08/20/2023, 08/09/2022, Additional history exists PNEUMOCOCCAL VACCINE [...] on patient's age to complete this topic Insurance [employer] MEDICARE ADV D-SNP & C-SNP Advance Directives * Full Code (Latest Code Status on File) Date Activated Date Inactivated Comments 02/27/2024 3:40 PM 03/25/2024 5:05 PM Care Teams Testing And Regulating Chief Relationship Specialty Start Date End Date Chhaya Thornton APRN-LA NENA [address] [place] [phone] PCP - General Nurse Practitioner Adult Health 02/10/24
== END 2025-06-26 11:28 | disposition home or self-care (01) ==
LOC: ANHLAB 11:28
PROVIDERS: PCP Nurse Practitioner Family; Visit Provider Nurse Practitioner Family
DX: D64.9 Anemia, unspecified (principal)
CPT/HCPCS: 82274

== ENCOUNTER 2025-08-02 13:25 | Outpatient (CLI) | payer MEDICARE, SELFPAY ==
[2025-08-02 13:39] LABS: Hematocrit 35.4 % (42.0-52.0); Hemoglobin 11.1 g/dL (14.0-18.0); Immature Granulocyte Percent A 0.5 % (0-0.5); Lymphocytes Absolute Auto 1.04 K/mm3 (0.9-3.2); Mean Corpuscular HGB Conc 31.4 g/dl (32-36); Mean Corpuscular Hemoglobin 32.1 pg (26-34); Mean Corpuscular Volume 102.3 fl (80-100); Nucleated Red Blood Cells Absolute Auto 0.050 K/mm3 (0.0-0.012); Nucleated Red Blood Cells Perc 0.9 % (0.0-0.2); Platelet Count Result 356 k/mm3 (150-375); Red Blood Count 3.46 M/mm3 (4.6-6.20); White Blood Count 5.9 K/mm3 (4.5-10.0)
[2025-08-02 14:21] LABS: Iron 67 ug/dL (49-181)
[2025-08-02 14:23] LABS: Alanine Aminotransferase 28 U/L (6-50); Albumin Level 4.6 g/dL (3.5-5.1); Alkaline Phosphatase 62 U/L (38-126); Anion Gap 9 mmol/L (4-12); Aspartate Amino Transferase 36 U/L (17-59); Bilirubin,Total 0.5 mg/dL (0.2-1.3); Blood Urea Nitrogen 36 mg/dL (9-20); Calcium 9.8 mg/dL (8.4-10.2); Carbon Dioxide 25 mmol/L (22-30); Chloride 102 mmol/L (98-107); Estimated Glomerular Filt Rate 46; Glucose 156 mg/dL (65-110); Potassium 5.0 mmol/L (3.4-5.0); Sodium 136 mmol/L (137-145); Total Protein 7.5 g/dL (6.3-8.2)
[2025-08-02 14:32] LABS: Percent Iron Saturation 30 % (20-50)
[2025-08-02 15:03] LABS: Ferritin 480.00 ng/mL (11.1-264)
[2025-08-02 16:03] LABS: Vitamin B12 944.0 pg/mL (239-931)
[2025-08-05 15:08] LABS: Albumin 3.9 g/dL (2.9-4.4); Alpha-1-Globulin 0.2 g/dL (0.0-0.4); Alpha-2-Globulin 0.8 g/dL (0.4-1.0); Gamma Globulin 0.9 g/dL (0.4-1.8)
== END 2025-08-02 13:26 | disposition home or self-care (01) ==
LOC: ANHLAB 13:26
PROVIDERS: PCP Nurse Practitioner Family; Visit Provider Internal Medicine Hematology & Oncology
DX: D64.9 Anemia, unspecified (principal)
CPT/HCPCS: 36415; 80053; 82607; 82668; 82728; 82746; 83540; 83550; 84155; 84165; 84238; 85025

== ENCOUNTER 2025-10-03 08:27 | Outpatient (CLI) | payer MEDICARE, SELFPAY ==
[2025-10-03 09:13] LABS: Hematocrit 36.4 % (42.0-52.0); Hemoglobin 11.6 g/dL (14.0-18.0); Immature Granulocyte Percent A 0.2 % (0-0.5); Lymphocytes Absolute Auto 0.92 K/mm3 (0.9-3.2); Mean Corpuscular HGB Conc 31.9 g/dl (32-36); Mean Corpuscular Hemoglobin 32.9 pg (26-34); Mean Corpuscular Volume 103.1 fl (80-100); Nucleated Red Blood Cells Absolute Auto 0.030 K/mm3 (0.0-0.012); Nucleated Red Blood Cells Perc 0.7 % (0.0-0.2); Platelet Count Result 364 k/mm3 (150-375); Red Blood Count 3.53 M/mm3 (4.6-6.20); White Blood Count 4.4 K/mm3 (4.5-10.0)
[2025-10-03 09:39] LABS: Alanine Aminotransferase 18 U/L (6-50); Albumin Level 4.4 g/dL (3.5-5.1); Alkaline Phosphatase 57 U/L (38-126); Anion Gap 5 mmol/L (4-12); Aspartate Amino Transferase 30 U/L (17-59); Bilirubin,Total 0.8 mg/dL (0.2-1.3); Blood Urea Nitrogen 34 mg/dL (9-20); Calcium 9.8 mg/dL (8.4-10.2); Carbon Dioxide 26 mmol/L (22-30); Chloride 106 mmol/L (98-107); Estimated Glomerular Filt Rate 36; Glucose 98 mg/dL (65-110); Potassium 4.6 mmol/L (3.4-5.0); Sodium 137 mmol/L (137-145); Total Protein 7.3 g/dL (6.3-8.2)
[2025-10-03 10:11] LABS: Hemoglobin A1C 7.1 % (<5.7)
== END 2025-10-03 08:28 | disposition home or self-care (01) ==
PROVIDERS: PCP Nurse Practitioner Family; Visit Provider Nurse Practitioner Family
DX: I12.9 Hypertensive chronic kidney disease with stage 1 through stage 4 chronic kidney disease, or unspecified chronic kidney disease (principal); N18.30 Chronic kidney disease, stage 3 unspecified; E11.22 Type 2 diabetes mellitus with diabetic chronic kidney disease; D63.1 Anemia in chronic kidney disease; E03.9 Hypothyroidism, unspecified
CPT/HCPCS: 36415; 80053; 83036; 85025